=== PATIENT | female | born 1960 | race Caucasian/White ===

== ENCOUNTER 2016-11-23 13:10 | Emergency (ER) | payer SELFPAY ==
[~2016-11-23] VITALS: Ht 170.2 cm; Wt 67.0 kg
[~2016-11-23 13:10] MED LIST: LISI-363 PO
[2016-11-23 13:12] VITALS: BP 193/92; PULSE 96; RESP 18; TEMP 98.1; O2SAT 98
[2016-11-23] MEDS ORDERED: LISI-515 PO (13:36)
[2016-11-23] MEDS ORDERED: SODIUM CHLOR 0.9% 1000 ML INJ 1,000 ML IV SCH (13:42)
[2016-11-23] MEDS ORDERED: SODIUM CHLORIDE 0.9% FLUSH 10 ML FLUSH IV FLUSH PRN (13:45)
[2016-11-23] MEDS ORDERED: MORPHINE SULFATE 4 MG/ML INJ IV PUSH ONE (13:45)
--- NOTE | 2016-11-23 13:45 | PD ---
HPI Chief Complaint: Complaint Time Seen by Provider: 13:36 Travel History International Travel<30 days: No Contact w/Intl Traveler<30days: No Traveled to known affect area: No History of Present Illness HPI 56-year-old female with history of kidney stones, here for evaluation of right flank pain. The patient reports that she has had right flank pain for the last 2 weeks. She describes the pain as sharp, constant, moderate, no modifying factors, no urinary symptoms, associated with nausea and a couple episodes of vomiting. Chart review shows the patient has been here in the past with alcohol intoxication. She tells me that her last alcoholic beverage was about a week ago. She denies illicit drug use. She reports having subjective fevers and chills. PFSH Past Medical History Arthritis: No Asthma: No Autoimmune Disease: No Blood Disorders: No Anxiety: No Depression: Yes Heart Rhythm Problems: No Cancer: No Cardiac Catheterization: Yes (ON HISTORY, UNKNOWN DATE) Cardiovascular Problems: Yes High Cholesterol: Yes Chemotherapy: No Chest Pain: No Congestive Heart Failure: No COPD: No Cerebrovascular Accident: No Diabetes: No Diminished Hearing: Yes Endocrine: No Gastrointestinal Disorders: No Genetic Disorder: Yes GERD: Yes Genitourinary: Yes (precancer uterine cells) Headaches: No Hepatitis: No Hiatal Hernia: No Hypertension: Yes Immune Disorder: No Kidney Stones: Yes Musculoskeletal: Yes (DJD) Neurologic: No Psychiatric: Yes Respiratory: Yes (recent intubation) Myocardial Infarction: No Radiation Therapy: No Renal Failure: Yes Seizures: No Sickle Cell Disease: No Sleep Apnea: No Thyroid Disease: No Ulcer: No Tetanus Vaccination: > 5 Years ?: Not Menopausal: Yes : 3 Para: 3 Miscarriage: 1 : 1 Past Surgical History Abdominal Surgery: No AICD: No Cardiac Surgery: No Ear Surgery: No Endocrine Surgery: Yes ( L LITHOTRIPSY;L NEPHROSTOMY PER PT) Eye Surgery: No Genitourinary Surgery: Yes (KIDNEY SURGERY) Gynecologic Surgery: No Joint Replacement: No Neurologic Surgery: No Oral Surgery: No Pacemaker: No Thoracic Surgery: No Other Surgery: Yes Family History Family Myocardial Infarction: Yes (FATHER) Social History Alcohol Use: No (BEERS / WINE EVERY OTHER DAY ) Tobacco Use: Yes (1/2 PACK PER DAY) Substance Use: No Allergies-Medications (Allergen,Severity, Reaction): Coded Allergies: Bactrim (Verified Allergy, Severe, rash, 3/22/17) Reported Meds & Prescriptions Reported Meds & Active Scripts Active Reported Lisinopril 20 Mg Tab 20 Mg PO DAILY Review of Systems Except as stated in HPI: all other systems reviewed are Neg Physical Exam Narrative GENERAL: Well-developed, well-nourished, awake, alert, no acute distress. SKIN: Warm and dry. No rash. HEAD: Atraumatic. Normocephalic. EYES: Pupils equal and round. No scleral icterus. No injection or drainage. ENT: Mucous membranes pink and moist. CARDIOVASCULAR: Regular rate and rhythm. RESPIRATORY: No accessory muscle use. Clear to auscultation. Breath sounds equal bilaterally. GASTROINTESTINAL: Abdomen soft, non-tender, nondistended. MUSCULOSKELETAL: No obvious deformities. No clubbing. No cyanosis. No edema. No midline vertebral step-off or tenderness. Mild right CVA tenderness. No left CVA tenderness. NEUROLOGICAL: Awake and alert. No obvious cranial nerve deficits. Motor grossly within normal limits. Normal speech. PSYCHIATRIC: Flat affect. Poor eye contact. Data Data Last Documented VS Vital Signs Date Time Temp Pulse Resp B/P Pulse Ox O2 Delivery O2 Flow Rate FiO2 11/23/16 15:20 64 18 177/77 98 Room Air 11/23/16 13:12 98.1 Orders Complete Blood Count With Diff (11/23/16 13:42) Comprehensive Metabolic Panel (11/23/16 13:42) Lipase (11/23/16 13:42) Prothrombin Time / Inr (Pt) (11/23/16 13:42) Act Partial Throm Time (Ptt) (11/23/16 13:42) Urinalysis - C+S If Indicated (11/23/16 13:42) Ct Abd/Pel W Iv Contrast(Rout) (11/23/16 13:42) Iv Access Insert/Monitor (11/23/16 13:42) Ecg Monitoring (11/23/16 13:42) Oximetry (11/23/16 13:42) Morphine Inj (Morphine Inj) (11/23/16 13:45) Sodium Chlor 0.9% 1000 Ml Inj (Ns 1000 M (11/23/16 13:42) Sodium Chloride 0.9% Flush (Ns Flush) (11/23/16 13:45) Alcohol (Ethanol) (11/23/16 13:42) Urine Culture (11/23/16 14:20) Ceftriaxone Inj (Rocephin Inj) (11/23/16 15:30) Iohexol 350 Inj (Omnipaque 350 Inj) (11/23/16 16:19) Ciprofloxacin (Cipro) (11/23/16 17:30) Labs Laboratory Tests Test 11/23/16 11/23/16 14:05 14:20 White Blood Count 6.3 TH/MM3 Red Blood Count 4.02 MIL/MM3 Hemoglobin 14.0 GM/DL Hematocrit 41.3 % Mean Corpuscular Volume 102.6 FL Mean Corpuscular Hemoglobin 34.9 PG Mean Corpuscular Hemoglobin 34.0 % Concent Red Cell Distribution Width 13.5 % Platelet Count 302 TH/MM3 Mean Platelet Volume 9.0 FL Neutrophils (%) (Auto) 63.3 % Lymphocytes (%) (Auto) 23.5 % Monocytes (%) (Auto) 11.4 % Eosinophils (%) (Auto) 1.4 % Basophils (%) (Auto) 0.4 % Neutrophils # (Auto) 4.0 TH/MM3 Lymphocytes # (Auto) 1.5 TH/MM3 Monocytes # (Auto) 0.7 TH/MM3 Eosinophils # (Auto) 0.1 TH/MM3 Basophils # (Auto) 0.0 TH/MM3 CBC Comment DIFF FINAL Differential Comment Prothrombin Time 10.6 SEC Prothromb Time International 1.0 RATIO Ratio Activated Partial 29.4 SEC Thromboplast Time Sodium Level 138 MEQ/L Potassium Level 3.8 MEQ/L Chloride Level 101 MEQ/L Carbon Dioxide Level 30.7 MEQ/L Anion Gap 6 MEQ/L Blood Urea Nitrogen 8 MG/DL Creatinine 0.75 MG/DL Estimat Glomerular Filtration 80 ML/MIN Rate Random Glucose 110 MG/DL Calcium Level 10.4 MG/DL Total Bilirubin 0.4 MG/DL Aspartate Amino Transf 19 U/L (AST/SGOT) Alanine Aminotransferase 23 U/L (ALT/SGPT) Alkaline Phosphatase 56 U/L Total Protein 8.2 GM/DL Albumin 3.9 GM/DL Lipase 215 U/L Ethyl Alcohol Level 6 MG/DL Urine Color YELLOW Urine Turbidity HAZY Urine pH 7.0 Urine Specific [place] 1.017 Urine Protein 30 mg/dL Urine Glucose (UA) NEG mg/dL Urine Ketones NEG mg/dL Urine Occult Blood NEG Urine Nitrite POS Urine Bilirubin NEG Urine Urobilinogen LESS THAN 2.0 MG/DL Urine Leukocyte Esterase LARGE Urine RBC 6 /hpf Urine WBC 73 /hpf Urine Squamous Epithelial 13 /hpf Cells Urine Transitional Epithelial <1 /hpf Cells Urine Bacteria MANY /hpf Microscopic Urinalysis Comment CULTURE INDICATED MDM Medical Decision Making Medical Screen Exam Complete: Yes Emergency Medical Condition: Yes Medical Record Reviewed: Yes Differential Diagnosis Nephrolithiasis, pyelonephritis, ureterolithiasis, cholecystitis, musculoskeletal pain Narrative Course Vital signs reviewed. CBC is remarkable for MCV of 102.6, otherwise unremarkable. CMP is essentially unremarkable. Lipase is 215. Alcohol level is 6. UA shows positive nitrites, large leukocyte esterase, 6 rbc's, 73 wbc's, many bacteria. CT abdomen pelvis: CONCLUSION: 1. Diffuse hepatic fatty infiltration. 2. Multiple nonobstructing left renal calculi. 3. 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 This does not require any further evaluation/followup. 4. Diverticular disease of the sigmoid without diverticulitis. 5. Degenerated, calcified fibroids. 6. Small amount of free fluid in the pelvis. Etiology is uncertain. Is the patient still menstruating? Patient was made aware of all findings. She is resting comfortably. She'll be discharged home with a prescription for Cipro for pyelonephritis. She is stable for discharge home with outpatient follow-up with a primary care physician this week. She was informed on when to return to the emergency department. She verbalizes understanding and agreement with plan. Diagnosis Primary Impression: Pyelonephritis Referrals: Primary Care Physician 3 days Additional Instructions: Follow-up with a primary care physician this week. Take antibiotic as prescribed. Return to the emergency department for worsening symptoms or any other concerns. Scripts Tramadol 50 Mg Tab50 Mg PO Q6H PRN (PAIN) #12 TAB Ref 0 Prov:Néstor Benton MD 11/23/16 Ciprofloxacin (Cipro)500 Mg Uic583 Mg PO BID 7 Days Ref 0 Prov:Néstor Benton MD 11/23/16 Disposition: 01 DISCHARGE HOME Condition: Stable Néstor Benton MD Nov 23, 2016 13:45
[2016-11-23 14:29] LABS: BASOPHIL % 0.4 % (0.0-2.0); EOSINOPHIL # 0.1 TH/MM3 (0-0.4); EOSINOPHIL % 1.4 % (0.0-4.0); HEMATOCRIT 41.3 % (35.0-46.0); HEMO FLAGS DIFF FINAL; LYMPH % 23.5 % (9.0-44.0); LYMPHOCYTE # 1.5 TH/MM3 (1.0-4.8); MEAN CELL VOLUME 102.6 FL (80.0-100.0); MEAN CORPUSCULAR HEMOGLOBIN 34.9 PG (27.0-34.0); MONO % 11.4 % (0.0-8.0); NEUT % 63.3 % (16.0-70.0); PLATELET COUNT 302 TH/MM3 (150-450); RED BLOOD COUNT 4.02 MIL/MM3 (4.00-5.30); RED CELL DISTRIBUTION WIDTH 13.5 % (11.6-17.2); WHITE BLOOD COUNT 6.3 TH/MM3 (4.0-11.0)
[2016-11-23 14:30] VITALS: RESP 18; O2SAT 100
[2016-11-23 14:41] LABS: APTT (PATIENT) 29.4 SEC (24.3-30.1); PROTHROMBIN TIME - PATIENT 10.6 SEC (9.8-11.6)
[2016-11-23 14:43] LABS: ALT (GPT) 23 U/L (10-53); ANION GAP 6 MEQ/L (5-15); AST (GOT) 19 U/L (15-37); BICARBONATE 30.7 MEQ/L (21.0-32.0); BLOOD UREA NITROGEN 8 MG/DL (7-18); CHLORIDE 101 MEQ/L (98-107); GLOMERULAR FILTRATION RATE 80 ML/MIN (>89); POTASSIUM 3.8 MEQ/L (3.5-5.1); SODIUM (NA) 138 MEQ/L (136-145)
[2016-11-23 14:45] LABS: ALKALINE PHOSPHATASE 56 U/L (45-117); TOTAL BILIRUBIN ADULT 0.4 MG/DL (0.2-1.0)
[2016-11-23 15:03] LABS: BACTERIA, URINE MANY /hpf; BLOOD, URINE NEG (NEG); COMMENT (UR) CULTURE INDICATED; CULTURE IF INDICATED CULTURE INDICATED; GLUCOSE,URINE NEG (NEG); KETONE, URINE NEG (NEG); SQUAMOUS EPITHELIAL CELL URINE 13 /hpf (0-5); TRANSITIONAL EPI CELLS, URINE <1 /hpf; URINE COLOR YELLOW (YELLW/STRAW)
[2016-11-23 15:04] LABS: NITRITE,URINE POS (NEG)
[2016-11-23 15:20] VITALS: BP 177/77; PULSE 64; RESP 18; O2SAT 98
[2016-11-23] MEDS ORDERED: cefTRIAXone INJ 1,000 MG in SODIUM CHLORIDE 0.9% INJ 100 ML IV ONE (15:30)
[2016-11-23] MEDS ORDERED: IOHEXOL 350 MG/ML 10 ML VIAL (for RAD DIAG) IV ONE (16:19)
--- NOTE | 2016-11-23 16:45 | RADRPT ---
EXAM DATE/TIME: 11/23/2016 16:13 [facility] COMPARISON: No previous studies available for comparison. INDICATIONS : Right flank pain and urinary frequency IV CONTRAST: 86 cc Omnipaque 350 (iohexol) IV ORAL CONTRAST: No oral contrast ingested. RADIATION DOSE: 8.27 CTDIvol (mGy) MEDICAL HISTORY : Cardiovascular disease. Hypertension. Renal insufficiency. SURGICAL HISTORY : None. ENCOUNTER: Initial ACUITY: 1 day PAIN SCALE: 6/10 LOCATION: Right flank TECHNIQUE: Volumetric scanning of the abdomen and pelvis was performed. Using automated exposure control and ad justment of the mA and/or kV according to patient size, radiation dose was kept as low as reasonably achievable to obtain optimal diagnostic quality images. FINDINGS: LOWER LUNGS: The visualized lower lungs are clear. LIVER: Diffusely decreased hepatic density characteristic of fatty infiltration. Benign, subcentimeter dystr ophic calcification medially in the right hepatic lobeq. CBD is prominent at 1 cm. Etiology is uncert ain. No calcified gallstones. SPLEEN: Normal size without lesion. PANCREAS: Within normal limits. KIDNEYS: Normal in size and shape. There appears to be a 1 cm rim calcified aneurysm in the left renal hilum. [place] left renal cyst in the anterior midpole cortex. Nonobstructing calculi in the upper and lower pole collecting system of the left kidney. Right kidney is radiographically intact. ADRENAL GLANDS: Within normal limits. VASCULAR: There is no aortic aneurysm. BOWEL/MESENTERY: Diverticular disease of the sigmoid colon without diverticulitis. ABDOMINAL WALL: Within normal limits. RETROPERITONEUM: There is no lymphadenopathy. BLADDER: No wall thickening or mass. REPRODUCTIVE: Degenerated, calcified fibroid. Uterus is otherwise intact. Small amount of free fluid in the pelvis. INGUINAL: There is no lymphadenopathy or hernia. MUSCULOSKELETAL: Within normal limits for patient age. CONCLUSION: 1. Diffuse hepatic fatty infiltration. 2. Multiple nonobstructing left renal calculi. 3. 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 This does not require any further evaluati on/followup. 4. Diverticular disease of the sigmoid without diverticulitis. 5. Degenerated, calcified fibroids. 6. Small amount of free fluid in the pelvis. Etiology is uncertain. Is the patient still menstruating ? Obie Krishnan MD on November 23, 2016 at 16:37 Board Certified Radiologist. This report was verified electronically.
[2016-11-23] MEDS ORDERED: CIPR-9 PO (17:26)
[2016-11-23] MEDS ORDERED: TRAM50TA PO (17:26)
[2016-11-23] MEDS ORDERED: CIPROFLOXACIN 500 MG TAB PO ONE (17:30)
== END 2016-11-23 18:13 | disposition home or self-care (01) ==
LOC: NEPC 13:10
DX: N12 Tubulo-interstitial nephritis, not specified as acute or chronic (principal); B96.20 Unspecified Escherichia coli [E. coli] as the cause of diseases classified elsewhere; R11.2 Nausea with vomiting, unspecified; I10 Essential (primary) hypertension; E78.00 Pure hypercholesterolemia, unspecified; H91.90 Unspecified hearing loss, unspecified ear; F17.200 Nicotine dependence, unspecified, uncomplicated; Z87.442 Personal history of urinary calculi; Z87.448 Personal history of other diseases of urinary system; Z86.59 Personal history of other mental and behavioral disorders; Z86.79 Personal history of other diseases of the circulatory system; Z87.19 Personal history of other diseases of the digestive system; Z87.42 Personal history of other diseases of the female genital tract; Z87.39 Personal history of other diseases of the musculoskeletal system and connective tissue
CPT/HCPCS: 74177; 80053; 80307; 81001; 83690; 85025; 85610; 85730; 87077; 87086; 87186; 96361; 96365; 96375; 99284; J0696; J2270; J7030; Q9967

== ENCOUNTER 2018-01-13 16:32 | Emergency (ER) | payer MEDICAID ==
[~2018-01-13] VITALS: Ht 170.2 cm; Wt 65.0 kg
[~2018-01-13 16:32] MED LIST changes: +CIPR-9 PO; -LISI-363 PO; +LISI-515 PO; +PROM25TA10 PO; +THIA100 PO
[2018-01-13 16:39] VITALS: BP 133/62; PULSE 95; RESP 18; O2SAT 97
[2018-01-13] MEDS ORDERED: SODIUM CHLOR 0.9% 1000 ML INJ 1,000 ML IV SCH (16:50)
[2018-01-13 16:55] VITALS: O2SAT 97
[2018-01-13 17:00] VITALS: BP 161/68; PULSE 110; RESP 18; O2SAT 97
[2018-01-13] MEDS ORDERED: MORPHINE SULFATE 4 MG/ML INJ IV PUSH ONE (17:00)
[2018-01-13] MEDS ORDERED: PROCHLORPERAZINE INJ 10 MG/2 ML VIAL IV PUSH ONE (17:00)
[2018-01-13] MEDS ORDERED: SODIUM CHLORIDE 0.9% FLUSH 10 ML FLUSH IV FLUSH PRN (17:00)
[2018-01-13] MEDS ORDERED: diphenhydrAMINE HCL 50 MG/ML VIAL IV PUSH ONE (17:00)
[2018-01-13 17:18] LABS: AUTOMATED NEUTROPHIL # 8.4 TH/MM3 (1.8-7.7); BASOPHIL % 0.1 % (0.0-2.0); EOSINOPHIL % 0.1 % (0.0-4.0); HEMATOCRIT 41.2 % (35.0-46.0); LYMPH % 13.1 % (9.0-44.0); LYMPHOCYTE # 1.4 TH/MM3 (1.0-4.8); MEAN CELL VOLUME 105.2 FL (80.0-100.0); MEAN CORPUSCULAR HEMOGLOBIN 35.8 PG (27.0-34.0); MEAN CORPUSCULAR HGB CONC 34.1 % (32.0-36.0); MEAN PLATELET VOLUME 8.4 FL (7.0-11.0); MONO % 7.6 % (0.0-8.0); MONOCYTE # 0.8 TH/MM3 (0-0.9); NEUT % 79.1 % (16.0-70.0); PLATELET COUNT 179 TH/MM3 (150-450); RED BLOOD COUNT 3.91 MIL/MM3 (4.00-5.30); RED CELL DISTRIBUTION WIDTH 14.4 % (11.6-17.2); WHITE BLOOD COUNT 10.7 TH/MM3 (4.0-11.0)
--- NOTE | 2018-01-13 17:19 | PD ---
HPI . Abdominal pain Chief Complaint: Abdominal Pain Time Seen by Provider: 16:50 Travel History International Travel<30 days: No Contact w/Intl Traveler<30days: No Traveled to known affect area: No History of Present Illness HPI Patient was brought to us by [facility] with a chief complaint of abdominal pain. Onset was yesterday. She describes right lower quadrant abdominal pain which she states is a sharp/stabbing pain which has been getting progressively worse and which is currently rated 10/10. She has also had nausea, vomiting and one loose stool. She reports approximately 20 episodes of emesis yesterday but only a few episodes of emesis today. She denies any urinary tract symptoms such as dysuria, frequency or urgency. This patient is homeless. She has a history of chronic alcohol and tobacco abuse. She was admitted to the hospital in mid December because of sepsis secondary to urinary tract infection. PFSH Past Medical History Arthritis: No Asthma: No Autoimmune Disease: No Blood Disorders: No Anxiety: No Depression: Yes Heart Rhythm Problems: No Cancer: No Cardiac Catheterization: Yes (ON HISTORY, UNKNOWN DATE) Cardiovascular Problems: Yes High Cholesterol: Yes Chemotherapy: No Chest Pain: No Congestive Heart Failure: No COPD: No Cerebrovascular Accident: No Diabetes: No Diminished Hearing: Yes Endocrine: No Gastrointestinal Disorders: No Genetic Disorder: Yes GERD: Yes Genitourinary: Yes (precancer uterine cells) Headaches: No Hepatitis: No Hiatal Hernia: No Hypertension: Yes Immune Disorder: No Kidney Stones: Yes Musculoskeletal: Yes (DJD) Neurologic: No Psychiatric: Yes Reproductive: No Respiratory: No Myocardial Infarction: No Radiation Therapy: No Renal Failure: Yes Seizures: No Sickle Cell Disease: No Sleep Apnea: No Thyroid Disease: No Ulcer: No ?: Not Menopausal: Yes : 3 Para: 3 Miscarriage: 1 : 1 Past Surgical History Abdominal Surgery: No AICD: No Cardiac Surgery: No Ear Surgery: No Endocrine Surgery: Yes ( L LITHOTRIPSY;L NEPHROSTOMY PER PT) Eye Surgery: No Genitourinary Surgery: Yes (KIDNEY SURGERY) Gynecologic Surgery: No Insulin Pump: No Joint Replacement: No Neurologic Surgery: No Oral Surgery: No Pacemaker: No Thoracic Surgery: No Other Surgery: Yes Family History Family Myocardial Infarction: Yes (FATHER) Social History Alcohol Use: No (BEERS / WINE EVERY OTHER DAY ) Tobacco Use: Yes (1/2 PACK PER DAY) Substance Use: No Allergies-Medications (Allergen,Severity, Reaction): Coded Allergies: sulfamethoxazole (Unverified Allergy, Severe, rash, 04/18/17) trimethoprim (Unverified Allergy, Severe, rash, 04/18/17) Reported Meds & Prescriptions Reported Meds & Active Scripts Active Phenergan (Promethazine HCl) 25 Mg Tablet 25 Mg PO Q6H PRN Cipro (Ciprofloxacin HCl) 500 Mg Tab 500 Mg PO BID Gnp Vitamin B-1 (Thiamine HCl) 100 Mg Tab 100 Mg PO DAILY Reported Lisinopril 20 Mg Tab 20 Mg PO DAILY Review of Systems Except as stated in HPI: all other systems reviewed are Neg General / Constitutional: No: Fever, Chills Cardiovascular: No: Chest Pain or Discomfort Respiratory: No: Shortness of Breath Gastrointestinal: Positive: Nausea, Vomiting, Diarrhea, Abdominal Pain Genitourinary: No: Urgency, Frequency, Dysuria Physical Exam Narrative GENERAL: Disheveled woman who is in no acute distress. SKIN: warm/dry. HEAD: Normocephalic. Atraumatic. EYES: Pupils equal and round. No scleral icterus. No injection or drainage. ENT: No nasal bleeding or discharge. Mucous membranes pink and moist. NECK: Trachea midline. Full range of motion without pain.. CARDIOVASCULAR: Regular rate and rhythm. Heart sounds normal. RESPIRATORY: No accessory muscle use. Clear to auscultation. Breath sounds equal bilaterally. GASTROINTESTINAL: Abdomen soft. Right-sided abdominal tenderness with no guarding or rebound. Bowel sounds present. Nondistended. MUSCULOSKELETAL: No obvious deformities. NEUROLOGICAL: Awake and alert. No obvious cranial nerve deficits. Motor grossly within normal limits. Normal speech. PSYCHIATRIC: Appropriate mood and affect; insight and judgment normal. Data Data Last Documented VS Vital Signs Date Time Temp Pulse Resp B/P (MAP) Pulse Ox O2 Delivery O2 Flow Rate FiO2 01/13/18 18:24 81 18 104/58 (73) 100 Nasal Cannula 2.00 Orders Orders Electrocardiogram (01/13/18 ) Complete Blood Count With Diff (01/13/18 16:50) Comprehensive Metabolic Panel (01/13/18 16:50) Lipase (01/13/18 16:50) Urinalysis - C+S If Indicated (01/13/18 16:50) Ct Abd/Pel W/O Iv Contrast (01/13/18 16:50) Iv Access Insert/Monitor (01/13/18 16:50) Ecg Monitoring (01/13/18 16:50) Oximetry (01/13/18 16:50) Morphine Inj (Morphine Inj) (01/13/18 17:00) Sodium Chlor 0.9% 1000 Ml Inj (Ns 1000 M (01/13/18 16:50) Sodium Chloride 0.9% Flush (Ns Flush) (01/13/18 17:00) Electrocardiogram (01/13/18 16:50) Diphenhydramine Inj (Benadryl Inj) (01/13/18 17:00) Prochlorperazine Inj (Compazine Inj) (01/13/18 17:00) Potassium Chloride (Kcl) (01/13/18 18:45) Labs Laboratory Tests Test 01/13/18 17:07 White Blood Count 10.7 TH/MM3 Red Blood Count 3.91 MIL/MM3 Hemoglobin 14.0 GM/DL Hematocrit 41.2 % Mean Corpuscular Volume 105.2 FL Mean Corpuscular Hemoglobin 35.8 PG Mean Corpuscular Hemoglobin Concent 34.1 % Red Cell Distribution Width 14.4 % Platelet Count 179 TH/MM3 Mean Platelet Volume 8.4 FL Neutrophils (%) (Auto) 79.1 % Lymphocytes (%) (Auto) 13.1 % Monocytes (%) (Auto) 7.6 % Eosinophils (%) (Auto) 0.1 % Basophils (%) (Auto) 0.1 % Neutrophils # (Auto) 8.4 TH/MM3 Lymphocytes # (Auto) 1.4 TH/MM3 Monocytes # (Auto) 0.8 TH/MM3 Eosinophils # (Auto) 0.0 TH/MM3 Basophils # (Auto) 0.0 TH/MM3 CBC Comment DIFF FINAL Differential Comment Blood Urea Nitrogen 20 MG/DL Creatinine 0.85 MG/DL Random Glucose 100 MG/DL Total Protein 6.7 GM/DL Albumin 3.2 GM/DL Calcium Level 7.9 MG/DL Alkaline Phosphatase 58 U/L Aspartate Amino Transf (AST/SGOT) 37 U/L Alanine Aminotransferase (ALT/SGPT) 29 U/L Total Bilirubin 0.6 MG/DL Sodium Level 138 MEQ/L Potassium Level 2.9 MEQ/L Chloride Level 101 MEQ/L Carbon Dioxide Level 24.6 MEQ/L Anion Gap 12 MEQ/L Estimat Glomerular Filtration Rate 69 ML/MIN Lipase 298 U/L [facility] Medical Decision Making Medical Screen Exam Complete: Yes Emergency Medical Condition: Yes Medical Record Reviewed: Yes (please see HPI for pertinent review of records) Interpretation(s) EKG shows a lot of artifact. It is a sinus rhythm. She does not seem to have any ST segment elevation or depression but it is difficult to interpret because of the artifact. Differential Diagnosis Differential diagnosis of abdominal pain includes but is not limited to gastritis, pancreatitis, hepatitis, gastroenteritis, constipation, urinary retention, peptic ulcer disease, diverticulitis or appendicitis Narrative Course This patient presents with a chief complaint of nausea, vomiting and diarrhea associated with right lower quadrant abdominal pain. An IV has been started and she has been given IV morphine, Compazine and Benadryl. Abdominal pain workup is in process including a CT to look for a kidney stone. We should be able to see her appendix as well. Rescue reports that there EKG machine read a STEMI. Her EKG does not show a STEMI. However, she does have a troponin pending as well. Last Impressions Abdomen/Pelvis CT 01/13/18 1650 Signed Impressions: Service Date/Time: Saturday, January 13, 2018 17:28 - CONCLUSION: 1. No evidence of hydronephrosis. 2. There are 2 nonobstructing stones in the left kidney. No calcified renal stones the right kidney. 3. Scattered diverticulosis of the sigmoid colon without inflammatory changes. 4. 2.7 cm calcified uterine fibroid. 5. No acute pathology. Kailash Burger MD CBC & BMP Diagram 01/13/18 17:07 Total Protein 6.7, Albumin 3.2 L, Calcium Level 7.9 L, Alkaline Phosphatase 58, Aspartate Amino Transf (AST/SGOT) 37, Alanine Aminotransferase (ALT/SGPT) 29, Total Bilirubin 0.6 Potassium has been replaced orally. UA is still pending. Her care is being turned over to the oncoming provider pending her urinalysis Diagnosis Primary Impression: Right lower quadrant abdominal pain Additional Impressions: Vomiting Qualified Codes: R11.2 - Nausea with vomiting, unspecified Diarrhea Qualified Codes: R19.7 - Diarrhea, unspecified Condition: Stable Terra Silva MD January 13, 2018 17:19
[2018-01-13 17:24] VITALS: BP 107/57; PULSE 61; RESP 18; O2SAT 97
[2018-01-13 17:54] LABS: ALBUMIN 3.2 GM/DL (3.4-5.0); ALKALINE PHOSPHATASE 58 U/L (45-117); ALT (GPT) 29 U/L (10-53); AST (GOT) 37 U/L (15-37); BICARBONATE 24.6 MEQ/L (21.0-32.0); BLOOD UREA NITROGEN 20 MG/DL (7-18); CALCIUM 7.9 MG/DL (8.5-10.1); CHLORIDE 101 MEQ/L (98-107); CREATININE 0.85 MG/DL (0.50-1.00); GLOMERULAR FILTRATION RATE 69 ML/MIN (>89); GLUCOSE,RANDOM 100 MG/DL (74-106); SODIUM (NA) 138 MEQ/L (136-145); TOTAL BILIRUBIN ADULT 0.6 MG/DL (0.2-1.0); TOTAL PROTEIN 6.7 GM/DL (6.4-8.2)
--- NOTE | 2018-01-13 18:00 | RADRPT ---
EXAM DATE/TIME: 01/13/2018 17:28 [facility] COMPARISON: No previous studies available for comparison. INDICATIONS : Right flank pain; rule out renal calculi. ORAL CONTRAST: No oral contrast ingested. RADIATION DOSE: 6.64 CTDIvol (mGy) MEDICAL HISTORY : Hypertension. Gastroesophageal reflux disease. Renal insufficiency. SURGICAL HISTORY : Lithotripsy, kidney surgery, Left nephrostomy ENCOUNTER: Initial ACUITY: 3 days PAIN SCALE: 7/10 LOCATION: Right flank TECHNIQUE: Volumetric scanning of the abdomen and pelvis was performed. Using automated exposure control and ad justment of the mA and/or kV according to patient size, radiation dose was kept as low as reasonably achievable to obtain optimal diagnostic quality images. DICOM format image data is available electro nically for review and comparison. The lack of IV contrast limits the diagnosis for certain organ pa thology. FINDINGS: LOWER LUNGS: The visualized lower lungs are clear. LIVER: There is diffuse fatty infiltration the liver. The gallbladder is grossly unremarkable. No dilated bi liary ducts. SPLEEN: Normal size without lesion. PANCREAS: Within normal limits. KIDNEYS: No evidence of hydronephrosis. No calcified right renal stones. There is a 6 mm nonobstructive stone in the lower pole the left kidney. There is a 3 mm nonobstructive stone in the lower pole the left ki dney. There are some vascular calcifications associated with the left kidney. The ureters are not dil ated. ADRENAL GLANDS: Within normal limits. VASCULAR: There is no aortic aneurysm. BOWEL/MESENTERY: The stomach, small bowel, and colon demonstrate no acute abnormality. There is no free intraperitone al air or fluid. A few scattered diverticula are seen along the sigmoid colon. No inflammatory change s. ABDOMINAL WALL: Within normal limits. RETROPERITONEUM: There is no lymphadenopathy. BLADDER: No wall thickening or mass. No bladder stones. REPRODUCTIVE: 2.7 cm calcified uterine fibroid along the superior fundus. No definite pelvic masses. INGUINAL: There is no lymphadenopathy or hernia. MUSCULOSKELETAL: Within normal limits for patient age. CONCLUSION: 1. No evidence of hydronephrosis. 2. There are 2 nonobstructing stones in the left kidney. No calcified renal stones the right kidney. 3. Scattered diverticulosis of the sigmoid colon without inflammatory changes. 4. 2.7 cm calcified uterine fibroid. 5. No acute pathology. Kailash Burger MD on January 13, 2018 at 17:53 Board Certified Radiologist. This report was verified electronically.
[2018-01-13 18:24] VITALS: BP 104/58; PULSE 81; RESP 18; O2SAT 100
[2018-01-13] MEDS ORDERED: POTASSIUM CHLORIDE 20 MEQ CONTROLLED RELEASE TAB PO ONE (18:45)
[2018-01-13 19:17] LABS: BACTERIA, URINE OCC /hpf; BILIRUBIN, URINE NEG (NEG); BLOOD, URINE NEG (NEG); GLUCOSE,URINE NEG (NEG); KETONE, URINE NEG (NEG); NITRITE,URINE NEG (NEG); PH, URINE 6.5 (5.0-8.5); SQUAMOUS EPITHELIAL CELL URINE 10 /hpf (0-5); URINE COLOR YELLOW (YELLW/STRAW); URINE LEUKOCYTE ESTERASE TRACE (NEG)
[2018-01-13] MEDS ORDERED: ZOFR4TAB PO (19:25)
--- NOTE | 2018-01-14 17:37 | EKG ---
Date Performed: 01/13/2018 Time Performed: 16:41:23 PTAGE: 57 years EKG: Sinus rhythm WITH OCCASIONAL ECTOPIC PREMATURE COMPLEXES DIFFUSE ST CHANGES MARKEDLY PROLONGED QTc Compared to PREVIOUS TRACING , ST changes and significantly prolonged QTc present DOCTOR: Matt Molina Interpretating Date/Time 01/14/2018 17:35:45
== END 2018-01-13 20:08 | disposition home or self-care (01) ==
LOC: NEPC 16:32
DX: R10.31 Right lower quadrant pain (principal); R11.2 Nausea with vomiting, unspecified; R19.7 Diarrhea, unspecified; I10 Essential (primary) hypertension; Z59.0 Homelessness; Z72.0 Tobacco use; Z72.89 Other problems related to lifestyle
CPT/HCPCS: 74176; 80053; 81001; 83690; 83735; 85025; 93005; 96361; 96374; 96375; 99285; J0780; J1200; J2270; J7030

== ENCOUNTER 2018-01-18 09:51 | Emergency (ER) | payer MEDICAID ==
[~2018-01-18 09:51] MED LIST changes: +ZOFR4TAB PO
[2018-01-18 10:04] VITALS: BP 141/80; PULSE 98; RESP 16; O2SAT 99
--- NOTE | 2018-01-18 10:43 | PD ---
HPI Chief Complaint: Pain: Acute or Chronic Time Seen by Provider: 10:42 Travel History International Travel<30 days: No Contact w/Intl Traveler<30days: No Traveled to known affect area: No History of Present Illness HPI Patient comes in complaining of a right hip sided pain, since a couple of falls that she has had over the last week or so. Patient uses a cane normally to ambulate states that the first time she felt it was because of a mechanical she lost her balance and landed down. She was evaluated and was not found to have anything broken. However she returns now stating that while she was using her cane, the pain was so severe over that right hip area that she could not hold her weight and she fell down secondary to the pain. Currently she describes the right hip area, as sharp pain, radiating down her leg, 9 out of 10, worse with movement or activity. Patient denies any numbness to her groin area, and also denies any fecal or urinary incontinence. States allergy to sulfa Past medical history significant for use of corrective lenses, hypercholesterolemia hypertension, GERD, kidney stone extraction and lithotripsy , degenerative joint disease, depression, PFSH Past Medical History Arthritis: No Asthma: No Autoimmune Disease: No Blood Disorders: No Anxiety: No Depression: Yes Heart Rhythm Problems: No Cancer: No Cardiac Catheterization: Yes (ON HISTORY, UNKNOWN DATE) Cardiovascular Problems: Yes High Cholesterol: Yes Chemotherapy: No Chest Pain: No Congestive Heart Failure: No COPD: No Cerebrovascular Accident: No Diabetes: No Diminished Hearing: Yes Endocrine: No Gastrointestinal Disorders: No Genetic Disorder: Yes GERD: Yes Genitourinary: Yes (precancer uterine cells) Headaches: No Hepatitis: No Hiatal Hernia: No Hypertension: Yes Immune Disorder: No Kidney Stones: Yes Musculoskeletal: Yes (DJD) Neurologic: No Psychiatric: Yes Reproductive: No Respiratory: No Myocardial Infarction: No Radiation Therapy: No Renal Failure: Yes Seizures: No Sickle Cell Disease: No Sleep Apnea: No Thyroid Disease: No Ulcer: No Menopausal: Yes : 3 Para: 3 Miscarriage: 1 : 1 Past Surgical History Abdominal Surgery: No AICD: No Cardiac Surgery: No Ear Surgery: No Endocrine Surgery: Yes ( L LITHOTRIPSY;L NEPHROSTOMY PER PT) Eye Surgery: No Genitourinary Surgery: Yes (KIDNEY SURGERY) Gynecologic Surgery: No Insulin Pump: No Joint Replacement: No Neurologic Surgery: No Oral Surgery: No Pacemaker: No Thoracic Surgery: No Other Surgery: Yes Social History Alcohol Use: No (BEERS / WINE EVERY OTHER DAY ) Tobacco Use: Yes (1/2 PACK PER DAY) Substance Use: No Allergies-Medications (Allergen,Severity, Reaction): Coded Allergies: sulfamethoxazole (Verified Allergy, Severe, rash, 01/18/18) trimethoprim (Verified Allergy, Severe, rash, 01/18/18) Reported Meds & Prescriptions Reported Meds & Active Scripts Active Reported Lisinopril 20 Mg Tab 20 Mg PO DAILY Review of Systems Musculoskeletal: Positive: Limited ROM, Pain (Right hip) Physical Exam Narrative GENERAL: SKIN: Warm and dry. HEAD: Atraumatic. Normocephalic. EYES: Pupils equal and round. No scleral icterus. No injection or drainage. ENT: No nasal bleeding or discharge. Mucous membranes pink and moist. NECK: Trachea midline. No JVD. CARDIOVASCULAR: Regular rate and rhythm. RESPIRATORY: No accessory muscle use. Clear to auscultation. Breath sounds equal bilaterally. GASTROINTESTINAL: Abdomen soft, non-tender, nondistended. MUSCULOSKELETAL: Extremities without clubbing, cyanosis, or edema. No obvious deformities. Interestingly on examination the patient does not have any pain on internal or external rotation of her hip, however she does have palpable reproducible tenderness to palpation when pressing on the mid gluteal region near the sciatic nerve exit and also along the pelvic anterior brim of the pelvic bone, near the ASIS region, no tenderness to palpation to the trochanter region NEUROLOGICAL: Awake and alert. No obvious cranial nerve deficits. Motor grossly within normal limits. Five out of 5 muscle strength in the arms and legs. Normal speech. PSYCHIATRIC: Appropriate mood and affect; insight and judgment normal. Data Data Last Documented VS Vital Signs Date Time Temp Pulse Resp B/P (MAP) Pulse Ox O2 Delivery O2 Flow Rate FiO2 01/18/18 10:04 98 16 141/80 (100) 99 Orders Orders Hip, Uni(Ap&Lat) W Ap Pelvis (01/18/18 ) [facility] Medical Decision Making Medical Screen Exam Complete: Yes Emergency Medical Condition: Yes Medical Record Reviewed: Yes Differential Diagnosis Strain versus sprain versus sciatica versus muscle spasm Narrative Course Right hip x-ray with AP pelvis read by radiologist as osteoarthritis right hip no definite fracture or dislocation. Diagnosis Primary Impression: Osteoarthritis right hip Patient Instructions: General Instructions, Osteoarthritis (DC) Scripts Celecoxib (Celebrex) 50 Mg Cap 50 MG PO BID for Pain Management for 5 Days, #10 CAP 0 Refills Prov: Mario Savage MD 01/18/18 Disposition: 01 DISCHARGE HOME Condition: Stable Mario Savage MD January 18, 2018 10:43
--- NOTE | 2018-01-18 12:05 | RADRPT ---
EXAM DATE/TIME: 01/18/2018 11:41 [place] COMPARISON: No previous studies available for comparison. INDICATIONS : Falling for the last month. MEDICAL HISTORY : Hypertension. Gastroesophageal reflux disease. Renal insufficiency. SURGICAL HISTORY : lithotrypsy, kidney surgery left nephrostomy. ENCOUNTER: Initial ACUITY: 1 month PAIN SCORE: 9/10 LOCATION: Right hip and pelvis FINDINGS: No definite fractures, or dislocations are identified. No definite lytic or sclerotic lesion is seen . Moderate to severe osteoarthritis is seen in the right hip joint particularly superolaterally. CONCLUSION: Osteoarthritis right hip no definite fracture. Jaron Miranda MD on January 18, 2018 at 12:01 Board Certified Radiologist. This report was verified electronically.
[2018-01-18] MEDS ORDERED: CELE50CA PO (12:34)
[2018-01-18] MEDS ORDERED: CELECOXIB 100 MG CAP PO ONE (13:30)
== END 2018-01-18 13:30 | disposition home or self-care (01) ==
LOC: NEPD 09:51
DX: M16.11 Unilateral primary osteoarthritis, right hip (principal); F17.200 Nicotine dependence, unspecified, uncomplicated; I10 Essential (primary) hypertension
CPT/HCPCS: 73502; 99283

== ENCOUNTER 2018-06-25 18:52 | Inpatient (IN) ==
[2018-06-25] MEDS ORDERED: Sod Chloride 0.9% Inj 1,000 ML IV.SIG SCH (19:45)
--- NOTE | 2018-06-25 19:52 | ED ---
HPI General Chief complaint: Syncope Stated complaint: dizziness, weakness Time Seen by Provider: 06/25/18 19:33 History of Present Illness HPI narrative: This is a 57-year-old female With history of alcoholism, hypertension on lisinopril, homelessness, presents via EMS for evaluation of syncope and low blood pressure. Patient reports that for the past few days she has been feeling dizzy and lightheaded. She reports that today she was walking and she passed out twice. She was found on the sidewalk by a passerby who called paramedics. Patient is currently complaining of dizziness and lightheadedness as well as left-sided facial pain where she hit the ground. On examination she is also complaining of lower abdominal pain. She denies neck or back pain, chest pain, shortness of breath, fevers, chills, cough, congestion , open wounds. Symptoms are moderate. She denies any history of IV drug use. She has no other complaints at this time. Related Data Home Medications Medication Instructions Recorded Confirmed celecoxib [Celebrex] 50 mg PO BID 06/25/18 06/25/18 lisinopril 30 mg PO DAILY 06/25/18 06/25/18 Allergies Allergy/AdvReac Type Severity Reaction Status Date / Time sulfamethoxazole Allergy Severe rash Verified 01/18/18 11:01 trimethoprim Allergy Severe rash Verified 01/18/18 11:01 Review of Systems ROS: all other systems reviewed are negative [facility] Medical History Medical History Anxiety (Acute) Arthritis (Acute) COPD (chronic obstructive pulmonary disease) (Acute) HTN (hypertension) (Acute) Hypercholesteremia (Acute) Social History Social History Substance History: No History of Abuse Second Hand Smoke Exposure: No Smoking Status: Current every day smoker Tobacco Type: Cigarettes How Often Do You Have a Drink Containing Alcohol: 2 to 3 times a week Recent Travel in [facility] within the Last 8 Weeks: No Recent Out of Country Travel within the Last 8 Weeks: No Immunization History Tetanus Immunization: Unsure Exam Narrative Exam Narrative: GENERAL: Disheveled appearing female who is in no acute distress. Vital signs reviewed. SKIN: Warm and dry. HEAD: Atraumatic. Normocephalic. EYES: Pupils equal and round. No scleral icterus. No injection or drainage. Nystagmus. ENT: No nasal bleeding or discharge. Mucous membranes pink and moist. Some tenderness to palpation to the left maxilla. NECK: Trachea midline. No JVD. CARDIOVASCULAR: Regular rate and rhythm. No murmur appreciated. RESPIRATORY: No accessory muscle use. Wheezing noted bilaterally. GASTROINTESTINAL: Abdomen soft, tender to palpation in the lower quadrants without guarding. MUSCULOSKELETAL: No obvious deformities. No clubbing. No cyanosis. No edema. NEUROLOGICAL: Awake and alert. No obvious cranial nerve deficits. Motor grossly within normal limits. Speech is mildly slurred. Course Initial Documented Vital Signs Temperature 97.7 F 06/25/18 19:32 Pulse Rate 75 06/25/18 19:32 Respiratory Rate 18 06/25/18 19:32 Blood Pressure 75/46 L 06/25/18 19:32 Pulse Oximetry 100 06/25/18 19:32 Last Documented Vital Signs Temperature 97.7 F 06/25/18 19:32 Pulse Rate 73 06/25/18 21:51 Respiratory Rate 16 06/25/18 21:51 Blood Pressure 87/50 L 06/25/18 21:51 Pulse Oximetry 100 06/25/18 21:51 Medical Decision Making ANNA Attestation ANNA supervised visit: Yes Attestation: I was present with the advanced practitioner during the management of this patient. I discussed the case with the advanced practitioner and agree with the findings and plan as documented in their note except as noted below. 57yF brought in by EMS for syncope and hypotension. The patient reports dizziness and lightheadedness for the past several days, reportedly had 2 syncopal episodes today while walking. She says that she hit the left side of her face on the ground during one of these episodes. She was found to be hypotensive on EMS arrival (systolic in 60s), received 1500 cc NS bolus prior to arrival and had a systolic in the mid 70s on her arrival to the ED. She currently complains of left facial pain and lower abdominal pain. On exam, she has mild erythema to the left side of her face with no bony step-off, heart and lung exams wnl, abdomen soft with minimal suprapubic tenderness, no guarding or rebound, GCS 15. She has been admitted previously for hypotension and bacteremia. Will obtain labs, CT scans, and give additional IV fluids. MDM Narrative Medical decision making narrative: The patient is noted to be hypotensive upon arrival. She received 1.5 L of normal saline via EMS. Additional liter normal saline bolus has been ordered. The patient was placed on ECG monitoring pulse oximetry. A 12-lead EKG was obtained revealing sinus rhythm with a rate of 78, QTC is 490, lab work, chest x-ray, CT abdomen pelvis, urinalysis, blood cultures have been ordered. The patient was given broad-spectrum antibiotics upon arrival. Lab work is been reviewed. The patient has an acute kidney injury with a GFR of 27, hypocalcemia with calcium level 7.1, lactic acid is elevated at 2.5, TSH is 0.286, free T4 has been added on. Alcohol level is 284. CT abdomen pelvis reveals no acute abnormalities. The patient's blood pressure has remained low, most recent blood pressure readings improved 87/50. No obvious evidence of infectious process at this time. Blood cultures pending. The patient will be admitted for further evaluation and treatment. Medical Screen Exam Complete: Yes Emergency Medical Condition: Yes Differential Diagnosis Differential Diagnosis: Sepsis, dehydration, electrolyte abnormality, arrhythmia , vertigo, intracranial hemorrhage Lab Data Result diagrams: 06/25/18 19:45 06/25/18 19:45 Lab Results 06/25/18 06/25/18 06/25/18 Range/Units 19:45 19:45 19:45 WBC 6.7 (4.0-11.0) th/mm3 RBC 2.99 L (4.00-5.30) mil/mm3 Hgb 11.2 L (11.6-15.3) gm/dL Hct 33.6 L (35.0-46.0) % MCV 112.2 H (80.0-100.0) fL MCH 37.6 H (27.0-34.0) pg MCHC 33.5 (32.0-36.0) % RDW 14.9 (11.6-17.2) % Plt Count 147 L (150-450) th/mm3 MPV 8.8 (7.0-11.0) fL Neut % (Auto) 76.9 H (16.0-70.0) % Lymph % (Auto) 15.7 (9.0-44.0) % [place] % (Auto) 6.0 (0.0-8.0) % Eos % (Auto) 1.1 (0.0-4.0) % Baso % (Auto) 0.3 (0.0-2.0) % Neut # (Auto) 5.2 (1.8-7.7) th/mm3 Lymph # (Auto) 1.1 (1.0-4.8) th/mm3 [place] # (Auto) 0.4 (0.0-0.9) th/mm3 Eos # (Auto) 0.1 (0.0-0.4) th/mm3 Baso # (Auto) 0.0 (0.0-0.2) th/mm3 WBC Differential . Differential Comment Auto diff final PT 9.7 L (9.8-11.6) sec INR 1.0 Ratio APTT 22.6 L (24.3-30.1) sec Sodium 135 L (136-145) meq/L Potassium 3.8 (3.5-5.1) meq/L Chloride 105 (98-107) meq/L Carbon Dioxide 17.7 L (21.0-32.0) meq/L Anion Gap 12 (5-15) meq/L BUN 31 H (7-18) mg/dL Creatinine 1.94 H (0.50-1.00) mg/dL Estimated GFR 27 L (>89) mL/min POC Glucose (68-110) mg/dl Random Glucose 56 L (74-106) mg/dL Lactic Acid (0.4-2.0) mmol/L Calcium 7.1 L* (8.5-10.1) mg/dL Prot Corrected Calcium 7.6 L (8.5-10.1) mg/dL Magnesium 1.6 (1.5-2.5) mg/dL Total Bilirubin 0.6 (0.2-1.0) mg/dL AST 66 H (15-37) U/L ALT 39 (10-53) U/L Alkaline Phosphatase 57 (45-117) U/L Ammonia (11-32) mcmol/L Total Creatine Kinase 169 (26-192) U/L Troponin I Less than 0.02 L (0.02-0.05) ng/mL Total Protein 6.2 L (6.4-8.2) g/dL Albumin 3.0 L (3.4-5.0) g/dL TSH 0.286 L (0.358-3.740) uIU/mL Free T4 0.75 L (0.76-1.46) ng/dL Urine Color (Yellw/Straw) Urine Clarity (Clear) Urine pH (5.0-8.5) Ur Specific [place] (1.002-1.035) Urine Protein (Neg-Trace) mg/dL Urine Glucose (UA) (Negative) mg/dL Urine Ketones (Negative) mg/dL Urine Occult Blood (Negative) Urine Nitrate (Negative) Urine Bilirubin (Negative) Urine Urobilinogen (Less than 2) mg/dL Ur Leukocyte Esterase (Negative) Urine RBC (0-3) /hpf Urine WBC (0-5) /hpf Ur Squamous Epith Cells (0-5) /hpf Urine Bacteria (None) /hpf Hyaline Casts (0-3) /lpf Granular Casts (None) /lpf Micro UA Comment Ur Microscopic Review Urine Culture Comments Serum Alcohol (0-5) mg/dL Blood Type Antibody Screen 06/25/18 06/25/18 06/25/18 Range/Units 19:45 19:45 19:45 WBC (4.0-11.0) th/mm3 RBC (4.00-5.30) mil/mm3 Hgb (11.6-15.3) gm/dL Hct (35.0-46.0) % MCV (80.0-100.0) fL MCH (27.0-34.0) pg MCHC (32.0-36.0) % RDW (11.6-17.2) % Plt Count (150-450) th/mm3 MPV (7.0-11.0) fL Neut % (Auto) (16.0-70.0) % Lymph % (Auto) (9.0-44.0) % [place] % (Auto) (0.0-8.0) % Eos % (Auto) (0.0-4.0) % Baso % (Auto) (0.0-2.0) % Neut # (Auto) (1.8-7.7) th/mm3 Lymph # (Auto) (1.0-4.8) th/mm3 [place] # (Auto) (0.0-0.9) th/mm3 Eos # (Auto) (0.0-0.4) th/mm3 Baso # (Auto) (0.0-0.2) th/mm3 WBC Differential Differential Comment PT (9.8-11.6) sec INR Ratio APTT (24.3-30.1) sec Sodium (136-145) meq/L Potassium (3.5-5.1) meq/L Chloride (98-107) meq/L Carbon Dioxide (21.0-32.0) meq/L Anion Gap (5-15) meq/L BUN (7-18) mg/dL Creatinine (0.50-1.00) mg/dL Estimated GFR (>89) mL/min POC Glucose (68-110) mg/dl Random Glucose (74-106) mg/dL Lactic Acid 2.5 H (0.4-2.0) mmol/L Calcium (8.5-10.1) mg/dL Prot Corrected Calcium (8.5-10.1) mg/dL Magnesium (1.5-2.5) mg/dL Total Bilirubin (0.2-1.0) mg/dL AST (15-37) U/L ALT (10-53) U/L Alkaline Phosphatase (45-117) U/L Ammonia 25 (11-32) mcmol/L Total Creatine Kinase (26-192) U/L Troponin I (0.02-0.05) ng/mL Total Protein (6.4-8.2) g/dL Albumin (3.4-5.0) g/dL TSH (0.358-3.740) uIU/mL Free T4 (0.76-1.46) ng/dL Urine Color (Yellw/Straw) Urine Clarity (Clear) Urine pH (5.0-8.5) Ur Specific [place] (1.002-1.035) Urine Protein (Neg-Trace) mg/dL Urine Glucose (UA) (Negative) mg/dL Urine Ketones (Negative) mg/dL Urine Occult Blood (Negative) Urine Nitrate (Negative) Urine Bilirubin (Negative) Urine Urobilinogen (Less than 2) mg/dL Ur Leukocyte Esterase (Negative) Urine RBC (0-3) /hpf Urine WBC (0-5) /hpf Ur Squamous Epith Cells (0-5) /hpf Urine Bacteria (None) /hpf Hyaline Casts (0-3) /lpf Granular Casts (None) /lpf Micro UA Comment Ur Microscopic Review Urine Culture Comments Serum Alcohol (0-5) mg/dL Blood Type A Positive Antibody Screen Negative 06/25/18 06/25/18 06/25/18 Range/Units 19:45 19:45 19:58 WBC (4.0-11.0) th/mm3 RBC (4.00-5.30) mil/mm3 Hgb (11.6-15.3) gm/dL Hct (35.0-46.0) % MCV (80.0-100.0) fL MCH (27.0-34.0) pg MCHC (32.0-36.0) % RDW (11.6-17.2) % Plt Count (150-450) th/mm3 MPV (7.0-11.0) fL Neut % (Auto) (16.0-70.0) % Lymph % (Auto) (9.0-44.0) % [place] % (Auto) (0.0-8.0) % Eos % (Auto) (0.0-4.0) % Baso % (Auto) (0.0-2.0) % Neut # (Auto) (1.8-7.7) th/mm3 Lymph # (Auto) (1.0-4.8) th/mm3 [place] # (Auto) (0.0-0.9) th/mm3 Eos # (Auto) (0.0-0.4) th/mm3 Baso # (Auto) (0.0-0.2) th/mm3 WBC Differential Differential Comment PT (9.8-11.6) sec INR Ratio APTT (24.3-30.1) sec Sodium (136-145) meq/L Potassium (3.5-5.1) meq/L Chloride (98-107) meq/L Carbon Dioxide (21.0-32.0) meq/L Anion Gap (5-15) meq/L BUN (7-18) mg/dL Creatinine (0.50-1.00) mg/dL Estimated GFR (>89) mL/min POC Glucose 82 (68-110) mg/dl Random Glucose (74-106) mg/dL Lactic Acid (0.4-2.0) mmol/L Calcium (8.5-10.1) mg/dL Prot Corrected Calcium (8.5-10.1) mg/dL Magnesium (1.5-2.5) mg/dL Total Bilirubin (0.2-1.0) mg/dL AST (15-37) U/L ALT (10-53) U/L Alkaline Phosphatase (45-117) U/L Ammonia (11-32) mcmol/L Total Creatine Kinase (26-192) U/L Troponin I (0.02-0.05) ng/mL Total Protein (6.4-8.2) g/dL Albumin (3.4-5.0) g/dL TSH (0.358-3.740) uIU/mL Free T4 Cancelled (0.76-1.46) ng/dL Urine Color (Yellw/Straw) Urine Clarity (Clear) Urine pH (5.0-8.5) Ur Specific [place] (1.002-1.035) Urine Protein (Neg-Trace) mg/dL Urine Glucose (UA) (Negative) mg/dL Urine Ketones (Negative) mg/dL Urine Occult Blood (Negative) Urine Nitrate (Negative) Urine Bilirubin (Negative) Urine Urobilinogen (Less than 2) mg/dL Ur Leukocyte Esterase (Negative) Urine RBC (0-3) /hpf Urine WBC (0-5) /hpf Ur Squamous Epith Cells (0-5) /hpf Urine Bacteria (None) /hpf Hyaline Casts (0-3) /lpf Granular Casts (None) /lpf Micro UA Comment Ur Microscopic Review Urine Culture Comments Serum Alcohol 281 H (0-5) mg/dL Blood Type Antibody Screen 06/25/18 06/25/18 Range/Units 21:00 21:34 WBC (4.0-11.0) th/mm3 RBC (4.00-5.30) mil/mm3 Hgb (11.6-15.3) gm/dL Hct (35.0-46.0) % MCV (80.0-100.0) fL MCH (27.0-34.0) pg MCHC (32.0-36.0) % RDW (11.6-17.2) % Plt Count (150-450) th/mm3 MPV (7.0-11.0) fL Neut % (Auto) (16.0-70.0) % Lymph % (Auto) (9.0-44.0) % [place] % (Auto) (0.0-8.0) % Eos % (Auto) (0.0-4.0) % Baso % (Auto) (0.0-2.0) % Neut # (Auto) (1.8-7.7) th/mm3 Lymph # (Auto) (1.0-4.8) th/mm3 [place] # (Auto) (0.0-0.9) th/mm3 Eos # (Auto) (0.0-0.4) th/mm3 Baso # (Auto) (0.0-0.2) th/mm3 WBC Differential Differential Comment PT (9.8-11.6) sec INR Ratio APTT (24.3-30.1) sec Sodium (136-145) meq/L Potassium (3.5-5.1) meq/L Chloride (98-107) meq/L Carbon Dioxide (21.0-32.0) meq/L Anion Gap (5-15) meq/L BUN (7-18) mg/dL Creatinine (0.50-1.00) mg/dL Estimated GFR (>89) mL/min POC Glucose 123 H (68-110) mg/dl Random Glucose (74-106) mg/dL Lactic Acid (0.4-2.0) mmol/L Calcium (8.5-10.1) mg/dL Prot Corrected Calcium (8.5-10.1) mg/dL Magnesium (1.5-2.5) mg/dL Total Bilirubin (0.2-1.0) mg/dL AST (15-37) U/L ALT (10-53) U/L Alkaline Phosphatase (45-117) U/L Ammonia (11-32) mcmol/L Total Creatine Kinase (26-192) U/L Troponin I (0.02-0.05) ng/mL Total Protein (6.4-8.2) g/dL Albumin (3.4-5.0) g/dL TSH (0.358-3.740) uIU/mL Free T4 (0.76-1.46) ng/dL Urine Color Yellow (Yellw/Straw) Urine Clarity Cloudy H (Clear) Urine pH 5.0 (5.0-8.5) Ur Specific [place] 1.010 (1.002-1.035) Urine Protein 30 H (Neg-Trace) mg/dL Urine Glucose (UA) Negative (Negative) mg/dL Urine Ketones Trace H (Negative) mg/dL Urine Occult Blood Small H (Negative) Urine Nitrate Negative (Negative) Urine Bilirubin Negative (Negative) Urine Urobilinogen Less than 2 (Less than 2) mg/dL Ur Leukocyte Esterase Negative (Negative) Urine RBC 1 (0-3) /hpf Urine WBC 5 (0-5) /hpf Ur Squamous Epith Cells 12 (0-5) /hpf Urine Bacteria Few H (None) /hpf Hyaline Casts 14 (0-3) /lpf Granular Casts 5 (None) /lpf Micro UA Comment Culture not ind Ur Microscopic Review Not Reportable Urine Culture Comments Culture not ind Serum Alcohol (0-5) mg/dL Blood Type Antibody Screen Imaging Data Radiologist's impression: Chest X-Ray 06/25/18 19:37 CONCLUSION: 1. Hypoinflation with no acute cardiopulmonary process. 2. Stable degenerative spurring of the dorsal spine. Face CT 06/25/18 19:37 CONCLUSION: 1. No acute facial bone fractures. 2. Mild left maxillary sinus mucosal disease. 3. Bulky left carotid artery calcifications. Consider carotid ultrasound examination on an outpatient basis. Head CT 06/25/18 19:37 CONCLUSION: 1. No acute intracranial abnormality. . Abdomen/Pelvis CT 06/25/18 21:06 CONCLUSION: 1. No acute CT abnormality in the abdomen or pelvis. 2. Stable nonobstructing calyceal calculi in the inferior and superior poles of the left kidney. 3. Sigmoid diverticulosis without evidence for diverticulitis. 4. Prominent hepatic steatosis. 5. 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 6. Additional stable ancillary findings, as above. ECG Data Attestation: I personally reviewed and interpreted this ECG as follows: Interpretation: Rate: 78 BPM Rhythm: Sinus Moodus: Normal Intervals: Normal intervals, no blocks, QTc 490 ms Q waves: None T waves: Upright, no inversions ST segments: No elevations or depressions Impression: Non-specific EKG, prolonged QTc, no significant changes as compared to EKG from 01/13/2018. Discharge Plan Discharge Disposition Patient Disposition: 30 Still Patient Discharge Condition Condition: Stable Discharge Details Diagnosis: Hypotension, Hypocalcemia, Alcohol intoxication, Acute kidney injury, Acidosis , lactic Physicians Team ED Provider: Claudia Fishman ED Midlevel Provider: Mir Lopez Primary Care Provider: Primary Care Deandra Bob Attending Provider: Janak Ibrahim Status ED Status: Admitted Patient
[2018-06-25] MEDS ORDERED: Vancomycin Inj 1 GM/200 ML PIGGYBACK IV.SIG ONE (19:56)
[2018-06-25] MEDS ORDERED: Piperacil/Tazo 4.5 GM Premix 4.5 GM/100 ML BAG IV.SIG ONE (19:56)
--- NOTE | 2018-06-25 20:10 | XR ---
EXAM DATE: 06/25/2018 7:37 PM EDT AGE/SEX: 57 years / Female INDICATIONS: Short of breath. CLINICAL DATA: This is the patient's initial encounter. Patient reports that signs and symptoms have been present for 1 day and indicates a pain score of 0/10. MEDICAL/SURGICAL HISTORY: Chronic obstructive pulmonary disease. None. [place] [facility] [place]. . FINDINGS: A single AP view of the chest demonstrates the lungs to be symmetrically hypoaerated without evidence of mass, infiltrate or effusion. The cardiomediastinal contours are unremarkable. Osseous structur es are intact with degenerative spurring of the dorsal spine. CONCLUSION: 1. Hypoinflation with no acute cardiopulmonary process. 2. Stable degenerative spurring of the dorsal spine. Electronically signed by: Obie Krishnan MD 06/25/2018 8:08 PM EDT
[2018-06-25 20:21] LABS: Baso % (Auto) 0.3 % (0.0-2.0); Eos # (Auto) 0.1 th/mm3 (0.0-0.4); Eos % (Auto) 1.1 % (0.0-4.0); Hematocrit 33.6 % (35.0-46.0); Hemoglobin 11.2 gm/dL (11.6-15.3); Lymph # (Auto) 1.1 th/mm3 (1.0-4.8); Lymph % (Auto) 15.7 % (9.0-44.0); Mean Corpuscular HGB Conc 33.5 % (32.0-36.0); Mean Corpuscular Hemoglobin 37.6 pg (27.0-34.0); Mean Corpuscular Volume 112.2 fL (80.0-100.0); Mean Platelet Volume 8.8 fL (7.0-11.0); Mono # (Auto) 0.4 th/mm3 (0.0-0.9); Neut # (Auto) 5.2 th/mm3 (1.8-7.7); Neut % (Auto) 76.9 % (16.0-70.0); Platelet Count 147 th/mm3 (150-450); Red Blood Count 2.99 mil/mm3 (4.00-5.30); Red Cell Distribution Width 14.9 % (11.6-17.2); White Blood Count 6.7 th/mm3 (4.0-11.0)
[2018-06-25 20:35] LABS: Activated Partial Thrombo Time 22.6 sec (24.3-30.1); Prothrombin Time 9.7 sec (9.8-11.6)
[2018-06-25 20:44] LABS: Anion Gap 12 meq/L (5-15)
[2018-06-25 20:51] LABS: Alanine Aminotransferase 39 U/L (10-53); Alkaline Phosphatase 57 U/L (45-117); Aspartate Aminotransferase 66 U/L (15-37); Blood Urea Nitrogen 31 mg/dL (7-18); Calcium 7.1 mg/dL (8.5-10.1); Carbon Dioxide 17.7 meq/L (21.0-32.0); Chloride 105 meq/L (98-107); Creatine Kinase 169 U/L (26-192); Glomerular Filtration Rate 27 mL/min (>89); Glucose,Random 56 mg/dL (74-106); Magnesium 1.6 mg/dL (1.5-2.5); Potassium 3.8 meq/L (3.5-5.1); Sodium 135 meq/L (136-145); Thyroid Stimulating Hormone 0.286 uIU/mL (0.358-3.740); Total Protein 6.2 g/dL (6.4-8.2)
[2018-06-25] MEDS ORDERED: Magnesium Sulfate Inj 2 GM in Sodium Chlor 0.9% Inj 96 ML IV.SIG ONE (20:57)
[2018-06-25] MEDS ORDERED: Calcium Gluconate Inj 1 GM in Sodium Chlor 0.9% Inj 100 ML IV.SIG ONE (20:57)
[2018-06-25] MEDS ORDERED: Vancomycin Inj 1,000 MG in Sodium Chlor 0.9% Inj 250 ML IV.SIG ONE (21:00)
--- NOTE | 2018-06-25 21:32 | CT ---
EXAM DATE: 06/25/2018 7:47 PM EDT AGE/SEX: 57 years / Female INDICATIONS: Syncopal episode. CLINICAL DATA: This is the patient's initial encounter. Patient reports that signs and symptoms have been present for 1 day and indicates a pain score of 5/10. MEDICAL/SURGICAL HISTORY: Chronic obstructive pulmonary disease. Hypertension. None. RADIATION DOSE: 44.72 CTDI (mGy) COMPARISON: No prior exams available for comparison. TECHNIQUE: CT of the head without contrast. Using automated exposure control and adjustment of the mA and/or kV according to patient size, radiation dose was kept as low as reasonably achievable to ob tain optimal diagnostic quality images. DICOM format image data is available electronically for revi ew and comparison. FINDINGS: Cerebrum: Mild diffuse cerebral atrophy. The ventricles are normal for degree of atrophy. No evidenc e of midline shift, mass lesion, hemorrhage or acute infarction. No extraaxial fluid collections are seen. Posterior Fossa: The cerebellum and brainstem are intact. The 4th ventricle is midline. The cerebe llopontine angle is unremarkable. Extracranial: The visualized portion of the orbits is intact. Skull: The calvaria is intact. No evidence of skull fracture. CONCLUSION: 1. No acute intracranial abnormality. . Electronically signed by: Rio Conway MD 06/25/2018 9:31 PM EDT
--- NOTE | 2018-06-25 21:36 | CT ---
EXAM DATE: 06/25/2018 7:47 PM EDT AGE/SEX: 57 years / Female INDICATIONS: Syncopal episode. Hit left side of face. CLINICAL DATA: This is the patient's initial encounter. Patient reports that signs and symptoms have been present for 1 day and indicates a pain score of 5/10. MEDICAL/SURGICAL HISTORY: Chronic obstructive pulmonary disease. Hypertension. None. RADIATION DOSE: 60.98 CTDI (mGy) COMPARISON: No prior exams available for comparison. TECHNIQUE: Contiguous images in the axial and coronal planes were obtained using helical multirow de tector technique. Using automated exposure control and adjustment of the mA and/or kV according to p atient size, radiation dose was kept as low as reasonably achievable to obtain optimal diagnostic cheyanne lity images. DICOM format image data is available electronically for review and comparison. FINDINGS: Orbits: The orbital and infraorbital osseous structures are intact. The retroconal structures have a normal configuration. No radiopaque foreign bodies are seen. Nasal Bone: The nasal bone and maxillary spine are intact. Zygomatic Arches: Symmetric without evidence of fracture. Sinuses: The maxillary, ethmoid, and frontal sinuses are intact. No air-fluid levels seen. Mild muc operiosteal thickening in the inferior left maxillary sinus. Nasal Cavity: The nasal septum is intact and midline. The lacrimal ducts are intact. Soft Tissues: No radiopaque foreign bodies seen. No soft-tissue swelling is seen. Intracranial: No intracranial air seen. Cribriform Plate: Grossly intact. Vascular: Bulky calcified plaque in the left carotid artery. CONCLUSION: 1. No acute facial bone fractures. 2. Mild left maxillary sinus mucosal disease. 3. Bulky left carotid artery calcifications. Consider carotid ultrasound examination on an outpatien t basis. Electronically signed by: Rio Conway MD 06/25/2018 9:35 PM EDT
[2018-06-25 21:38] LABS: Bacteria,Urine Few /hpf; Bilirubin,Urine Negative (Negative); Clarity,Urine Cloudy (Clear); Color,Urine Yellow (Yellw/Straw); Glucose,Urine (UA) Negative (Negative); Hyaline Casts,Urine 14 /lpf (0-3); Leukocyte Esterase,Urine Negative (Negative); Nitrite,Urine Negative (Negative); Squamous Epithelial Cell,Urine 12 /hpf (0-5)
--- NOTE | 2018-06-25 21:42 | CT ---
EXAM DATE: 06/25/2018 9:09 PM EDT AGE/SEX: 57 years / Female INDICATIONS: Syncopal episode. Abdomen pain. CLINICAL DATA: This is the patient's initial encounter. Patient reports that signs and symptoms have been present for 1 day and indicates a pain score of 5/10. MEDICAL/SURGICAL HISTORY: Chronic obstructive pulmonary disease. Hypertension. None. RADIATION DOSE: 6.77 CTDI (mGy) COMPARISON: [facility] [place]OM[place] & PELVIS W/O CONTRAST, 01/13/2018. . TECHNIQUE: Multiple contiguous axial images were obtained through the abdomen. Images were obtained using multiple row detector helical technique. Using automated exposure control and adjustment of the mA and/or kV according to patient size, radiation dose was kept as low as reasonably achievable to o btain optimal diagnostic quality images. DICOM format image data is available electronically for rev iew and comparison. FINDINGS: LOWER LUNGS: Minimal scarring/atelectasis at the lung bases bilaterally. LIVER: Moderate diffusely decreased hepatic attenuation without significant volume loss. Increased d ensity in the gallbladder may reflect gallbladder sludge. SPLEEN: Homogeneous density without enlargement. PANCREAS: Grossly unremarkable. KIDNEYS: There are stable 5 mm and 2 mm calyceal calculi in the inferior pole of the left kidney. Th ere is also a punctate less than 2 mm calyceal calculus in the superior pole the left kidney. Kidneys otherwise symmetrical in size without evidence for significant hydronephrosis. ADRENAL GLANDS: Unremarkable. AORTA: Diffuse atherosclerotic calcifications without aneurysm. 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 BOWEL/MESENTERY: Mild sigmoid diverticulosis. Bowel otherwise appears grossly unremarkable. No evide nce for significant bowel obstruction. No free fluid or drainable fluid collections. No free air. ABDOMINAL WALL: Intact. BLADDER: Distended but otherwise unremarkable. REPRODUCTIVE: Calcified uterine leiomyoma. BONY STRUCTURES: Degenerative spondylosis of the lumbar spine. CONCLUSION: 1. No acute CT abnormality in the abdomen or pelvis. 2. Stable nonobstructing calyceal calculi in the inferior and superior poles of the left kidney. 3. Sigmoid diverticulosis without evidence for diverticulitis. 4. Prominent hepatic steatosis. 5. 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 6. Additional stable ancillary findings, as above. Electronically signed by: Rio Conway MD 06/25/2018 9:40 PM EDT
[2018-06-25 21:46] LABS: Free T4 (Free Thyroxine) 0.75 ng/dL (0.76-1.46)
--- NOTE | 2018-06-25 22:52 | P.HPCC ---
History of Present Illness Primary Care Physician: No Primary Care Physician History of Present Illness: 57-year-old female With history of alcoholism, hypertension, homelessness, presents via EMS for evaluation of syncope and low blood pressure. Patient reports that for the past few days she has been feeling dizzy and lightheaded. She reports that today she was walking and she passed out twice. She was found on the sidewalk by a passerby who called paramedics. Patient is currently complaining of dizziness and lightheadedness as well as left-sided facial pain where she hit the ground. On examination she is also complaining of lower abdominal pain. She denies neck or back pain, chest pain, shortness of breath, fevers, chills, cough, congestion, open wounds. She denies any history of IV drug use. She has no other complaints at this time. Her alcohol level in the emergency department is 281. Inpatient Certification: I certify that the inpatient services were ordered in accordance with Medicare regulations governing the order. This includes certification that hospital inpatient services are reasonable and necessary and in the case of services not specified as inpatient-only under 42 CFR 419.22(n), that they are appropriately provided as inpatient services in accordance to with the 2-midnight benchmark under 43 CFR 412.3(e) Review of Systems All other systems reviewed negative except as stated in HPI PMFSH - History History Provided By: Patient - Medical History Medical History: Medical History (Last Updated 06/25/18 @ 19:39 by Yolanda Bhagat) Anxiety Arthritis COPD (chronic obstructive pulmonary disease) HTN (hypertension) Hypercholesteremia - Tobacco History Second Hand Smoke Exposure: No Tobacco Use In Past 30 Days: Yes Smoking Status: Current every day smoker Tobacco Type: Cigarettes - Alcohol History How Often Do You Have a Drink Containing Alcohol: 2 to 3 times a week - Substance Use History Substance History: No History of Abuse - Travel History Recent Travel in the [place] Within the Last 8 Weeks: No Recent Travel Out of the Country Within the Last 8 Weeks: No - Immunization History Tetanus Immunization: Unsure Medications and Allergies Active Medications: Active Medications Sodium Chloride (Ns Inj) 1,000 mls @ 0 mls/hr IV.SIG BOLUS ALESSANDRO Last Infusion: 06/25/18 21:16 Dose: Infused Magnesium Sulfate 2 gm/ Sodium (Chloride) 100 mls @ 50 mls/hr IV.SIG ONCE ONE Stop: 06/25/18 22:56 Last Admin: 06/25/18 22:47 Dose: 50 mls/hr Sodium Chloride (Ns Flush) 2 ml IV.FLUSH PRN PRN PRN Reason: FLUSH AFTER USING IV ACCESS Current Medications Acetaminophen (Tylenol) 650 mg PO Q6H PRN PRN Reason: PAIN 1-5 AND/OR FEVER >101F Al Hydroxide/Mg Hydroxide (Milk Of Magnesia Liq) 30 ml PO Q12H PRN PRN Reason: Mild Constipation Albuterol (Duoneb Neb (Prn)) 1 ampul NEB Q2HR NEB PRN PRN Reason: WHEEZING Bisacodyl (Dulcolax Supp) 10 mg RECTAL DAILY PRN PRN Reason: SEVERE CONSITIPATION Chlorhexidine Gluconate (Chlorhexidine 2% Cloth) 3 pack TOPICAL DAILY@0400 ALESSANDRO Stop: 07/01/18 03:59 Chlorhexidine Gluconate (Chlorhexidine 2% Cloth) 3 pack TOPICAL DAILY@0400 PRN PRN Reason: Extra cloth needed Stop: 07/01/18 03:59 Famotidine (Pepcid Pf Inj) 10 mg IV.PUSH Q12HR [facility] Flumazenil (Romazecon Inj) 0.2 mg IV.PUSH Q1M PRN PRN Reason: OVERSEDATION Haloperidol Lactate (Haldol Inj) 1 mg IV.PUSH Q15M PRN PRN Reason: for severe agitation Heparin Sodium (Porcine) (Heparin Inj) 5,000 units SQ Q8H [facility] Albumin Human (Alburx 5% Inj) 500 mls @ 250 mls/hr IV.SIG Q6H [facility] Stop: 06/26/18 18:59 Last Infusion: 06/26/18 02:03 Dose: Infused Sodium Chloride (Ns Inj) 1,000 mls @ 184 mls/hr IV.CONT .Q5H27M [facility] Last Admin: 06/26/18 00:46 Dose: 184 mls/hr Lactulose (Lactulose Liq) 30 ml PO DAILY PRN PRN Reason: SEVERE CONSITIPATION Lorazepam (Ativan) 2 mg PO Q2H PRN PRN Reason: for CIWA 11-14 Lorazepam (Ativan Inj) 2 mg IV.PUSH Q2H PRN PRN Reason: for CIWA 11-14 Lorazepam (Ativan Inj) 2 mg IV.PUSH Q1H PRN PRN Reason: for CIWA 15-20 Lorazepam (Ativan Inj) 2 mg IV.PUSH Q15M PRN PRN Reason: for CIWA > 20 Lorazepam (Ativan Inj) 1 mg IV.PUSH Q4H PRN PRN Reason: for CIWA 8-10 Lorazepam (Ativan) 1 mg PO Q4H PRN PRN Reason: for CIWA 8-10 Morphine Sulfate (Morphine Inj) 2 mg IV.PUSH Q2H PRN PRN Reason: PAIN SCALE 6 TO 10 Last Admin: 06/26/18 03:08 Dose: 2 mg Ondansetron HCl (Zofran Inj) 4 mg IV.PUSH Q6H PRN PRN Reason: NAUSEA OR VOMITING Senna/Docusate Sodium (Colette-Colace) 1 tab PO BID ALESSANDRO Sennosides (Senokot) 17.2 mg PO Q12H PRN PRN Reason: Moderate Constipation Sodium Chloride (Ns Flush) 2 ml IV.FLUSH BID ALESSANDRO Sodium Chloride (Ns Flush) 2 ml IV.FLUSH PRN PRN PRN Reason: FLUSH AFTER USING IV ACCESS Sodium Chloride (Ns Flush) 2 ml IV.FLUSH BID ALESSANDRO Sodium Chloride (Ns Flush) 2 ml IV.FLUSH PRN PRN PRN Reason: FLUSH AFTER USING IV ACCESS Allergies Allergy/AdvReac Type Severity Reaction Status Date / Time sulfamethoxazole Allergy Severe rash Verified 01/18/18 11:01 trimethoprim Allergy Severe rash Verified 01/18/18 11:01 Home Medications Medication Instructions Recorded Confirmed Type celecoxib [Celebrex] 50 mg PO BID 06/25/18 06/25/18 History lisinopril 30 mg PO DAILY 06/25/18 06/25/18 History Results - Labs CBC & Chem 7: 06/25/18 19:45 06/25/18 19:45 Labs: Short CBC 06/25/18 Range/Units 19:45 WBC 6.7 (4.0-11.0) th/mm3 Hgb 11.2 L (11.6-15.3) gm/dL Hct 33.6 L (35.0-46.0) % Plt Count 147 L (150-450) th/mm3 BMP 06/25/18 19:45 Sodium 135 L Potassium 3.8 Chloride 105 Carbon Dioxide 17.7 L BUN 31 H Creatinine 1.94 H Calcium 7.1 L* Cardiac Enzymes 06/25/18 Range/Units 19:45 Total Creatine Kinase 169 (26-192) U/L Troponin I Less than 0.02 L (0.02-0.05) ng/mL Liver Function 06/25/18 Range/Units 19:45 Total Bilirubin 0.6 (0.2-1.0) mg/dL AST 66 H (15-37) U/L ALT 39 (10-53) U/L Alkaline Phosphatase 57 (45-117) U/L Albumin 3.0 L (3.4-5.0) g/dL Urine 06/25/18 Range/Units 21:00 Urine Color Yellow (Yellw/Straw) Urine Clarity Cloudy H (Clear) Urine pH 5.0 (5.0-8.5) Ur Specific [place] 1.010 (1.002-1.035) Urine Protein 30 H (Neg-Trace) mg/dL Urine Glucose (UA) Negative (Negative) mg/dL - Imaging Impressions Chest X-Ray 06/25/18 19:37 CONCLUSION: 1. Hypoinflation with no acute cardiopulmonary process. 2. Stable degenerative spurring of the dorsal spine. Face CT 06/25/18 19:37 CONCLUSION: 1. No acute facial bone fractures. 2. Mild left maxillary sinus mucosal disease. 3. Bulky left carotid artery calcifications. Consider carotid ultrasound examination on an outpatient basis. Head CT 06/25/18 19:37 CONCLUSION: 1. No acute intracranial abnormality. . Abdomen/Pelvis CT 06/25/18 21:06 CONCLUSION: 1. No acute CT abnormality in the abdomen or pelvis. 2. Stable nonobstructing calyceal calculi in the inferior and superior poles of the left kidney. 3. Sigmoid diverticulosis without evidence for diverticulitis. 4. Prominent hepatic steatosis. 5. 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 6. Additional stable ancillary findings, as above. Exam Vital signs: Vital Signs 06/25/18 19:32 06/25/18 19:49 06/25/18 19:55 Temperature 97.7 F Pulse Rate 75 72 Respiratory Rate 18 18 Blood Pressure 75/46 L 76/51 L Pulse Oximetry 100 100 100 06/25/18 19:59 06/25/18 21:39 06/25/18 21:51 Temperature Pulse Rate 76 73 Respiratory Rate 16 16 16 Blood Pressure 87/50 L Pulse Oximetry 100 Intake & Output 06/25/18 06/25/18 06/26/18 06:59 18:59 06:59 Intake Total 1460 / 1460 Balance 1460 / 1460 Weight 68.039 kg Intake: IV 1460 / 1460 Calcium Gluconate Inj 1 GM In 110 / 110 NS Inj 100 ML @ 110 mls/hr IV. SIG ONCE ONE Rx#:[id number] Zosyn 4.5 GM Premix 4.5 gm In 100 / 100 100 ml @ 200 mls/hr IV.SIG ONCE ONE Rx#:[id number] NS Inj 1,000 ML @ Wide Open IV. 1000 / 1000 SIG BOLUS ALESSANDRO Rx#:[id number] Vancomycin Inj 1,000 MG In NS 250 / 250 Inj 250 ML @ 250 mls/hr IV.SIG ONCE ONE Rx#:[id number] - Constitutional no acute distress - Routine HEENT Exam Head: Present: normocephalic, atraumatic Eye: Present: EOMI, PERRL, normal accommodation ENT: Present: mucous membranes dry - Routine Neck Exam Present: supple, full ROM. Absent: JVD, carotid bruit - Routine Respiratory Exam Present: rhonchi. Absent: accessory muscle use, stridor, wheezes, crackles - Routine Cardiovascular Exam Present: RRR, S1, S2. Absent: murmur, gallop - Routine Abdominal Exam Present: soft, normoactive bowel sounds. Absent: tenderness, distended - Routine Extremities Exam Absent: cyanosis, clubbing, edema - Routine Skin Exam Present: intact. Absent: cyanosis, erythema - Routine Neurological Exam Present: alert, altered mental status Septic Shock Reassessment Septic shock perfusion: reassessment completed Caprini VTE Risk Assessment Caprini VTE Risk Assessment: Moderate/High Risk (score >= 2) Caprini Risk Assessment Model: Point Value = 1 Point Value = 2 Point Value = 3 Point Value = 5 Age 41-60 Minor surgery BMI > 25 kg/m2 Swollen legs Varicose veins or History of unexplained or recurrent spontaneous Oral contraceptives or hormone replacement Sepsis (< 1 month) Serious lung disease, including pneumonia (< 1 month) Abnormal pulmonary function Acute myocardial infarction Congestive heart failure (< 1 month) History of inflammatory bowel disease Medical patient at bed rest Age 61-74 Arthroscopic surgery Major open surgery (> 45 min) Laparoscopic surgery (> 45 min) Malignancy Confined to bed (> 72 hours) Immobilizing plaster cast Central venous access Age >= 75 History of VTE Family history of VTE Factor V Leiden Prothrombin [id number] Lupus anticoagulant Anticardiolipin antibodies Elevated serum homocysteine Heparin-induced thrombocytopenia Other congenital or acquired thrombophilia Stroke (< 1 month) Elective arthroplasty Hip, pelvis, or leg fracture Acute spinal cord injury (< 1 month) Prophylaxis Regimen: Total Risk Factor Score Risk Level Prophylaxis Regimen 0-1 Low Early ambulation 2 Moderate Order ONE of the following: *Sequential Compression Device (SCD) *Heparin 5000 units SQ BID 3-4 Higher Order ONE of the following medications: *Heparin 5000 units SQ TID *Enoxaparin/Lovenox 40 mg SQ daily (WT < 150 kg, CrCl > 30 mL/min) *Enoxaparin/Lovenox 30 mg SQ daily (WT < 150 kg, CrCl > 10-29 mL/min) *Enoxaparin/Lovenox 30 mg SQ BID (WT < 150 kg, CrCl > 30 mL/min) AND/OR *Sequential Compression Device (SCD) 5 or more Highest Order ONE of the following medications: *Heparin 5000 units SQ TID (Preferred with Epidurals) *Enoxaparin/Lovenox 40 mg SQ daily (WT < 150 kg, CrCl > 30 mL/min) *Enoxaparin/Lovenox 30 mg SQ daily (WT < 150 kg, CrCl > 10-29 mL/min) *Enoxaparin/Lovenox 30 mg SQ BID (WT < 150 kg, CrCl > 30 mL/min) AND *Sequential Compression Device (SCD) Assessment and Plan - Assessment and Plan Plan: Altered mental status Syncope -Alcohol intoxication -Dehydration -Aggressive IV fluid resuscitation -Neuro checks per unit protocol -Telemetry -CT head negative -Ultrasound of carotid Alcohol intoxication -CIWA medications and protocol to monitor for withdrawal Hypotension -Dehydration -Aggressive IV fluid resuscitation -IV albumin COPD -DuoNeb's as needed DVT GI prophylaxis -Teds SCDs -Subcu heparin -Pepcid 35 minutes of critical care
[2018-06-25] MEDS ORDERED: Sodium Chloride 0.9% 2 ML Flush PRN IV.FLUSH (22:57)
[2018-06-25] MEDS ORDERED: Bisacodyl 10 MG Supp RECTAL PRN (23:43)
[2018-06-25] MEDS ORDERED: Acetaminophen 325 MG Tablet PO PRN (23:43)
[2018-06-26] MEDS: Albumin Human 5% Inj 500 ML IV.SIG SCH ×4 (00:03→17:28)
[2018-06-26] MEDS: Sod Chloride 0.9% Inj 1,000 ML IV.CONT SCH ×2 (00:46→06:19)
[2018-06-26] MEDS: Morphine Sulfate Inj 2 MG/ML Vial IV.PUSH PRN ×3 (03:08→20:20)
[2018-06-26 04:00] LABS: Baso % (Auto) 0.3 % (0.0-2.0); Eos # (Auto) 0.1 th/mm3 (0.0-0.4); Hematocrit 29.2 % (35.0-46.0); Hemoglobin 10.1 gm/dL (11.6-15.3); Lymph # (Auto) 1.5 th/mm3 (1.0-4.8); Lymph % (Auto) 24.3 % (9.0-44.0); Mean Corpuscular HGB Conc 34.7 % (32.0-36.0); Mean Corpuscular Hemoglobin 38.8 pg (27.0-34.0); Mean Corpuscular Volume 112.1 fL (80.0-100.0); Mean Platelet Volume 9.8 fL (7.0-11.0); Mono # (Auto) 0.4 th/mm3 (0.0-0.9); Mono % (Auto) 7.1 % (0.0-8.0); Neut # (Auto) 4.2 th/mm3 (1.8-7.7); Neut % (Auto) 67.3 % (16.0-70.0); Platelet Count 136 th/mm3 (150-450); Red Blood Count 2.61 mil/mm3 (4.00-5.30); Red Cell Distribution Width 14.7 % (11.6-17.2); White Blood Count 6.2 th/mm3 (4.0-11.0)
[2018-06-26] MEDS ORDERED: Chlorhexidine Gluconate 2% 1 Pack (2 Cloths) TOPICAL PRN (04:00)
[2018-06-26] MEDS: Chlorhexidine Gluconate 2% 1 Pack (2 Cloths) TOPICAL SCH (04:00)
[2018-06-26 04:11] LABS: Activated Partial Thrombo Time 22.4 sec (24.3-30.1); Prothrombin Time 9.8 sec (9.8-11.6)
[2018-06-26] MEDS ORDERED: Haloperidol Inj 5 MG/ML Ampul IV.PUSH PRN (04:29)
[2018-06-26] MEDS ORDERED: LORazepam 1 MG Tablet PO PRN (04:29)
[2018-06-26 05:15] LABS: Carbon Dioxide 20.5 meq/L (21.0-32.0); Potassium 3.7 meq/L (3.5-5.1)
[2018-06-26 05:16] LABS: Magnesium 2.1 mg/dL (1.5-2.5); Phosphorus 4.4 mg/dL (2.5-4.9); Troponin I 0.02 ng/mL (0.02-0.05)
[2018-06-26 05:17] LABS: Albumin 3.6 g/dL (3.4-5.0)
[2018-06-26 05:20] LABS: Calcium 7.3 mg/dL (8.5-10.1)
[2018-06-26 05:21] LABS: Total Protein 6.6 g/dL (6.4-8.2)
[2018-06-26] MEDS ORDERED: Dextrose 50% in Water Syringe 50 ML ONE (05:23)
[2018-06-26] MEDS: Heparin - SQ 10,000 UNITS/ML Vial SQ SCH ×3 (05:25→21:04)
[2018-06-26] MEDS ORDERED: Dextrose 50% in Water 50 ML Vial IV.PUSH PRN (05:27)
[2018-06-26 05:33] LABS: Platelet Morphology Normal (Normal)
[2018-06-26 05:43] LABS: Ovalocytes 1+; Pappenheimer Bodies Present
[2018-06-26] MEDS: Senna/Docusate Sodium 8.6/50 MG Tablet PO SCH ×2 (08:29→20:20)
[2018-06-26] MEDS: Dextrose 5%/Lactated Ringer's 1,000 ML IV.CONT SCH ×2 (08:49→15:30)
[2018-06-26] MEDS ORDERED: Sodium Chloride 0.9% 2 ML Flush BID IV.FLUSH SCH (09:00)
[2018-06-26] MEDS ORDERED: Famotidine PF Inj 20 MG/2 ML Vial IV.PUSH SCH (09:00)
[2018-06-26] MEDS: Thiamine Inj 100 MG in Sodium Chlor 0.9% Inj 100 ML IV.SIG SCH (09:12)
--- NOTE | 2018-06-26 11:12 | US ---
EXAM DATE: 06/26/2018 12:00 AM EDT AGE/SEX: 57 years / Female INDICATIONS: Syncope. CLINICAL DATA: This is the patient's initial encounter. Patient reports that signs and symptoms have been present for 3 days and indicates a pain score of 0/10. MEDICAL/SURGICAL HISTORY: . Anxiety. Arthritis. COPD. HTN. Hypercholesterol. . COMPARISON: No prior exams available for comparison. VELOCITY PARAMETERS: ICA/CCA Ratio: Right 6.5 , Left 1.5 ICA: Right 531 cm/sec, Left 167 cm/sec CCA: Right 82 cm/sec, Left 110 cm/sec ECA: Right 358 cm/sec, Left 278 cm/sec Vertebral: Right 120 cm/sec antegrade, Left 70 cm/sec antegrade FINDINGS: Right Carotid: Extensive atherosclerotic plaquing with high-grade stenosis visually nonhemodynamical ly with turbulent flow distal to stenosis.The waveforms are within normal limits. Left Carotid: Moderate atherosclerotic plaquing without any hemodynamically significant stenosis. The waveforms are within normal limits. Other: None. CONCLUSION: 1. Right Internal Carotid Artery: High-grade stenosis. 2. Left Internal Carotid Artery: Moderate atherosclerotic plaquing without hemodynamically significa nt stenosis. Electronically signed by: Carlton Miranda MD 06/26/2018 11:11 AM EDT
--- NOTE | 2018-06-26 13:17 | P.PNCC ---
Subjective Subjective Remarks/Hospital Course: 06/25: 57-year-old female With history of alcoholism, hypertension, homelessness , presents via EMS for evaluation of syncope and low blood pressure. Patient reports that for the past few days she has been feeling dizzy and lightheaded. She reports that today she was walking and she passed out twice. She was found on the sidewalk by a passerby who called paramedics. Patient is currently complaining of dizziness and lightheadedness as well as left-sided facial pain where she hit the ground. On examination she is also complaining of lower abdominal pain. She denies neck or back pain, chest pain, shortness of breath, fevers, chills, cough, congestion, open wounds. She denies any history of IV drug use. She has no other complaints at this time. Her alcohol level in the emergency department is 281. 06/26: Resting comfortably. Looks dry. No she is in the hospital. States that she is homeless. Hypoglycemia earlier this morning. Denies any chest pain or shortness of breath. States that she was passing out before she was brought to the hospital and that she had not had anything to eat for 2 days. Objective Vital Signs / I&O: Vital Signs 06/25/18 19:32 06/25/18 19:49 06/25/18 19:55 Temperature 97.7 F Pulse Rate 75 72 Respiratory Rate 18 18 Blood Pressure 75/46 L 76/51 L Pulse Oximetry 100 100 100 06/25/18 19:59 06/25/18 21:39 06/25/18 21:51 Temperature Pulse Rate 76 73 Respiratory Rate 16 16 16 Blood Pressure 87/50 L Pulse Oximetry 100 06/26/18 00:20 06/26/18 00:30 06/26/18 01:00 Temperature 97.5 F L Pulse Rate 81 72 74 Respiratory Rate 16 12 16 Blood Pressure 75/48 L 88/53 L 93/52 L Pulse Oximetry 100 100 100 06/26/18 02:00 06/26/18 03:00 06/26/18 03:48 Temperature Pulse Rate 77 78 Respiratory Rate 23 17 Blood Pressure 97/52 L 104/57 L Pulse Oximetry 99 98 99 06/26/18 04:00 06/26/18 05:00 06/26/18 06:00 Temperature 98.0 F Pulse Rate 71 73 74 Respiratory Rate 14 13 21 Blood Pressure 88/54 L 91/57 L 121/62 Pulse Oximetry 97 100 98 06/26/18 08:00 06/26/18 08:16 06/26/18 09:00 Temperature Pulse Rate 78 79 Respiratory Rate Blood Pressure Pulse Oximetry 98 Intake & Output 06/25/18 06/26/18 06/26/18 18:59 06:59 18:59 Intake Total 2960 / 2960 500 / 500 Output Total 425 / 425 Balance 2535 / 2535 500 / 500 Weight 64 kg Intake: IV 2960 / 2960 500 / 500 NS Inj 1,000 ML @ 184 mls/hr IV 1000 / 1000 .CONT .Q5H27M [facility] Rx#:[id number] Alburx 5% Inj 500 ML @ 250 mls/ 500 / 500 500 / 500 hr IV.SIG Q6H [facility] Rx#:[id number] Calcium Gluconate Inj 1 GM In 110 / 110 NS Inj 100 ML @ 110 mls/hr IV. SIG ONCE ONE Rx#:[id number] Zosyn 4.5 GM Premix 4.5 gm In 100 / 100 100 ml @ 200 mls/hr IV.SIG ONCE ONE Rx#:[id number] NS Inj 1,000 ML @ Wide Open IV. 1000 / 1000 SIG BOLUS [facility] Rx#:[id number] Vancomycin Inj 1,000 MG In NS 250 / 250 Inj 250 ML @ 250 mls/hr IV.SIG ONCE ONE Rx#:[id number] Oral 0 / 0 Output: Urine 425 / 425 Other: Date of Last Bowel Movement 06/25/18 06/25/18 # Bowel Movements 0 Weight On Admission 64 kg Result Diagrams: 06/26/18 03:41 06/26/18 03:41 Objective Remarks: - Constitutional no acute distress - Routine HEENT Exam Head: Present: normocephalic, atraumatic Eye: Present: EOMI, PERRL, normal accommodation ENT: Present: mucous membranes dry - Routine Neck Exam Present: supple, full ROM. Absent: JVD, carotid bruit - Routine Respiratory Exam Present: rhonchi. Absent: accessory muscle use, stridor, wheezes, crackles - Routine Cardiovascular Exam Present: RRR, S1, S2. Absent: murmur, gallop - Routine Abdominal Exam Present: soft, normoactive bowel sounds. Absent: tenderness, distended - Routine Extremities Exam Absent: cyanosis, clubbing, edema - Routine Skin Exam Present: intact. Absent: cyanosis, erythema - Routine Neurological Exam Present: Awake, alert, no she is in the hospital. Knows it is June 2018. Moving all 4 extremities, grossly nonfocal Assessment and Plan - Assessment and Plan Plan: Altered mental status Syncope -Alcohol intoxication -Dehydration -Aggressive IV fluid resuscitation -Neuro checks per unit protocol -Telemetry -CT head negative -Ultrasound of carotid Alcohol intoxication -[facility] medications and protocol to monitor for withdrawal Hypotension -Dehydration -Aggressive IV fluid resuscitation -IV albumin COPD -DuoNeb's as needed DVT GI prophylaxis -Teds SCDs -Subcu heparin -Pepcid 35 minutes of critical care
--- NOTE | 2018-06-26 18:23 | P.PN ---
Subjective Interval history: awake and alert no complains motivated with alcohol cessation Physical Exam Vital signs: Vital Signs 06/25/18 19:32 06/25/18 19:49 06/25/18 19:55 Temperature 97.7 F Pulse Rate 75 72 Respiratory Rate 18 18 Blood Pressure 75/46 L 76/51 L Pulse Oximetry 100 100 100 06/25/18 19:59 06/25/18 21:39 06/25/18 21:51 Temperature Pulse Rate 76 73 Respiratory Rate 16 16 16 Blood Pressure 87/50 L Pulse Oximetry 100 06/26/18 00:20 06/26/18 00:30 06/26/18 01:00 Temperature 97.5 F L Pulse Rate 81 72 74 Respiratory Rate 16 12 16 Blood Pressure 75/48 L 88/53 L 93/52 L Pulse Oximetry 100 100 100 06/26/18 02:00 06/26/18 03:00 06/26/18 03:48 Temperature Pulse Rate 77 78 Respiratory Rate 23 17 Blood Pressure 97/52 L 104/57 L Pulse Oximetry 99 98 99 06/26/18 04:00 06/26/18 05:00 06/26/18 06:00 Temperature 98.0 F Pulse Rate 71 73 74 Respiratory Rate 14 13 21 Blood Pressure 88/54 L 91/57 L 121/62 Pulse Oximetry 97 100 98 06/26/18 07:00 06/26/18 08:00 06/26/18 08:16 Temperature Pulse Rate 70 75 Respiratory Rate 17 17 Blood Pressure 116/56 L 140/65 Pulse Oximetry 98 97 98 06/26/18 09:00 06/26/18 10:00 06/26/18 11:00 Temperature Pulse Rate 78 84 80 Respiratory Rate 18 17 19 Blood Pressure 140/65 140/65 129/60 Pulse Oximetry 95 98 97 06/26/18 12:00 06/26/18 13:00 06/26/18 14:00 Temperature 98.2 F Pulse Rate 85 86 84 Respiratory Rate 18 17 18 Blood Pressure 113/62 116/63 126/69 Pulse Oximetry 99 100 100 06/26/18 15:00 06/26/18 16:00 06/26/18 17:00 Temperature 98.3 F Pulse Rate 85 80 78 Respiratory Rate 18 17 18 Blood Pressure 129/73 155/81 H 146/71 H Pulse Oximetry 100 100 94 L Intake & Output 06/25/18 06/26/18 06/26/18 18:59 06:59 18:59 Intake Total 2960 / 2960 1999 Output Total 425 / 425 Balance 2535 / 2535 1999 Weight 64 kg Intake: IV 2960 / 2960 1999 D5W/LR Inj 1,000 ML @ 150 mls/ 1000 / 1000 hr IV.CONT .Q6H40M [facility] Rx#: [id number] NS Inj 1,000 ML @ 184 mls/hr IV 1000 / 1000 .CONT .Q5H27M [facility] Rx#:[id number] Alburx 5% Inj 500 ML @ 250 mls/ 500 / 500 1000 / 1000 hr IV.SIG Q6H [facility] Rx#:[id number] Calcium Gluconate Inj 1 GM In 110 / 110 NS Inj 100 ML @ 110 mls/hr IV. SIG ONCE ONE Rx#:[id number] Zosyn 4.5 GM Premix 4.5 gm In 100 / 100 100 ml @ 200 mls/hr IV.SIG ONCE ONE Rx#:[id number] NS Inj 1,000 ML @ Wide Open IV. 1000 / 1000 SIG BOLUS [facility] Rx#:[id number] Vancomycin Inj 1,000 MG In NS 250 / 250 Inj 250 ML @ 250 mls/hr IV.SIG ONCE ONE Rx#:[id number] Oral 0 / 0 Output: Urine 425 / 425 Other: Date of Last Bowel Movement 06/25/18 06/25/18 # Bowel Movements 0 Weight On Admission 64 kg Narrative: awake and alert no distress anciteric no nuchal rigidity lungs- no rales regular rhythm abdomen soft, nontender extremiteis no edema neuro exam- non focal Results - Labs CBC & Chem 7: 06/27/18 04:06 06/27/18 04:06 Laboratory Results - last 24 hr 06/25/18 06/25/18 06/25/18 19:45 19:45 19:45 WBC 6.7 RBC 2.99 L Hgb 11.2 L Hct 33.6 L MCV 112.2 H MCH 37.6 H MCHC 33.5 RDW 14.9 Plt Count 147 L MPV 8.8 Prelim Diff (Auto) Neut % (Auto) 76.9 H Lymph % (Auto) 15.7 [place] % (Auto) 6.0 Eos % (Auto) 1.1 Baso % (Auto) 0.3 Neut # (Auto) 5.2 Lymph # (Auto) 1.1 [place] # (Auto) 0.4 Eos # (Auto) 0.1 Baso # (Auto) 0.0 WBC Differential . Diff Scan Differential Comment Auto diff final Platelet Estimate Platelet Morphology Pappenheimer Bodies Ovalocytes PT 9.7 L INR 1.0 APTT 22.6 L Sodium 135 L Potassium 3.8 Chloride 105 Carbon Dioxide 17.7 L Anion Gap 12 BUN 31 H Creatinine 1.94 H Estimated GFR 27 L POC Glucose Random Glucose 56 L Lactic Acid Calcium 7.1 L* Prot Corrected Calcium 7.6 L Phosphorus Magnesium 1.6 Total Bilirubin 0.6 AST 66 H ALT 39 Alkaline Phosphatase 57 Ammonia Total Creatine Kinase 169 Troponin I Less than 0.02 L Total Protein 6.2 L Albumin 3.0 L TSH 0.286 L Free T4 0.75 L Urine Color Urine Clarity Urine pH Ur Specific [place] Urine Protein Urine Glucose (UA) Urine Ketones Urine Occult Blood Urine Nitrate Urine Bilirubin Urine Urobilinogen Ur Leukocyte Esterase Urine RBC Urine WBC Ur Squamous Epith Cells Urine Bacteria Hyaline Casts Granular Casts Micro UA Comment Ur Microscopic Review Urine Culture Comments Nasal Screen MRSA (PCR) Serum Alcohol Blood Type Antibody Screen 06/25/18 06/25/18 06/25/18 19:45 19:45 19:45 WBC RBC Hgb Hct MCV MCH MCHC RDW Plt Count MPV Prelim Diff (Auto) Neut % (Auto) Lymph % (Auto) [place] % (Auto) Eos % (Auto) Baso % (Auto) Neut # (Auto) Lymph # (Auto) [place] # (Auto) Eos # (Auto) Baso # (Auto) WBC Differential Diff Scan Differential Comment Platelet Estimate Platelet Morphology Pappenheimer Bodies Ovalocytes PT INR APTT Sodium Potassium Chloride Carbon Dioxide Anion Gap BUN Creatinine Estimated GFR POC Glucose Random Glucose Lactic Acid 2.5 H Calcium Prot Corrected Calcium Phosphorus Magnesium Total Bilirubin AST ALT Alkaline Phosphatase Ammonia 25 Total Creatine Kinase Troponin I Total Protein Albumin TSH Free T4 Urine Color Urine Clarity Urine pH Ur Specific [place] Urine Protein Urine Glucose (UA) Urine Ketones Urine Occult Blood Urine Nitrate Urine Bilirubin Urine Urobilinogen Ur Leukocyte Esterase Urine RBC Urine WBC Ur Squamous Epith Cells Urine Bacteria Hyaline Casts Granular Casts Micro UA Comment Ur Microscopic Review Urine Culture Comments Nasal Screen MRSA (PCR) Serum Alcohol Blood Type A Positive Antibody Screen Negative 06/25/18 06/25/1806/25/18 19:45 19:45 19:58 WBC RBC Hgb Hct MCV MCH MCHC RDW Plt Count MPV Prelim Diff (Auto) Neut % (Auto) Lymph % (Auto) [place] % (Auto) Eos % (Auto) Baso % (Auto) Neut # (Auto) Lymph # (Auto) [place] # (Auto) Eos # (Auto) Baso # (Auto) WBC Differential Diff Scan Differential Comment Platelet Estimate Platelet Morphology Pappenheimer Bodies Ovalocytes PT INR APTT Sodium Potassium Chloride Carbon Dioxide Anion Gap BUN Creatinine Estimated GFR POC Glucose 82 Random Glucose Lactic Acid Calcium Prot Corrected Calcium Phosphorus Magnesium Total Bilirubin AST ALT Alkaline Phosphatase Ammonia Total Creatine Kinase Troponin I Total Protein Albumin TSH Free T4 Cancelled Urine Color Urine Clarity Urine pH Ur Specific [place] Urine Protein Urine Glucose (UA) Urine Ketones Urine Occult Blood Urine Nitrate Urine Bilirubin Urine Urobilinogen Ur Leukocyte Esterase Urine RBC Urine WBC Ur Squamous Epith Cells Urine Bacteria Hyaline Casts Granular Casts Micro UA Comment Ur Microscopic Review Urine Culture Comments Nasal Screen MRSA (PCR) Serum Alcohol 281 H Blood Type Antibody Screen 06/25/18 06/25/18 06/25/18 21:00 21:34 22:37 WBC RBC Hgb Hct MCV MCH MCHC RDW Plt Count MPV Prelim Diff (Auto) Neut % (Auto) Lymph % (Auto) [place] % (Auto) Eos % (Auto) Baso % (Auto) Neut # (Auto) Lymph # (Auto) [place] # (Auto) Eos # (Auto) Baso # (Auto) WBC Differential Diff Scan Differential Comment Platelet Estimate Platelet Morphology Pappenheimer Bodies Ovalocytes PT INR APTT Sodium Potassium Chloride Carbon Dioxide Anion Gap BUN Creatinine Estimated GFR POC Glucose 123 H Random Glucose Lactic Acid 2.2 H Calcium Prot Corrected Calcium Phosphorus Magnesium Total Bilirubin AST ALT Alkaline Phosphatase Ammonia Total Creatine Kinase Troponin I Total Protein Albumin TSH Free T4 Urine Color Yellow Urine Clarity Cloudy H Urine pH 5.0 Ur Specific [place] 1.010 Urine Protein 30 H Urine Glucose (UA) Negative Urine Ketones Trace H Urine Occult Blood Small H Urine Nitrate Negative Urine Bilirubin Negative Urine Urobilinogen Less than 2 Ur Leukocyte Esterase Negative Urine RBC 1 Urine WBC 5 Ur Squamous Epith Cells 12 Urine Bacteria Few H Hyaline Casts 14 Granular Casts 5 Micro UA Comment Culture not ind Ur Microscopic Review Not Reportable Urine Culture Comments Culture not ind Nasal Screen MRSA (PCR) Serum Alcohol Blood Type Antibody Screen 06/26/18 06/26/18 06/26/18 00:30 01:12 03:41 WBC 6.2 RBC 2.61 L Hgb 10.1 L Hct 29.2 L MCV 112.1 H MCH 38.8 H MCHC 34.7 RDW 14.7 Plt Count 136 L MPV 9.8 Prelim Diff (Auto) Slide review pending Neut % (Auto) 67.3 Lymph % (Auto) 24.3 [place] % (Auto) 7.1 Eos % (Auto) 1.0 Baso % (Auto) 0.3 Neut # (Auto) 4.2 Lymph # (Auto) 1.5 [place] # (Auto) 0.4 Eos # (Auto) 0.1 Baso # (Auto) 0.0 WBC Differential . Diff Scan Auto diff confirmed Differential Comment . Platelet Estimate Low L Platelet Morphology Normal Pappenheimer Bodies Present H Ovalocytes 1+ H PT INR APTT Sodium Potassium Chloride Carbon Dioxide Anion Gap BUN Creatinine Estimated GFR POC Glucose Random Glucose Lactic Acid Calcium Prot Corrected Calcium Phosphorus Magnesium Total Bilirubin AST ALT Alkaline Phosphatase Ammonia Total Creatine Kinase Troponin I Less than 0.02 L Total Protein Albumin TSH Free T4 Urine Color Urine Clarity Urine pH Ur Specific [place] Urine Protein Urine Glucose (UA) Urine Ketones Urine Occult Blood Urine Nitrate Urine Bilirubin Urine Urobilinogen Ur Leukocyte Esterase Urine RBC Urine WBC Ur Squamous Epith Cells Urine Bacteria Hyaline Casts Granular Casts Micro UA Comment Ur Microscopic Review Urine Culture Comments Nasal Screen MRSA (PCR) Not detected Serum Alcohol Blood Type Antibody Screen 06/26/18 06/26/18 06/26/18 03:41 03:41 03:41 WBC RBC Hgb Hct MCV MCH MCHC RDW Plt Count MPV Prelim Diff (Auto) Neut % (Auto) Lymph % (Auto) [place] % (Auto) Eos % (Auto) Baso % (Auto) Neut # (Auto) Lymph # (Auto) [place] # (Auto) Eos # (Auto) Baso # (Auto) WBC Differential Diff Scan Differential Comment Platelet Estimate Platelet Morphology Pappenheimer Bodies Ovalocytes PT 9.8 INR 1.0 APTT 22.4 L Sodium 142 Potassium 3.7 Chloride 107 Carbon Dioxide 20.5 L Anion Gap 15 BUN 26 H Creatinine 1.37 H Estimated GFR 40 L POC Glucose Random Glucose 46 L* Lactic Acid 1.9 Calcium 7.3 L* Prot Corrected Calcium 7.6 L Phosphorus 4.4 Magnesium 2.1 Total Bilirubin 0.6 AST 59 H ALT 43 Alkaline Phosphatase 53 Ammonia Total Creatine Kinase Troponin I 0.02 Total Protein 6.6 Albumin 3.6 D TSH Free T4 Urine Color Urine Clarity Urine pH Ur Specific [place] Urine Protein Urine Glucose (UA) Urine Ketones Urine Occult Blood Urine Nitrate Urine Bilirubin Urine Urobilinogen Ur Leukocyte Esterase Urine RBC Urine WBC Ur Squamous Epith Cells Urine Bacteria Hyaline Casts Granular Casts Micro UA Comment Ur Microscopic Review Urine Culture Comments Nasal Screen MRSA (PCR) Serum Alcohol Blood Type Antibody Screen 06/26/18 06/26/18 05:51 14:25 WBC RBC Hgb Hct MCV MCH MCHC RDW Plt Count MPV Prelim Diff (Auto) Neut % (Auto) Lymph % (Auto) [place] % (Auto) Eos % (Auto) Baso % (Auto) Neut # (Auto) Lymph # (Auto) [place] # (Auto) Eos # (Auto) Baso # (Auto) WBC Differential Diff Scan Differential Comment Platelet Estimate Platelet Morphology Pappenheimer Bodies Ovalocytes PT INR APTT Sodium Potassium Chloride Carbon Dioxide Anion Gap BUN Creatinine Estimated GFR POC Glucose 163 H 189 H Random Glucose Lactic Acid Calcium Prot Corrected Calcium Phosphorus Magnesium Total Bilirubin AST ALT Alkaline Phosphatase Ammonia Total Creatine Kinase Troponin I Total Protein Albumin TSH Free T4 Urine Color Urine Clarity Urine pH Ur Specific [place] Urine Protein Urine Glucose (UA) Urine Ketones Urine Occult Blood Urine Nitrate Urine Bilirubin Urine Urobilinogen Ur Leukocyte Esterase Urine RBC Urine WBC Ur Squamous Epith Cells Urine Bacteria Hyaline Casts Granular Casts Micro UA Comment Ur Microscopic Review Urine Culture Comments Nasal Screen MRSA (PCR) Serum Alcohol Blood Type Antibody Screen Microbiology 06/25/18 19:50 Blood - Peripheral Aerobic Blood Culture - Preliminary No growth in 1 day 06/25/18 19:50 Blood - Peripheral Anaerobic Blood Culture - Preliminary No growth in 1 day 06/25/18 19:45 Blood - Peripheral Aerobic Blood Culture - Preliminary No growth in 1 day 06/25/18 19:45 Blood - Peripheral Anaerobic Blood Culture - Preliminary No growth in 1 day - Imaging Impressions Chest X-Ray 06/25/18 19:37 CONCLUSION: 1. Hypoinflation with no acute cardiopulmonary process. 2. Stable degenerative spurring of the dorsal spine. Face CT 06/25/18 19:37 CONCLUSION: 1. No acute facial bone fractures. 2. Mild left maxillary sinus mucosal disease. 3. Bulky left carotid artery calcifications. Consider carotid ultrasound examination on an outpatient basis. Head CT 06/25/18 19:37 CONCLUSION: 1. No acute intracranial abnormality. . Abdomen/Pelvis CT 06/25/18 21:06 CONCLUSION: 1. No acute CT abnormality in the abdomen or pelvis. 2. Stable nonobstructing calyceal calculi in the inferior and superior poles of the left kidney. 3. Sigmoid diverticulosis without evidence for diverticulitis. 4. Prominent hepatic steatosis. 5. 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 6. Additional stable ancillary findings, as above. Carotid Doppler Study 06/26/18 00:00 CONCLUSION: 1. Right Internal Carotid Artery: High-grade stenosis. 2. Left Internal Carotid Artery: Moderate atherosclerotic plaquing without hemodynamically significant stenosis. Assessment and Plan - Plan 57 years old female transferred to medical servie Altered mental status- MS improved Syncope- likely due to ETOH intoxication "I had too much fun during the [place] fest" -Alcohol intoxication -Neuro checks per unit protocol -Telemetry -CT head negative -Ultrasound of carotid- negative Alcohol intoxication -[facility] medications and protocol to monitor for withdrawal- Right Internal carotid stenosis - on syncopal work up - on US- high grade stenosis - Vascular surgery consult for evaluation Hypotension- improved with hydration- - SBPs now 170 - IV fluid resuscitation- decrease IVF 70 cc/hr - S/P albumin infusion x 4 bottles - will disocntinue this albumin infusion order - patient has been sitting up and eating- ANALISA- r/o udnerlying CKI - good urine output- creatinine trending down from 1.9- donw to 1.3 - continue IVF - rate - decrease to at 70 cc/hr - BMP in am- if continues to improve heplock Hypoglycemia- - improved - not known diabetic - monitor COPD -DuoNeb's as needed DVT GI prophylaxis -Teds SCDs -Subcu heparin -PPI for GI prophylaxis PT eval and treat transfer to floor- awaiting floor bed
[2018-06-27] MEDS: Morphine Sulfate Inj 2 MG/ML Vial IV.PUSH PRN (03:07)
[2018-06-27] MEDS: Dextrose 5%/Lactated Ringer's 1,000 ML IV.CONT SCH ×2 (03:08→17:51)
[2018-06-27] MEDS: Chlorhexidine Gluconate 2% 1 Pack (2 Cloths) TOPICAL SCH (03:10)
[2018-06-27] MEDS: Heparin - SQ 10,000 UNITS/ML Vial SQ SCH ×2 (05:29→17:49)
[2018-06-27 05:40] LABS: Baso % (Auto) 0.4 % (0.0-2.0); Eos # (Auto) 0.1 th/mm3 (0.0-0.4); Eos % (Auto) 2.7 % (0.0-4.0); Hematocrit 27.1 % (35.0-46.0); Hemoglobin 9.5 gm/dL (11.6-15.3); Lymph # (Auto) 1.1 th/mm3 (1.0-4.8); Mean Corpuscular HGB Conc 34.9 % (32.0-36.0); Mean Corpuscular Volume 108.8 fL (80.0-100.0); Mean Platelet Volume 9.4 fL (7.0-11.0); Mono # (Auto) 0.4 th/mm3 (0.0-0.9); Mono % (Auto) 8.2 % (0.0-8.0); Neut % (Auto) 64.7 % (16.0-70.0); Platelet Count 117 th/mm3 (150-450); Red Blood Count 2.49 mil/mm3 (4.00-5.30); Red Cell Distribution Width 14.7 % (11.6-17.2); White Blood Count 4.6 th/mm3 (4.0-11.0)
[2018-06-27 06:08] LABS: Alanine Aminotransferase 37 U/L (10-53); Albumin 3.8 g/dL (3.4-5.0); Alkaline Phosphatase 45 U/L (45-117); Anion Gap 9 meq/L (5-15); Aspartate Aminotransferase 47 U/L (15-37); Blood Urea Nitrogen 14 mg/dL (7-18); Calcium 7.5 mg/dL (8.5-10.1); Carbon Dioxide 26.6 meq/L (21.0-32.0); Chloride 106 meq/L (98-107); Glomerular Filtration Rate 77 mL/min (>89); Glucose,Random 115 mg/dL (74-106); Sodium 142 meq/L (136-145); Total Protein 6.5 g/dL (6.4-8.2)
[2018-06-27] MEDS: Thiamine Inj 100 MG in Sodium Chlor 0.9% Inj 100 ML IV.SIG SCH (08:40)
[2018-06-27] MEDS: Senna/Docusate Sodium 8.6/50 MG Tablet PO SCH ×2 (08:40→20:39)
--- NOTE | 2018-06-27 09:22 | P.CONVS ---
History of Present Illness Service: Cardiovascular Consult date: 06/27/18 Reason for Consult: Bilateral carotid artery disease/High grade stenosis Primary Care Provider: No Primary Care Physician Chief Complaint: Dizziness and Syncopal episode History of Present Illness: 57/F with a PMH of HTN, COPD, Arthritis and TIA (December 2014) Pt reported she was found unconscious and sent to the ED for an evaluation It was discovered incidentally that the patent has bilateral carotid artery disease (Left- moderate and RIGHT- High grade) No previous hx of Pt denied and recent visual, speech or motor deficits however back in December of this year she stated she completely lost her vision to her Right eye for a duration of a few minutes. No other events reported. Review of Systems Constitutional: Denies chills, Denies fever(s) Eyes: Denies blurry vision, Denies change in vision, Denies loss of vision Cardiovascular: Reports fainting, Denies chest pain, Denies shortness of breath Neurologic: Denies abnormal speech, Denies abnormal walking PMFSH - History History Provided By: Patient - Medical History Medical History: Medical History (Last Reviewed 06/27/18 @ 09:13 by Krystin Forbes) Anxiety Arthritis COPD (chronic obstructive pulmonary disease) HTN (hypertension) Hypercholesteremia - Social History I have reviewed the patient's Social History: Yes - Tobacco History Second Hand Smoke Exposure: No Tobacco Use In Past 30 Days: Yes Smoking Status: Current every day smoker Tobacco Type: Cigarettes - Alcohol History How Often Do You Have a Drink Containing Alcohol: 2 to 3 times a week - Substance Use History Substance History: No History of Abuse - Travel History Recent Travel in the [place] Within the Last 8 Weeks: No Recent Travel Out of the Country Within the Last 8 Weeks: No - Immunization History Tetanus Immunization: Unsure Medications and Allergies Allergies Allergy/AdvReac Type Severity Reaction Status Date / Time sulfamethoxazole Allergy Severe rash Verified 01/18/18 11:01 trimethoprim Allergy Severe rash Verified 01/18/18 11:01 Home Medications Medication Instructions Recorded Confirmed Type celecoxib [Celebrex] 50 mg PO BID 06/25/18 06/25/18 History lisinopril 30 mg PO DAILY 06/25/18 06/25/18 History Active Medications: Active Medications Acetaminophen (Tylenol) 650 mg PO Q6H PRN PRN Reason: PAIN 1-5 AND/OR FEVER >101F Al Hydroxide/Mg Hydroxide (Milk Of Magnesia Liq) 30 ml PO Q12H PRN PRN Reason: Mild Constipation Albuterol (Duoneb Neb (Prn)) 1 ampul NEB Q2HR NEB PRN PRN Reason: WHEEZING Bisacodyl (Dulcolax Supp) 10 mg RECTAL DAILY PRN PRN Reason: SEVERE CONSITIPATION Chlorhexidine Gluconate (Chlorhexidine 2% Cloth) 3 pack TOPICAL DAILY@0400 [facility] Stop: 07/01/18 03:59 Last Admin: 06/27/18 03:10 Dose: 3 pack Chlorhexidine Gluconate (Chlorhexidine 2% Cloth) 3 pack TOPICAL DAILY@0400 PRN PRN Reason: Extra cloth needed Stop: 07/01/18 03:59 Dextrose (D50w Vial) 50 ml IV.PUSH UNSCH PRN PRN Reason: PER HYPOGLYCEMIA PROTOCOL Flumazenil (Romazecon Inj) 0.2 mg IV.PUSH Q1M PRN PRN Reason: OVERSEDATION Glucagon (Glucagon Inj) 1 mg OTHER PRN PRN PRN Reason: for Hypoglycemia Protocol Haloperidol Lactate (Haldol Inj) 1 mg IV.PUSH Q15M PRN PRN Reason: for severe agitation Heparin Sodium (Porcine) (Heparin Inj) 5,000 units SQ Q8H [facility] Last Admin: 06/27/18 05:29 Dose: 5,000 units Thiamine HCl 100 mg/ Sodium (Chloride) 101 mls @ 100 mls/hr IV.SIG DAILY [facility] Stop: 06/29/18 08:59 Last Admin: 06/27/18 08:40 Dose: 100 mls/hr Dextrose/Lactated Ringer's (D5w/Lr Inj) 1,000 mls @ 70 mls/hr IV.CONT .[id number] [facility] Last Admin: 06/27/18 03:08 Dose: 70 mls/hr Lactulose (Lactulose Liq) 30 ml PO DAILY PRN PRN Reason: SEVERE CONSITIPATION Lorazepam (Ativan) 2 mg PO Q2H PRN PRN Reason: for CIWA 11-14 Lorazepam (Ativan Inj) 2 mg IV.PUSH Q2H PRN PRN Reason: for CIWA 11-14 Lorazepam (Ativan Inj) 2 mg IV.PUSH Q1H PRN PRN Reason: for CIWA 15-20 Lorazepam (Ativan Inj) 2 mg IV.PUSH Q15M PRN PRN Reason: for CIWA > 20 Lorazepam (Ativan Inj) 1 mg IV.PUSH Q4H PRN PRN Reason: for CIWA 8-10 Lorazepam (Ativan) 1 mg PO Q4H PRN PRN Reason: for CIWA 8-10 Morphine Sulfate (Morphine Inj) 2 mg IV.PUSH Q2H PRN PRN Reason: PAIN SCALE 6 TO 10 Last Admin: 06/27/18 03:07 Dose: 2 mg Ondansetron HCl (Zofran Inj) 4 mg IV.PUSH Q6H PRN PRN Reason: NAUSEA OR VOMITING Senna/Docusate Sodium (Colette-Colace) 1 tab PO BID [facility] Last Admin: 06/27/18 08:40 Dose: 1 tab Sennosides (Senokot) 17.2 mg PO Q12H PRN PRN Reason: Moderate Constipation Sodium Chloride (Ns Flush) 2 ml IV.FLUSH BID [facility] Last Admin: 06/27/18 08:40 Dose: 2 ml Sodium Chloride (Ns Flush) 2 ml IV.FLUSH PRN PRN PRN Reason: FLUSH AFTER USING IV ACCESS Thiamine HCl (Vitamin B1) 100 mg PO DAILY [facility] Physical Exam Vital Signs / I&O: Vital Signs 06/26/18 10:00 06/26/18 11:00 06/26/18 12:00 Temperature 98.2 F Pulse Rate 84 80 85 Respiratory Rate 17 19 18 Blood Pressure 140/65 129/60 113/62 Pulse Oximetry 98 97 99 06/26/18 13:00 06/26/18 14:00 06/26/18 15:00 Temperature Pulse Rate 86 84 85 Respiratory Rate 17 18 18 Blood Pressure 116/63 126/69 129/73 Pulse Oximetry 100 100 100 06/26/18 16:00 06/26/18 17:00 06/26/18 18:00 Temperature 98.3 F Pulse Rate 80 78 81 Respiratory Rate 17 18 18 Blood Pressure 155/81 H 146/71 H 174/85 H Pulse Oximetry 100 94 L 93 L 06/26/18 19:00 06/26/18 20:00 06/26/18 20:05 Temperature 98.0 F Pulse Rate 84 76 Respiratory Rate 18 18 Blood Pressure 170/90 H 181/84 H Pulse Oximetry 95 99 99 06/26/18 20:22 06/26/18 21:00 06/26/18 22:00 Temperature Pulse Rate 75 76 Respiratory Rate 16 15 15 Blood Pressure 175/78 H 169/83 H Pulse Oximetry 97 97 06/26/18 23:00 06/27/18 00:00 06/27/18 01:00 Temperature 98.6 F Pulse Rate 73 68 68 Respiratory Rate 15 14 17 Blood Pressure 166/74 H 163/79 H 146/67 H Pulse Oximetry 97 97 97 06/27/18 02:00 06/27/18 03:00 06/27/18 04:00 Temperature 98.3 F Pulse Rate 71 74 70 Respiratory Rate 23 15 14 Blood Pressure 133/69 163/74 H 164/80 H Pulse Oximetry 96 97 98 06/27/18 05:00 06/27/18 06:00 06/27/18 07:44 Temperature Pulse Rate 68 66 Respiratory Rate 16 15 Blood Pressure 162/79 H 134/63 Pulse Oximetry 97 97 97 Intake & Output 06/26/18 06/27/18 06/27/18 18:59 06:59 18:59 Intake Total 2681 / 2681 240 / 240 Output Total 1200 / 1200 1575 / 1575 Balance 1481 / 1481 -1335 / -1335 Weight 67.5 kg Intake: IV 2201 / 2201 D5W/LR Inj 1,000 ML @ 150 mls/ 1000 / 1000 hr IV.CONT .Q6H40M [facility]O Rx#: [id number] Alburx 5% Inj 500 ML @ 250 mls/ 1100 / 1100 hr IV.SIG Q6H [facility] Rx#:[id number] Thiamine Inj 100 MG In NS Inj 101 / 101 100 ML @ 100 mls/hr IV.SIG DAILY [facility] Rx#:[id number] Oral 480 / 480 240 / 240 Output: Urine 1200 / 1200 1575 / 1575 Other: Date of Last Bowel Movement 06/25/18 06/25/18 # Bowel Movements 0 0 Neuro: A&Ox3 CN 2-12 intact Speech clear Neck: No JVD distention Heart: RRR + S1, S2 w/o M/G/R Lungs: Even and clear to auscultation Abdomen: S/NT Vascular: Palpable R/L 2+ radial pulses noted Extremities: UE 5/5 LE 5/5 All extremities warm with motor intact Laboratory Results - last 24 hr 10/23/18 10/23/18 10/23/18 14:25 18:35 23:28 WBC RBC Hgb Hct MCV MCH MCHC RDW Plt Count MPV Neut % (Auto) Lymph % (Auto) Bonner % (Auto) Eos % (Auto) Baso % (Auto) Neut # (Auto) Lymph # (Auto) Bonner # (Auto) Eos # (Auto) Baso # (Auto) WBC Differential Differential Comment Sodium Potassium Chloride Carbon Dioxide Anion Gap BUN Creatinine Estimated GFR POC Glucose 189 H 161 H 147 H Random Glucose Calcium Total Bilirubin AST ALT Alkaline Phosphatase Total Protein Albumin 06/27/18 06/27/18 06/27/18 04:06 04:06 05:13 WBC 4.6 RBC 2.49 L Hgb 9.5 L Hct 27.1 L MCV 108.8 H MCH 38.0 H MCHC 34.9 RDW 14.7 Plt Count 117 L MPV 9.4 Neut % (Auto) 64.7 Lymph % (Auto) 24.0 Bonner % (Auto) 8.2 H Eos % (Auto) 2.7 Baso % (Auto) 0.4 Neut # (Auto) 3.0 Lymph # (Auto) 1.1 Bonner # (Auto) 0.4 Eos # (Auto) 0.1 Baso # (Auto) 0.0 WBC Differential . Differential Comment Auto diff final Sodium 142 Potassium 3.0 L Chloride 106 Carbon Dioxide 26.6 Anion Gap 9 BUN 14 Creatinine 0.77 Estimated GFR 77 L POC Glucose 135 H Random Glucose 115 H Calcium 7.5 L Total Bilirubin 1.2 H AST 47 H ALT 37 Alkaline Phosphatase 45 Total Protein 6.5 Albumin 3.8 Microbiology 06/25/18 19:50 Aerobic Blood Culture - Preliminary Blood - Peripheral No growth in 1 day Anaerobic Blood Culture - Preliminary No growth in 1 day 06/25/18 19:45 Aerobic Blood Culture - Preliminary Blood - Peripheral No growth in 1 day Anaerobic Blood Culture - Preliminary No growth in 1 day Impressions Chest X-Ray 06/25/18 19:37 CONCLUSION: 1. Hypoinflation with no acute cardiopulmonary process. 2. Stable degenerative spurring of the dorsal spine. Face CT 06/25/18 19:37 CONCLUSION: 1. No acute facial bone fractures. 2. Mild left maxillary sinus mucosal disease. 3. Bulky left carotid artery calcifications. Consider carotid ultrasound examination on an outpatient basis. Head CT 06/25/18 19:37 CONCLUSION: 1. No acute intracranial abnormality. . Abdomen/Pelvis CT 06/25/18 21:06 CONCLUSION: 1. No acute CT abnormality in the abdomen or pelvis. 2. Stable nonobstructing calyceal calculi in the inferior and superior poles of the left kidney. 3. Sigmoid diverticulosis without evidence for diverticulitis. 4. Prominent hepatic steatosis. 5. 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 6. Additional stable ancillary findings, as above. Carotid Doppler Study 06/26/18 00:00 CONCLUSION: 1. Right Internal Carotid Artery: High-grade stenosis. 2. Left Internal Carotid Artery: Moderate atherosclerotic plaquing without hemodynamically significant stenosis. Assessment and Plan - Plan 57/F w/ incidental finding of B Carotid artery disease Reviewed U/S -Right Internal Carotid Artery: High-grade stenosis/Left Internal Carotid Artery: Moderate Pt neurologically intact w/o any deficits Plan Ordered a CTA for further diagnostic review Recommendations to follow once resulted Krystin Forbes NP [facility] [phone] - Attending Attestation I saw and examined the patient and agree with the nurse practitioner assessment and plan, date of service is 06/27/[address] angiography of the neck. Severe asymptomatic right carotid artery stenosis with occlusion of the right external carotid artery. We will start the patient on antiplatelet therapy and statin therapy. We will schedule the patient for right carotid artery endarterectomy on 2017 Thank you for allowing me to participate in this patient care Winston Stephen MD [facility] [place] [phone]
[2018-06-27] MEDS ORDERED: Potassium Chlor 20 mEq Premix 20 MEQ/100 ML PIGGYBACK IV.SIG ONE (10:00)
--- NOTE | 2018-06-27 14:19 | CT ---
EXAM DATE: 06/27/2018 11:37 AM EDT AGE/SEX: 57 years / Female INDICATIONS: Abnormal ultrasound, evaluate carotid stenosis. CLINICAL DATA: This is the patient's initial encounter. Patient reports that signs and symptoms have been present for 1 day and indicates a pain score of 0/10. MEDICAL/SURGICAL HISTORY: Chronic obstructive pulmonary disease. Hypertension. None. RADIATION DOSE: 26.32 CTDI (mGy) COMPARISON: [facility] [place] 12/18/2015. . TECHNIQUE: Volumetric scanning was performed using a multirow detector CT scanner during bolus infus ion of 60 ml Omnipaque 350 (iohexol) nonionic water-soluble contrast as a single exam dose. The da ta was postprocessed with a variety of visualization algorithms including full-volume maximum intensi ty projection, multiplanar sliding thin-slab reformation, curved-planar reformation, and surface-rend ering techniques. Using automated exposure control and adjustment of the mA and/or kV according to p atient size, radiation dose was kept as low as reasonably achievable to obtain optimal diagnostic cheyanne lity images. DICOM format image data is available electronically for review and comparison. Percent stenosis is calculated using the diameter of the stenotic region over the diameter of the nor mal distal internal carotid artery. FINDINGS: Aortic Arch: There is a three-vessel origin of the great vessels from the aorta. Mild atheroscleroti c plaque without significant flow-limiting stenosis. Right Carotid: Bulky eccentric plaque in the distal common carotid artery and bulb with resultant le ss than 20% stenosis. Concentric predominantly noncalcified plaque in the origin of the internal caballero tid artery with resultant approximately 80-85% stenosis. . Internal carotid arteries otherwise patent to the skull base The external carotid artery is intact. Left Carotid: The common carotid artery is intact. Bulky calcified plaque extending from the distal carotid bulb to the origin of the internal carotid artery. Resultant up to 45% stenosis of the planner intern al carotid origin. Internal carotid artery is otherwise patent to the skull base. The external caroti d artery is intact. Vertebrals: The vertebral arteries have a symmetric diameter. No stenotic lesions are seen. General Findings: Bilateral pleural effusions noted near the visualized lung apices. 7 mm right thyro id nodule. Mucopyocele thickening in the inferior left maxillary sinus. CONCLUSION: 1. CTA examination confirms high grade, approximately 80-85% focal stenosis of the right internal ca rotid artery origin secondary to concentric predominantly noncalcified plaque. 2. Mild up to 45% stenosis of the left internal carotid artery origin secondary to bulky eccentric c alcified plaque. 3. Vertebral arteries are patent bilaterally. 4. Bilateral pleural effusions. 5. 7 mm right thyroid nodule. Electronically signed by: Rio Conway MD 06/27/2018 2:17 PM EDT
--- NOTE | 2018-06-27 16:09 | P.PN ---
Subjective Interval history: Nursing denies any deterioration since last night. Patient herself has no new complaints. Physical Exam Vital signs: Vital Signs 06/26/18 17:00 06/26/18 18:00 06/26/18 19:00 Temperature Pulse Rate 78 81 84 Respiratory Rate 18 18 18 Blood Pressure 146/71 H 174/85 H 170/90 H Pulse Oximetry 94 L 93 L 95 06/26/18 20:00 06/26/18 20:05 06/26/18 20:22 Temperature 98.0 F Pulse Rate 76 Respiratory Rate 18 16 Blood Pressure 181/84 H Pulse Oximetry 99 99 06/26/18 21:00 06/26/18 22:00 06/26/18 23:00 Temperature Pulse Rate 75 76 73 Respiratory Rate 15 15 15 Blood Pressure 175/78 H 169/83 H 166/74 H Pulse Oximetry 97 97 97 06/27/18 00:00 06/27/18 01:00 06/27/18 02:00 Temperature 98.6 F Pulse Rate 68 68 71 Respiratory Rate 14 17 23 Blood Pressure 163/79 H 146/67 H 133/69 Pulse Oximetry 97 97 96 06/27/18 03:00 06/27/18 04:00 06/27/18 05:00 Temperature 98.3 F Pulse Rate 74 70 68 Respiratory Rate 15 14 16 Blood Pressure 163/74 H 164/80 H 162/79 H Pulse Oximetry 97 98 97 06/27/18 06:00 06/27/18 07:00 06/27/18 07:44 Temperature Pulse Rate 66 66 Respiratory Rate 15 16 Blood Pressure 134/63 137/76 Pulse Oximetry 97 97 97 06/27/18 08:00 06/27/18 09:00 06/27/18 10:00 Temperature 98.1 F Pulse Rate 71 68 71 Respiratory Rate 15 14 14 Blood Pressure 159/74 H 163/92 H 154/73 H Pulse Oximetry 98 97 97 06/27/18 11:00 06/27/18 12:00 06/27/18 13:00 Temperature 98.4 F Pulse Rate 70 73 76 Respiratory Rate 14 14 14 Blood Pressure 176/81 H Pulse Oximetry 97 97 97 06/27/18 14:00 Temperature Pulse Rate 77 Respiratory Rate 15 Blood Pressure 175/91 H Pulse Oximetry 97 Intake & Output 06/26/18 06/27/18 06/27/18 18:59 06:59 18:59 Intake Total 2681 / 2681 240 / 240 Output Total 1200 / 1200 1575 / 1575 Balance 1481 / 1481 -1335 / -1335 Weight 67.5 kg Intake: IV 2200 / 2200 D5W/LR Inj 1,000 ML @ 150 mls/ 1000 / 1000 hr IV.CONT .Q6H40M [facility] Rx#: [id number] Alburx 5% Inj 500 ML @ 250 mls/ 1100 / 1100 hr IV.SIG Q6H [facility] Rx#:[id number] Thiamine Inj 100 MG In NS Inj 101 / 101 100 ML @ 100 mls/hr IV.SIG DAILY [facility] Rx#:[id number] Oral 480 / 480 240 / 240 Output: Urine 1200 / 1200 1575 / 1575 Other: Date of Last Bowel Movement 06/25/18 06/25/18 06/25/18 # Bowel Movements 0 0 Narrative: Heart sounds regular rate rhythm Clear lungs bilaterally, unlabored breathing Appears slightly fatigued AOX3, insight intact towards hospitalization reason Results - Labs CBC & Chem 7: 06/27/18 04:06 06/27/18 04:06 Laboratory Results - last 24 hr 06/26/18 06/26/18 06/27/18 18:35 23:28 04:06 WBC 4.6 RBC 2.49 L Hgb 9.5 L Hct 27.1 L MCV 108.8 H MCH 38.0 H MCHC 34.9 RDW 14.7 Plt Count 117 L MPV 9.4 Neut % (Auto) 64.7 Lymph % (Auto) 24.0 Stevens % (Auto) 8.2 H Eos % (Auto) 2.7 Baso % (Auto) 0.4 Neut # (Auto) 3.0 Lymph # (Auto) 1.1 Stevens # (Auto) 0.4 Eos # (Auto) 0.1 Baso # (Auto) 0.0 WBC Differential . Differential Comment Auto diff final Sodium Potassium Chloride Carbon Dioxide Anion Gap BUN Creatinine Estimated GFR POC Glucose 161 H 147 H Random Glucose Calcium Total Bilirubin AST ALT Alkaline Phosphatase Total Protein Albumin 06/27/18 06/27/18 06/27/18 04:06 05:13 13:06 WBC RBC Hgb Hct MCV MCH MCHC RDW Plt Count MPV Neut % (Auto) Lymph % (Auto) Stevens % (Auto) Eos % (Auto) Baso % (Auto) Neut # (Auto) Lymph # (Auto) Stevens # (Auto) Eos # (Auto) Baso # (Auto) WBC Differential Differential Comment Sodium 142 Potassium 3.0 L Chloride 106 Carbon Dioxide 26.6 Anion Gap 9 BUN 14 Creatinine 0.77 Estimated GFR 77 L POC Glucose 135 H 101 Random Glucose 115 H Calcium 7.5 L Total Bilirubin 1.2 H AST 47 H ALT 37 Alkaline Phosphatase 45 Total Protein 6.5 Albumin 3.8 Microbiology 06/25/18 19:50 Blood - Peripheral Aerobic Blood Culture - Preliminary No growth in 2 days 06/25/18 19:50 Blood - Peripheral Anaerobic Blood Culture - Preliminary No growth in 2 days 06/25/18 19:45 Blood - Peripheral Aerobic Blood Culture - Preliminary No growth in 2 days 06/25/18 19:45 Blood - Peripheral Anaerobic Blood Culture - Preliminary No growth in 2 days - Imaging Impressions Neck CTA 06/27/18 00:00 CONCLUSION: 1. CTA examination confirms high grade, approximately 80-85% focal stenosis of the right internal carotid artery origin secondary to concentric predominantly noncalcified plaque. 2. Mild up to 45% stenosis of the left internal carotid artery origin secondary to bulky eccentric calcified plaque. 3. Vertebral arteries are patent bilaterally. 4. Bilateral pleural effusions. 5. 7 mm right thyroid nodule. Assessment and Plan - Plan 57 years old female who was admitted with altered mental status likely secondary to alcohol intoxication w/ ANALISA and hypotension - These resolved w/ IVFs. Pt had carotid workup which demonstrated hi grade right stenosis, vascular surgery planning endarterectomy. Altered mental status Syncope -resolved Alcohol intoxication hypokalemia -CIWA protocol -replacing K, rechecking K in AM Right Internal carotid stenosis - on syncopal work up - endarterectomy planned - starting lipitor ANALISA Hypotension- - resolved w/ IVFs Hypoglycemia- -resolved COPD -stable, DuoNeb's as needed DVT GI prophylaxis -Teds SCDs -Subcu heparin -PPI for GI prophylaxis PT eval and treat
[2018-06-27] MEDS: Lisinopril 10 MG Tablet PO SCH (19:09)
--- NOTE | 2018-06-28 01:24 | ECG ---
Date Performed: 06/26/2018 Time Performed: 05:58:18 PTAGE: 57 years EKG: Sinus rhythm . Prolonged QT interval Borderline ECG Since the PREVIOUS TRACING , no significant change noted DOCTOR: Ish Bhakta Interpretating Date/Time 06/28/2018 01:23:46
--- NOTE | 2018-06-28 01:46 | ECG ---
Date Performed: 06/25/2018 Time Performed: 19:35:16 PTAGE: 57 years EKG: Sinus rhythm PROLONGED QT INTERVAL ABNORMAL ECG Compared to PREVIOUS TRACING , ST/T wave changes less prominent DOCTOR: Ish Bhakta Interpretating Date/Time 06/28/2018 01:45:39
[2018-06-28] MEDS: Heparin - SQ 10,000 UNITS/ML Vial SQ SCH ×4 (02:05→22:41)
[2018-06-28] MEDS: Chlorhexidine Gluconate 2% 1 Pack (2 Cloths) TOPICAL SCH (05:34)
[2018-06-28 06:17] LABS: Baso % (Auto) 0.2 % (0.0-2.0); Eos # (Auto) 0.2 th/mm3 (0.0-0.4); Eos % (Auto) 2.9 % (0.0-4.0); Hematocrit 34.1 % (35.0-46.0); Hemoglobin 11.7 gm/dL (11.6-15.3); Lymph # (Auto) 1.2 th/mm3 (1.0-4.8); Lymph % (Auto) 22.2 % (9.0-44.0); Mean Corpuscular HGB Conc 34.3 % (32.0-36.0); Mean Corpuscular Hemoglobin 37.6 pg (27.0-34.0); Mean Corpuscular Volume 109.5 fL (80.0-100.0); Mean Platelet Volume 8.3 fL (7.0-11.0); Mono # (Auto) 0.5 th/mm3 (0.0-0.9); Mono % (Auto) 8.4 % (0.0-8.0); Neut # (Auto) 3.6 th/mm3 (1.8-7.7); Neut % (Auto) 66.3 % (16.0-70.0); Platelet Count 85 th/mm3 (150-450); Red Blood Count 3.12 mil/mm3 (4.00-5.30); Red Cell Distribution Width 14.5 % (11.6-17.2); White Blood Count 5.5 th/mm3 (4.0-11.0)
[2018-06-28 06:53] LABS: Calcium 8.5 mg/dL (8.5-10.1); Carbon Dioxide 28.7 meq/L (21.0-32.0); Potassium 3.2 meq/L (3.5-5.1)
--- NOTE | 2018-06-28 09:01 | P.PN ---
Subjective Interval history: This is a pleasant 57 y/o Female admitted due to AMS likely secondary to alcohol intoxication w/ ANALISA and hypotension Resolved, found with high grade stenosis of the Right Carotid artery. planned for Carotid Endarterectomy for later today. 06/28: Patient seen in her bedroom no nausea, vomit or diarrhea. awaiting for surgical procedure. Physical Exam Vital signs: Vital Signs 06/27/18 09:00 06/27/18 10:00 06/27/18 11:00 Temperature Pulse Rate 68 71 70 Respiratory Rate 14 14 14 Blood Pressure 163/92 H 154/73 H 176/81 H Pulse Oximetry 97 97 97 06/27/18 12:00 06/27/18 13:00 06/27/18 14:00 Temperature 98.4 F Pulse Rate 73 76 77 Respiratory Rate 14 14 15 Blood Pressure 175/91 H Pulse Oximetry 97 97 97 06/27/18 15:00 06/27/18 16:00 06/27/18 17:00 Temperature Pulse Rate 77 77 77 Respiratory Rate 15 15 15 Blood Pressure 179/79 H 178/84 H 180/92 H Pulse Oximetry 97 97 97 06/27/18 18:00 06/27/18 19:00 06/27/18 20:00 Temperature Pulse Rate 74 77 76 Respiratory Rate 14 16 Blood Pressure 191/91 H 195/118 H Pulse Oximetry 95 95 96 06/27/18 21:00 06/27/18 21:15 06/27/18 22:00 Temperature Pulse Rate 76 76 Respiratory Rate Blood Pressure 158/84 H 178/102 H Pulse Oximetry 06/27/18 22:15 06/27/18 22:30 06/27/18 23:00 Temperature Pulse Rate 74 Respiratory Rate Blood Pressure 164/101 H 174/96 H Pulse Oximetry 06/28/18 00:00 06/28/18 00:45 06/28/18 01:34 Temperature Pulse Rate 72 68 Respiratory Rate 16 Blood Pressure 162/80 H 182/106 H Pulse Oximetry 92 L 06/28/18 01:35 06/28/18 01:47 06/28/18 04:00 Temperature Pulse Rate 10 L 69 Respiratory Rate 16 Blood Pressure 159/89 H Pulse Oximetry 94 L 06/28/18 05:41 Temperature Pulse Rate 74 Respiratory Rate Blood Pressure Pulse Oximetry Intake & Output 06/27/18 06/28/18 06/28/18 18:59 06:59 18:59 Intake Total 3681 / 3681 150 / 150 Output Total 1350 / 1350 Balance 2331 / 2331 150 / 150 Weight 67.5 kg Intake: IV 3201 / 3201 150 / 150 D5W/LR Inj 1,000 ML @ 70 mls/hr 1000 / 1000 IV.CONT .[id number] [facility] Rx#: [id number] KCl 20 mEq Premix Inj 20 meq In 100 / 100 100 ml @ 50 mls/hr IV.SIG ONCE ONE Rx#:[id number] Thiamine Inj 100 MG In NS Inj 101 / 101 100 ML @ 100 mls/hr IV.SIG DAILY [facility] Rx#:[id number] Oral 480 / 480 Output: Urine 1350 / 1350 Other: Date of Last Bowel Movement 06/27/18 06/27/18 # Bowel Movements 3 Narrative: GENERAL: This is a well-nourished, well-developed patient, in no apparent distress. CARDIOVASCULAR: Regular rate and rhythm without murmurs, gallops, or rubs. RESPIRATORY: Clear to auscultation. Breath sounds equal bilaterally. No wheezes , rales, or rhonchi. GASTROINTESTINAL: Abdomen soft, non-tender, nondistended. Normal active bowel sounds MUSCULOSKELETAL: Extremities without clubbing, cyanosis, or edema. NEURO: Alert & Oriented x4 to person, place, time, situation. Moves all ext x4 - Urinary Catheter Management Indwelling Urethral Catheter Cath placed during this visit: yes Reason for continuing: Hourly intake/output Insertion date: 06/28/18 Insertion time: 12:15 Results - Labs CBC & Chem 7: 06/28/18 05:53 06/28/18 05:53 Laboratory Results - last 24 hr 06/27/18 06/27/18 06/28/18 13:06 17:41 02:45 WBC RBC Hgb Hct MCV MCH MCHC RDW Plt Count MPV Prelim Diff (Auto) Neut % (Auto) Lymph % (Auto) [place] % (Auto) Eos % (Auto) Baso % (Auto) Neut # (Auto) Lymph # (Auto) [place] # (Auto) Eos # (Auto) Baso # (Auto) Differential Comment Sodium Potassium Chloride Carbon Dioxide Anion Gap BUN Creatinine Estimated GFR POC Glucose 101 106 109 Random Glucose Calcium 06/28/18 06/28/18 05:53 05:53 WBC 5.5 RBC 3.12 L Hgb 11.7 D Hct 34.1 L MCV 109.5 H MCH 37.6 H MCHC 34.3 RDW 14.5 Plt Count 85 L MPV 8.3 Prelim Diff (Auto) Slide review pending Neut % (Auto) 66.3 Lymph % (Auto) 22.2 [place] % (Auto) 8.4 H Eos % (Auto) 2.9 Baso % (Auto) 0.2 Neut # (Auto) 3.6 Lymph # (Auto) 1.2 [place] # (Auto) 0.5 Eos # (Auto) 0.2 Baso # (Auto) 0.0 Differential Comment . Sodium 137 Potassium 3.2 L Chloride 100 Carbon Dioxide 28.7 Anion Gap 8 BUN 8 Creatinine 0.72 Estimated GFR 83 L POC Glucose Random Glucose 94 Calcium 8.5 D Microbiology 06/25/18 19:50 Blood - Peripheral Aerobic Blood Culture - Preliminary No growth in 2 days 06/25/18 19:50 Blood - Peripheral Anaerobic Blood Culture - Preliminary No growth in 2 days 06/25/18 19:45 Blood - Peripheral Aerobic Blood Culture - Preliminary No growth in 2 days 06/25/18 19:45 Blood - Peripheral Anaerobic Blood Culture - Preliminary No growth in 2 days - Imaging Impressions Neck CTA 06/27/18 00:00 CONCLUSION: 1. CTA examination confirms high grade, approximately 80-85% focal stenosis of the right internal carotid artery origin secondary to concentric predominantly noncalcified plaque. 2. Mild up to 45% stenosis of the left internal carotid artery origin secondary to bulky eccentric calcified plaque. 3. Vertebral arteries are patent bilaterally. 4. Bilateral pleural effusions. 5. 7 mm right thyroid nodule. - Procedures None Assessment and Plan - Plan This is a pleasant 57 y/o Female admitted due to AMS likely secondary to alcohol intoxication w/ ANALISA and hypotension Resolved, found with high grade stenosis of the Right Carotid artery. planned for Carotid Endarterectomy for later today. Altered mental status Syncope -resolved Alcohol intoxication hypokalemia -CIWA protocol -replacing K, rechecking K in AM Right Internal carotid stenosis - on syncopal work up - endarterectomy planned - starting lipitor ANALISA Hypotension- - resolved w/ IVFs Hypoglycemia- -resolved COPD -stable, DuoNeb's as needed DVT GI prophylaxis -Teds SCDs -Subcu heparin -PPI for GI prophylaxis PT eval and treat Code Status: Full code. Discussed Condition With: patient and nurse Miss Tatum Discharge Planning: Once cleared by specialist.
[2018-06-28] MEDS: Lisinopril 10 MG Tablet PO SCH (09:10)
[2018-06-28] MEDS: Senna/Docusate Sodium 8.6/50 MG Tablet PO SCH ×2 (09:11→20:49)
[2018-06-28] MEDS: Thiamine Inj 100 MG in Sodium Chlor 0.9% Inj 100 ML IV.SIG SCH (09:27)
[2018-06-28] MEDS ORDERED: Protamine Sulfate Inj 50 MG/5 ML Vial ONE (10:54)
[2018-06-28] MEDS ORDERED: Gelatin Size 100 Topical Foam ONE (10:54)
[2018-06-28] MEDS ORDERED: Heparin 10,000 UNITS/10 ML Vial (for IV use) ONE (10:54)
[2018-06-28] MEDS ORDERED: Heparin/NS PF Inj 500 ML ONE (10:55)
[2018-06-28] MEDS ORDERED: Thrombin Topical 20,000 UNIT Spray Kit TOPICAL ONE (10:55)
[2018-06-28] MEDS ORDERED: ceFAZolin 2 GM Premix Inj 2 GM/50 ML PIGGYBACK IV.SIG ONE (11:41)
[2018-06-28] MEDS ORDERED: Phenylephrine/NS 1000 MCG/10ML Syringe IV.PUSH ONE (11:42)
[2018-06-28] MEDS ORDERED: Sodium Chlor 0.9% Inj 250 ML IV.CONT ONE (11:42)
[2018-06-28] MEDS ORDERED: Sodium Chlor 0.9% Inj 500 ML IV.CONT ONE (11:42)
[2018-06-28] MEDS ORDERED: Lidocaine PF 1% Inj 5 ML Syringe OTHER ONE (11:42)
[2018-06-28] MEDS ORDERED: Esmolol Bolus Inj 100 MG/10 ML Vial IV.PUSH ONE (11:42)
--- NOTE | 2018-06-28 15:31 | P.OP ---
Preoperative Diagnosis: Severe stenosis of the right carotid artery Postoperative Diagnosis: Severe stenosis of the right carotid artery Date of procedure: 06/28/18 Procedure: Right carotid artery endarterectomy with pericardial patch angioplasty Implants: Pericardial patch Anesthesia: KELSIA Surgeon: Winston Stephen MD Estimated blood loss (mL): 50 Operation and Findings: Findings #1 near occlusion of the right internal carotid artery. There was treated using carotid artery endarterectomy with pericardial patch angioplasty. I used an [place] shunt and my total clamp time was less than 1 minute. Procedure The patient was taken to the operating room laid supine needle table. After general trach anesthesia the patient's prepped and draped in the standard sterile fashion. Timeout was called with all members and they are in agreement. An incision was made just anterior to the right sternocleidomastoid muscle. Dissection was taken down through the subcutaneous tissues electrocautery. The carotid sheath was entered. The common carotid artery external carotid artery internal carotid artery were dissected and encircled Silastic loop. The hypoglossal nerve the vagus nerve identified and protected throughout the whole procedure. We also identified the ansa cervicalis and there were preserved as well. Patient was heparinized and proximal distal control obtained. An arteriotomy was created in the common carotid artery that extended into the internal carotid artery. #8 [place] shunt was brought into the field to establish flow from the common carotid artery to the internal carotid artery. The endarterectomy was performed. All the small debris were removed and the artery was repaired using a pericardial patch that was cut to appropriate length and secured using 6-0 Prolene suture in a running fashion. Hemostasis achieved. #19 LUPE drain was placed into the wound brought to the skin using a different stab wound and secured using a nylon suture. The patient tolerated the procedure well, she will confirm anesthesia with no neurological deficits and her tongue was midline.
[2018-06-28] MEDS ORDERED: fentaNYL Citrate Inj 100 MCG/2 ML Ampul ONE (15:35)
[2018-06-28] MEDS: Sod Chloride 0.9% Inj 1,000 ML IV.CONT SCH (16:18)
[2018-06-28] MEDS ORDERED: Potassium Chlor 20 mEq Premix 20 MEQ/100 ML PIGGYBACK IV.SIG PRN ×2 (16:35)
[2018-06-28] MEDS ORDERED: Potassium Chlor 40 mEq Premix 40 MEQ/100 ML PIGGYBACK IV.SIG PRN ×2 (16:35)
[2018-06-28] MEDS ORDERED: Sodium Phosphate Inj 30 MMOL in Sodium Chlor 0.9% Inj 250 ML IV.SIG PRN (16:35)
[2018-06-28] MEDS ORDERED: Potassium Phosphate Inj 30 MMOL in Sodium Chlor 0.9% Inj 250 ML IV.SIG PRN (16:35)
[2018-06-28] MEDS ORDERED: Magnesium Sulfate Inj 2 GM in Sodium Chlor 0.9% Inj 96 ML IV.SIG PRN (16:35)
[2018-06-28] MEDS ORDERED: Magnesium Sulfate Inj 4 GM in Sodium Chlor 0.9% Inj 92 ML IV.SIG PRN (16:35)
[2018-06-28] MEDS ORDERED: Potassium Chloride 25 MEQ Effervescent Tablet PO PRN (16:35)
[2018-06-28] MEDS ORDERED: Magnesium Oxide 400 MG Tablet PO PRN (16:35)
[2018-06-28] MEDS ORDERED: Potassium Phosphate 500 MG Soluble Tablet PO PRN ×2 (16:35)
--- NOTE | 2018-06-28 16:45 | P.PNCC ---
Subjective Subjective Remarks/Hospital Course: 06/25: 57-year-old female With history of alcoholism, hypertension, homelessness , presents via EMS for evaluation of syncope and low blood pressure. Patient reports that for the past few days she has been feeling dizzy and lightheaded. She reports that today she was walking and she passed out twice. She was found on the sidewalk by a passerby who called paramedics. Patient is currently complaining of dizziness and lightheadedness as well as left-sided facial pain where she hit the ground. On examination she is also complaining of lower abdominal pain. She denies neck or back pain, chest pain, shortness of breath, fevers, chills, cough, congestion, open wounds. She denies any history of IV drug use. She has no other complaints at this time. Her alcohol level in the emergency department is 281. 06/26: Resting comfortably. Looks dry. Knows she is in the hospital. States that she is homeless. Hypoglycemia earlier this morning. Denies any chest pain or shortness of breath. States that she was passing out before she was brought to the hospital and that she had not had anything to eat for 2 days. [facility] Reconsult note 06/28/18: Critical care reconsulted by vascular surgery Dr. Stephen. Workup for syncope had revealed severe stenosis (80-85%)of the right carotid artery. Today 06/28/18, patient underwent Right carotid artery endarterectomy with pericardial patch angioplasty. Post surgery patient was moved to the ICU critical care medicine was reconsulted. I evaluated the patient she is alert awake oriented following commands. Complains of pain at the surgical site. Received 1.5 L fluid boluses in the OR, urine output appears adequate. Objective Vital Signs / I&O: Vital Signs 06/27/18 17:00 06/27/18 18:00 06/27/18 19:00 Temperature Pulse Rate 77 74 77 Respiratory Rate 15 14 16 Blood Pressure 180/92 H 191/91 H 195/118 H Pulse Oximetry 97 95 95 06/27/18 20:00 06/27/18 21:00 06/27/18 21:15 Temperature Pulse Rate 76 76 Respiratory Rate Blood Pressure 158/84 H Pulse Oximetry 96 06/27/18 22:00 06/27/18 22:15 06/27/18 22:30 Temperature Pulse Rate 76 Respiratory Rate Blood Pressure 178/102 H 164/101 H 174/96 H Pulse Oximetry 06/27/18 23:00 06/28/18 00:00 06/28/18 00:45 Temperature Pulse Rate 74 72 68 Respiratory Rate 16 Blood Pressure 162/80 H Pulse Oximetry 92 L 06/28/18 01:34 06/28/18 01:35 06/28/18 01:47 Temperature Pulse Rate 10 L Respiratory Rate Blood Pressure 182/106 H 159/89 H Pulse Oximetry 06/28/18 04:00 06/28/18 05:41 06/28/18 08:00 Temperature 97.8 F Pulse Rate 69 74 97 H Respiratory Rate 16 18 Blood Pressure 150/97 H Pulse Oximetry 94 L 95 06/28/18 15:49 Temperature 97.6 F Pulse Rate 76 Respiratory Rate 16 Blood Pressure 157/97 H Pulse Oximetry 97 Intake & Output 06/27/18 06/28/18 06/28/18 18:59 06:59 18:59 Intake Total 3681 / 3681 150 / 150 751 / 751 Output Total 1350 / 1350 900 / 900 Balance 2331 / 2331 150 / 150 -149 / -149 Weight 67.5 kg Intake: IV 3201 / 3201 150 / 150 151 / 151 D5W/LR Inj 1,000 ML @ 70 mls/hr 1000 / 1000 IV.CONT .[id number] [facility] Rx#: [id number] KCl 20 mEq Premix Inj 20 meq In 100 / 100 100 ml @ 50 mls/hr IV.SIG ONCE ONE Rx#:[id number] Thiamine Inj 100 MG In NS Inj 101 / 101 101 / 101 100 ML @ 100 mls/hr IV.SIG DAILY [facility] Rx#:[id number] Ancef 2 GM Premix Inj 2 gm In 50 / 50 50 ml @ 0 mls/hr IV.SIG .STK- MED ONE Rx#:[id number] Oral 480 / 480 Anesthesia Amount 600 / 600 Output: Urine 1350 / 1350 Estimated Blood Loss 100 / 100 Urine Amount (Catheter) 800 / 800 Indwelling Urethral Catheter 800 / 800 Other: Date of Last Bowel Movement 06/27/18 06/27/18 06/27/18 # Bowel Movements 3 Result Diagrams: 06/28/18 05:53 06/28/18 05:53 Objective Remarks: - Constitutional Mild distress - HEENT Exam Head: normocephalic, atraumatic Eye:PERRL ENT: Mucous membranes dry - Routine Neck Exam Right carotid endarterectomy incision C/D/I - Routine Respiratory Exam No accessory muscle use, stridor, wheezes, crackles - Routine Cardiovascular Exam RRR, S1, S2. No murmur, gallop - Routine Abdominal Exam Soft, normoactive bowel sounds. - Routine Extremities Exam No cyanosis, clubbing, edema - Routine Skin Exam Intact. Absent: cyanosis, erythema - Routine Neurological Exam Awake, alert, oriented. Moving all 4 extremities, grossly nonfocal Assessment and Plan - Assessment and Plan Plan: A/P: s/p carotid endarterectomy Critical right internal carotid stenosis -Post op management per Dr. Stephen -Aspirin from a.m. -Continue Lipitor and subcu heparin -Maintain systolic blood pressure 140-150 Altered mental status Syncope -Alcohol intoxication-now resolved -Aggressive IV fluid resuscitation with normal saline at 125 mL/h -Neuro checks per unit protocol -Telemetry -CT head negative Alcohol abuse and intoxication -[facility] medications and protocol to monitor for withdrawal -Supplement multivitamin thiamine Hypotension-resolved -Dehydration -Aggressive IV fluid resuscitation -IV albumin COPD -DuoNeb's as needed Hypokalemia -Electrolyte replacement per protocol DVT GI prophylaxis -Teds SCDs -Subcu heparin -Pepcid Level 3 follow up Code Status: Full
[2018-06-28] MEDS: Multivitamin Inj 10 ML, Thiamine Inj 100 MG, Folic Acid Inj 1 MG in Sodium Chlor 0.9% I... IV.SIG SCH (17:34)
[2018-06-28] MEDS: Morphine Sulfate Inj 2 MG/ML Vial IV.PUSH PRN ×2 (18:31→22:42)
[2018-06-29 05:02] LABS: Baso % (Auto) 0.3 % (0.0-2.0); Eos # (Auto) 0.2 th/mm3 (0.0-0.4); Eos % (Auto) 2.5 % (0.0-4.0); Hematocrit 26.7 % (35.0-46.0); Hemoglobin 9.4 gm/dL (11.6-15.3); Lymph # (Auto) 1.9 th/mm3 (1.0-4.8); Lymph % (Auto) 30.2 % (9.0-44.0); Mean Corpuscular Hemoglobin 37.9 pg (27.0-34.0); Mean Corpuscular Volume 108.3 fL (80.0-100.0); Mono # (Auto) 0.6 th/mm3 (0.0-0.9); Mono % (Auto) 9.1 % (0.0-8.0); Neut # (Auto) 3.6 th/mm3 (1.8-7.7); Neut % (Auto) 57.9 % (16.0-70.0); Platelet Count 54 th/mm3 (150-450); Red Blood Count 2.47 mil/mm3 (4.00-5.30); Red Cell Distribution Width 14.3 % (11.6-17.2); White Blood Count 6.1 th/mm3 (4.0-11.0)
[2018-06-29 05:11] LABS: Anion Gap 7 meq/L (5-15); Blood Urea Nitrogen 8 mg/dL (7-18); Calcium 7.8 mg/dL (8.5-10.1); Carbon Dioxide 28.8 meq/L (21.0-32.0); Chloride 104 meq/L (98-107); Glomerular Filtration Rate Greater Than 89 mL/min (>89); Glucose,Random 85 mg/dL (74-106); Potassium 3.3 meq/L (3.5-5.1); Sodium 140 meq/L (136-145)
[2018-06-29] MEDS: Chlorhexidine Gluconate 2% 1 Pack (2 Cloths) TOPICAL SCH (05:59)
[2018-06-29] MEDS: Sod Chloride 0.9% Inj 1,000 ML IV.CONT SCH ×2 (05:59→09:57)
[2018-06-29] MEDS: Heparin - SQ 10,000 UNITS/ML Vial SQ SCH (06:02)
[2018-06-29] MEDS ORDERED: hydrALAZINE HCl Inj 20 MG/ML Vial IV.PUSH PRN (07:43)
--- NOTE | 2018-06-29 07:48 | P.PNCC ---
Subjective Subjective Remarks/Hospital Course: 06/25: 57-year-old female With history of alcoholism, hypertension, homelessness , presents via EMS for evaluation of syncope and low blood pressure. Patient reports that for the past few days she has been feeling dizzy and lightheaded. She reports that today she was walking and she passed out twice. She was found on the sidewalk by a passerby who called paramedics. Patient is currently complaining of dizziness and lightheadedness as well as left-sided facial pain where she hit the ground. On examination she is also complaining of lower abdominal pain. She denies neck or back pain, chest pain, shortness of breath, fevers, chills, cough, congestion, open wounds. She denies any history of IV drug use. She has no other complaints at this time. Her alcohol level in the emergency department is 281. 06/26: Resting comfortably. Looks dry. Knows she is in the hospital. States that she is homeless. Hypoglycemia earlier this morning. Denies any chest pain or shortness of breath. States that she was passing out before she was brought to the hospital and that she had not had anything to eat for 2 days. [facility] Reconsult note 06/28/18: Critical care reconsulted by vascular surgery Dr. Stephen. Workup for syncope had revealed severe stenosis (80-85%)of the right carotid artery. Today 06/28/18, patient underwent Right carotid artery endarterectomy with pericardial patch angioplasty. Post surgery patient was moved to the ICU critical care medicine was reconsulted. I evaluated the patient she is alert awake oriented following commands. Complains of pain at the surgical site. Received 1.5 L fluid boluses in the OR, urine output appears adequate. SUBJ 06/29/18: No acute events overnight. Platelet count has further dropped to currently 54. I will hold aspirin and subcu heparin check hit panel. Hypotensive will start on scheduled metoprolol Objective Vital Signs / I&O: Vital Signs 06/28/18 08:00 06/28/18 15:49 06/28/18 17:50 Temperature 97.8 F 97.6 F Pulse Rate 97 H 76 Respiratory Rate 18 16 17 Blood Pressure 150/97 H 157/97 H Pulse Oximetry 95 97 06/28/18 18:38 06/28/18 18:47 06/28/18 19:00 Temperature Pulse Rate 68 Respiratory Rate 16 Blood Pressure Pulse Oximetry 97 06/28/18 20:00 06/28/18 23:00 06/29/18 00:00 Temperature 97.9 F 98.2 F Pulse Rate 68 72 73 Respiratory Rate 18 22 Blood Pressure 133/88 149/76 H Pulse Oximetry 99 98 06/29/18 03:00 06/29/18 04:00 06/29/18 07:00 Temperature 98.3 F Pulse Rate 73 71 72 Respiratory Rate 18 Blood Pressure 171/77 H Pulse Oximetry 98 06/29/18 07:31 06/29/18 07:33 Temperature 98.1 F Pulse Rate 74 Respiratory Rate 16 Blood Pressure 175/106 H Pulse Oximetry 98 98 Intake & Output 06/28/18 06/29/18 06/29/18 18:59 06:59 18:59 Intake Total 1577 / 1577 2460 / 2460 Output Total 1045 / 1045 620 / 620 Balance 532 / 532 1840 / 1840 Weight 66 kg Intake: IV 377 / 377 1500 / 1500 NS Inj 1,000 ML @ 125 mls/hr IV 132 / 132 1000 / 1000 .CONT .Q8H [facility] Rx#:[id number] MVI-12 Inj 10 ML Thiamine Inj 94 / 94 500 / 500 100 MG Folvite Inj 1 MG In NS Inj 500 ML @ 125 mls/hr IV.SIG Q24H [facility] Rx#:[id number] Thiamine Inj 100 MG In NS Inj 101 / 101 100 ML @ 100 mls/hr IV.SIG DAILY [facility] Rx#:[id number] Ancef 2 GM Premix Inj 2 gm In 50 / 50 50 ml @ 0 mls/hr IV.SIG .STK- [facility] Rx#:[id number] Oral 600 / 600 960 / 960 Anesthesia Amount 600 / 600 Output: Estimated Blood Loss 100 / 100 Urine Amount (Catheter) 925 / 925 600 / 600 Indwelling Urethral Catheter 925 / 925 600 / 600 Wound Drainage 20 / 20 20 / 20 Right Neck 20 / 20 20 / 20 Other: Date of Last Bowel Movement 06/27/18 06/27/18 # Bowel Movements 0 Result Diagrams: 06/29/18 04:25 06/29/18 04:25 Objective Remarks: - Constitutional No distress - HEENT Exam Head: normocephalic, atraumatic Eye:PERRL ENT: Mucous membranes dry - Routine Neck Exam Right carotid endarterectomy incision C/D/I - Routine Respiratory Exam No accessory muscle use, stridor, wheezes, crackles - Routine Cardiovascular Exam RRR, S1, S2. No murmur, gallop - Routine Abdominal Exam Soft, normoactive bowel sounds. - Routine Extremities Exam No cyanosis, clubbing, edema - Routine Skin Exam Intact. Absent: cyanosis, erythema - Routine Neurological Exam Awake, alert, oriented. Moving all 4 extremities, grossly nonfocal Assessment and Plan - Assessment and Plan Plan: A/P: s/p carotid endarterectomy for Critical right internal carotid stenosis -Post op management per Dr. Stephen -Aspirin placed on hold due to drop in platelet count now 54 -Continue Lipitor and hold subcu heparin -Maintain systolic blood pressure 140-150 Altered mental status-resolved Syncope -Alcohol intoxication-now resolved -IV fluid resuscitation with normal saline at 75 mL/h -Neuro checks per unit protocol -Telemetry -CT head negative Alcohol abuse and intoxication -[facility] medications and protocol to monitor for withdrawal -Supplement multivitamin thiamine Hypotension-resolved Now hypertensive -Start metoprolol 25 mg twice daily, use IV hydralazine and IV Vasotec as needed for SBP more than 160 -Aggressive IV fluid resuscitation -IV albumin as needed Thrombocytopenia -Hold aspirin hold subcu heparin -Check hit panel check B12 COPD -DuoNeb's as needed Hypokalemia -Electrolyte replacement per protocol DVT GI prophylaxis -Teds SCDs -Subcu heparin placed on hold due to thrombocytopenia -Pepcid Level 3 follow up Okay to transfer out of ICU to [facility] Code Status: Full
[2018-06-29 08:00] LABS: Lymphocytes 25 % (9-44); Monocytes 4 % (0-8); Platelet Morphology Normal (Normal); Promyelocyte 1 % (0-0)
[2018-06-29] MEDS: Senna/Docusate Sodium 8.6/50 MG Tablet PO SCH ×2 (08:03→22:21)
[2018-06-29] MEDS: Metoprolol Tartrate 25 MG Tablet PO SCH ×2 (08:03→22:21)
[2018-06-29] MEDS: Lisinopril 10 MG Tablet PO SCH (08:03)
[2018-06-29] MEDS: Morphine Sulfate Inj 2 MG/ML Vial IV.PUSH PRN (08:04)
--- NOTE | 2018-06-29 08:56 | P.PNVS ---
Subjective Subjective/Hospital Course: doing well Tolerating clear diet Objective Vital Signs / I&O: Vital Signs 06/28/18 15:49 06/28/18 17:50 06/28/18 18:38 Temperature 97.6 F Pulse Rate 76 Respiratory Rate 16 17 16 Blood Pressure 157/97 H Pulse Oximetry 97 06/28/18 18:47 06/28/18 19:00 06/28/18 20:00 Temperature 97.9 F Pulse Rate 68 68 Respiratory Rate 18 Blood Pressure 133/88 Pulse Oximetry 97 99 06/28/18 23:00 06/29/18 00:00 06/29/18 03:00 Temperature 98.2 F Pulse Rate 72 73 73 Respiratory Rate 22 Blood Pressure 149/76 H Pulse Oximetry 98 06/29/18 04:00 06/29/18 07:00 06/29/18 07:31 Temperature 98.3 F 98.1 F Pulse Rate 71 72 74 Respiratory Rate 18 16 Blood Pressure 171/77 H 175/106 H Pulse Oximetry 98 98 06/29/18 07:33 06/29/18 08:02 Temperature Pulse Rate Respiratory Rate Blood Pressure Pulse Oximetry 98 98 Intake & Output 06/28/18 06/29/18 06/29/18 18:59 06:59 18:59 Intake Total 1577 / 1577 2460 / 2460 Output Total 1045 / 1045 620 / 620 Balance 532 / 532 1840 / 1840 Weight 66 kg Intake: IV 377 / 377 1500 / 1500 NS Inj 1,000 ML @ 125 mls/hr IV 132 / 132 1000 / 1000 .CONT .Q8H [facility] Rx#:[id number] MVI-12 Inj 10 ML Thiamine Inj 94 / 94 500 / 500 100 MG Folvite Inj 1 MG In NS Inj 500 ML @ 125 mls/hr IV.SIG Q24H [facility] Rx#:[id number] Thiamine Inj 100 MG In NS Inj 101 / 101 100 ML @ 100 mls/hr IV.SIG DAILY [facility] Rx#:[id number] Ancef 2 GM Premix Inj 2 gm In 50 / 50 50 ml @ 0 mls/hr IV.SIG .STK- [facility] Rx#:[id number] Oral 600 / 600 960 / 960 Anesthesia Amount 600 / 600 Output: Estimated Blood Loss 100 / 100 Urine Amount (Catheter) 925 / 925 600 / 600 Indwelling Urethral Catheter 925 / 925 600 / 600 Wound Drainage Right Neck Other: Date of Last Bowel Movement 06/27/18 06/27/18 # Bowel Movements 0 Physical Exam: Cranial nerves II through XII intact No neurological deficits, tongue is midline Right neck incision is clean dry intact with no hematomas LUPE drain with minimal output Laboratory Results - last 24 hr 06/28/18 06/28/18 06/29/18 05:53 17:16 04:25 WBC 6.1 RBC 2.47 L Hgb 9.4 L D Hct 26.7 L MCV 108.3 H MCH 37.9 H MCHC 35.0 RDW 14.3 Plt Count 54 L D MPV 9.0 Prelim Diff (Auto) Slide review pending Neut % (Auto) 57.9 Lymph % (Auto) 30.2 [place] % (Auto) 9.1 H Eos % (Auto) 2.5 Baso % (Auto) 0.3 Neut # (Auto) 3.6 Lymph # (Auto) 1.9 [place] # (Auto) 0.6 Eos # (Auto) 0.2 Baso # (Auto) 0.0 WBC Differential . Manual diff final Diff Scan Auto diff confirmed Seg Neuts % (Manual) 67 Band Neuts % (Manual) 2 Lymphocytes % (Manual) 25 Monocytes % (Manual) 4 Basophils % (Manual) 1 Promyelocytes % (Man) 1 H Abs Neuts (Manual) 4.3 Differential Comment . Platelet Estimate Low L Platelet Morphology Normal Sodium Potassium Chloride Carbon Dioxide Anion Gap BUN Creatinine Estimated GFR POC Glucose 100 Random Glucose Calcium 06/29/18 06/29/18 04:25 04:30 WBC RBC Hgb Hct MCV MCH MCHC RDW Plt Count MPV Prelim Diff (Auto) Neut % (Auto) Lymph % (Auto) [place] % (Auto) Eos % (Auto) Baso % (Auto) Neut # (Auto) Lymph # (Auto) [place] # (Auto) Eos # (Auto) Baso # (Auto) WBC Differential Diff Scan Seg Neuts % (Manual) Band Neuts % (Manual) Lymphocytes % (Manual) Monocytes % (Manual) Basophils % (Manual) Promyelocytes % (Man) Abs Neuts (Manual) Differential Comment Platelet Estimate Platelet Morphology Sodium 140 Potassium 3.3 L Chloride 104 Carbon Dioxide 28.8 Anion Gap 7 BUN 8 Creatinine 0.52 Estimated GFR Greater than 89 POC Glucose 96 Random Glucose 85 Calcium 7.8 L Microbiology 06/25/18 19:50 Aerobic Blood Culture - Preliminary Blood - Peripheral No growth in 3 days Anaerobic Blood Culture - Preliminary No growth in 3 days 06/25/18 19:45 Aerobic Blood Culture - Preliminary Blood - Peripheral No growth in 3 days Anaerobic Blood Culture - Preliminary No growth in 3 days Impressions Neck CTA 06/27/18 00:00 CONCLUSION: 1. CTA examination confirms high grade, approximately 80-85% focal stenosis of the right internal carotid artery origin secondary to concentric predominantly noncalcified plaque. 2. Mild up to 45% stenosis of the left internal carotid artery origin secondary to bulky eccentric calcified plaque. 3. Vertebral arteries are patent bilaterally. 4. Bilateral pleural effusions. 5. 7 mm right thyroid nodule. Assessment and Plan - Plan Status post right carotid artery endarterectomy We will advance diet as tolerated DC LUPE drain DC [place] and A-line
--- NOTE | 2018-06-29 12:23 | P.PN ---
Subjective Interval history: This is a pleasant 57 y/o Female admitted due to AMS likely secondary to alcohol intoxication w/ ANALISA and hypotension Resolved, found with high grade stenosis of the Right Carotid artery. planned for Carotid Endarterectomy for later today. 06/28: awaiting for surgical procedure. 06/29: With diagnosis of severe Stenosis of the Right carotid artery, status post Right carotid artery endarterectomy with pericardial patch angioplasty. by doctor Winston Stephen. 06/28/18. No nausea, vomit or diarrhea, as per Vascular holistic specialist recommended to advance diet as tolerated, remove LUPE drain and Piña Cath. Physical Exam Vital signs: Vital Signs 06/28/18 15:49 06/28/18 17:50 06/28/18 18:38 Temperature 97.6 F Pulse Rate 76 Respiratory Rate 16 17 16 Blood Pressure 157/97 H Pulse Oximetry 97 06/28/18 18:47 06/28/18 19:00 06/28/18 20:00 Temperature 97.9 F Pulse Rate 68 68 Respiratory Rate 18 Blood Pressure 133/88 Pulse Oximetry 97 99 06/28/18 23:00 06/29/18 00:00 06/29/18 03:00 Temperature 98.2 F Pulse Rate 72 73 73 Respiratory Rate 22 Blood Pressure 149/76 H Pulse Oximetry 98 06/29/18 04:00 06/29/18 07:00 06/29/18 07:31 Temperature 98.3 F 98.1 F Pulse Rate 71 72 74 Respiratory Rate 18 16 Blood Pressure 171/77 H 175/106 H Pulse Oximetry 98 98 06/29/18 07:33 06/29/18 08:02 06/29/18 09:56 Temperature Pulse Rate Respiratory Rate 15 Blood Pressure Pulse Oximetry 98 98 06/29/18 11:00 Temperature Pulse Rate 75 Respiratory Rate Blood Pressure Pulse Oximetry Intake & Output 06/28/18 06/29/18 06/29/18 18:59 06:59 18:59 Intake Total 1577 / 1577 2460 / 2460 225 / 225 Output Total 1045 / 1045 620 / 620 Balance 532 / 532 1840 / 1840 225 / 225 Weight 66 kg Intake: IV 377 / 377 1500 / 1500 225 / 225 NS Inj 1,000 ML @ 125 mls/hr IV 132 / 132 1000 / 1000 200 / 200 .CONT .Q8H [facility] Rx#:[id number] MVI-12 Inj 10 ML Thiamine Inj 94 / 94 500 / 500 100 MG Folvite Inj 1 MG In NS Inj 500 ML @ 125 mls/hr IV.SIG Q24H [facility] Rx#:[id number] KCl 40 mEq Premix Inj 40 meq In / 25 100 ml @ 50 mls/hr IV.SIG Q2H PRN Rx#:[id number] Thiamine Inj 100 MG In NS Inj 101 / 101 100 ML @ 100 mls/hr IV.SIG DAILY [facility] Rx#:[id number] Ancef 2 GM Premix Inj 2 gm In 50 / 50 50 ml @ 0 mls/hr IV.SIG .STK- [facility] Rx#:[id number] Oral 600 / 600 960 / 960 Anesthesia Amount 600 / 600 Output: Estimated Blood Loss 100 / 100 Urine Amount (Catheter) 925 / 925 600 / 600 Indwelling Urethral Catheter 925 / 925 600 / 600 Wound Drainage 20 / 20 Right Neck 20 20 Other: Date of Last Bowel Movement 06/27/18 06/27/18 # Bowel Movements 0 Narrative: NECK: Right Neck surgical wound clean HEENT: left eye with palpebral ecchymosis. GENERAL: This is a well-nourished, well-developed patient, in no apparent distress. CARDIOVASCULAR: Regular rate and rhythm without murmurs, gallops, or rubs. RESPIRATORY: Clear to auscultation. Breath sounds equal bilaterally. No wheezes , rales, or rhonchi. GASTROINTESTINAL: Abdomen soft, non-tender, nondistended. Normal active bowel sounds MUSCULOSKELETAL: Extremities without clubbing, cyanosis, or edema. NEURO: Alert & Oriented x4 to person, place, time, situation. Moves all ext x4 - Urinary Catheter Management Indwelling Urethral Catheter Cath placed during this visit: yes, but has since been removed by the nurse Reason for continuing: Decision to DC catheter Insertion date: 06/28/18 Insertion time: 12:15 Removal date: 06/29/18 Removal time: 09:50 Results - Labs CBC & Chem 7: 06/29/18 04:25 06/29/18 04:25 Laboratory Results - last 24 hr 06/28/18 06/29/18 06/29/18 17:16 04:25 04:25 WBC 6.1 RBC 2.47 L Hgb 9.4 L D Hct 26.7 L MCV 108.3 H MCH 37.9 H MCHC 35.0 RDW 14.3 Plt Count 54 L D MPV 9.0 Prelim Diff (Auto) Slide review pending Neut % (Auto) 57.9 Lymph % (Auto) 30.2 Collin % (Auto) 9.1 H Eos % (Auto) 2.5 Baso % (Auto) 0.3 Neut # (Auto) 3.6 Lymph # (Auto) 1.9 Collin # (Auto) 0.6 Eos # (Auto) 0.2 Baso # (Auto) 0.0 WBC Differential Manual diff final Seg Neuts % (Manual) 67 Band Neuts % (Manual) 2 Lymphocytes % (Manual) 25 Monocytes % (Manual) 4 Basophils % (Manual) 1 Promyelocytes % (Man) 1 H Abs Neuts (Manual) 4.3 Differential Comment . Platelet Estimate Low L Platelet Morphology Normal Sodium 140 Potassium 3.3 L Chloride 104 Carbon Dioxide 28.8 Anion Gap 7 BUN 8 Creatinine 0.52 Estimated GFR Greater than 89 POC Glucose 100 Random Glucose 85 Calcium 7.8 L Vitamin B12 06/29/18 06/29/18 06/29/18 04:30 08:10 11:29 WBC RBC Hgb Hct MCV MCH MCHC RDW Plt Count MPV Prelim Diff (Auto) Neut % (Auto) Lymph % (Auto) Collin % (Auto) Eos % (Auto) Baso % (Auto) Neut # (Auto) Lymph # (Auto) Collin # (Auto) Eos # (Auto) Baso # (Auto) WBC Differential Seg Neuts % (Manual) Band Neuts % (Manual) Lymphocytes % (Manual) Monocytes % (Manual) Basophils % (Manual) Promyelocytes % (Man) Abs Neuts (Manual) Differential Comment Platelet Estimate Platelet Morphology Sodium Potassium Chloride Carbon Dioxide Anion Gap BUN Creatinine Estimated GFR POC Glucose 96 128 H Random Glucose Calcium Vitamin B12 286 Microbiology 06/25/18 19:50 Blood - Peripheral Aerobic Blood Culture - Preliminary No growth in 4 days 06/25/18 19:50 Blood - Peripheral Anaerobic Blood Culture - Preliminary No growth in 4 days 06/25/18 19:45 Blood - Peripheral Aerobic Blood Culture - Preliminary No growth in 4 days 06/25/18 19:45 Blood - Peripheral Anaerobic Blood Culture - Preliminary No growth in 4 days - Imaging Chest X-Ray 06/25/18 19:37 CONCLUSION: 1. Hypoinflation with no acute cardiopulmonary process. 2. Stable degenerative spurring of the dorsal spine. Face CT 06/25/18 19:37 CONCLUSION: 1. No acute facial bone fractures. 2. Mild left maxillary sinus mucosal disease. 3. Bulky left carotid artery calcifications. Consider carotid ultrasound examination on an outpatient basis. Head CT 06/25/18 19:37 CONCLUSION: 1. No acute intracranial abnormality. Abdomen/Pelvis CT 06/25/18 21:06 CONCLUSION: 1. No acute CT abnormality in the abdomen or pelvis. 2. Stable nonobstructing calyceal calculi in the inferior and superior poles of the left kidney. 3. Sigmoid diverticulosis without evidence for diverticulitis. 4. Prominent hepatic steatosis. 5. 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 6. Additional stable ancillary findings, as above. Carotid Doppler Study 06/26/18 00:00 CONCLUSION: 1. Right Internal Carotid Artery: High-grade stenosis. 2. Left Internal Carotid Artery: Moderate atherosclerotic plaquing without hemodynamically significant stenosis. Neck CTA 06/27/18 00:00 CONCLUSION: 1. CTA examination confirms high grade, approximately 80-85% focal stenosis of the right internal carotid artery origin secondary to concentric predominantly noncalcified plaque. 2. Mild up to 45% stenosis of the left internal carotid artery origin secondary to bulky eccentric calcified plaque. 3. Vertebral arteries are patent bilaterally. 4. Bilateral pleural effusions. 5. 7 mm right thyroid nodule. - Procedures Severe stenosis of the right carotid artery Postoperative Diagnosis: Severe stenosis of the right carotid artery Date of procedure: 06/28/18 Procedure: Right carotid artery endarterectomy with pericardial patch angioplasty Implants: Pericardial patch Anesthesia: GETA Surgeon: Winston Stephen MD Assessment and Plan - Plan This is a pleasant 57 y/o Female admitted due to AMS likely secondary to alcohol intoxication w/ ANALISA and hypotension Resolved, found with high grade stenosis of the Right Carotid artery. planned for Carotid Endarterectomy for later today. Altered mental status Syncope -resolved Alcohol intoxication hypokalemia -CIWA protocol -replacing K, rechecking K in AM Severe Stenosis of the Right carotid artery, status post Right carotid artery endarterectomy with pericardial patch angioplasty. by doctor Winston Stephen. 06/28/18. recommended to advance diet as tolerated, remove LUPE drain and Piña Cath. ANALISA Hypotension- - resolved w/ IVFs Hypoglycemia- -resolved COPD -stable, DuoNeb's as needed Hypokalemia replaced and following. DVT GI prophylaxis -Teds SCDs -Subcu heparin -PPI for GI prophylaxis Code Status: Full code. Discussed Condition With: patient and Nurse Miss Her, Miss Mcarthur was not present at this time. Discharge Planning: Once cleared by specialist.
[2018-06-29] MEDS: Multivitamin Inj 10 ML, Thiamine Inj 100 MG, Folic Acid Inj 1 MG in Sodium Chlor 0.9% I... IV.SIG SCH (16:38)
[2018-06-30 04:27] LABS: Hematocrit 25.7 % (35.0-46.0); Hemoglobin 8.6 gm/dL (11.6-15.3); Mean Corpuscular HGB Conc 33.4 % (32.0-36.0); Mean Corpuscular Volume 110.9 fL (80.0-100.0); Mean Platelet Volume 8.8 fL (7.0-11.0); Platelet Count 45 th/mm3 (150-450); Red Blood Count 2.32 mil/mm3 (4.00-5.30); Red Cell Distribution Width 14.4 % (11.6-17.2); White Blood Count 5.7 th/mm3 (4.0-11.0)
[2018-06-30 05:02] LABS: Alanine Aminotransferase 25 U/L (10-53); Alkaline Phosphatase 48 U/L (45-117); Anion Gap 6 meq/L (5-15); Aspartate Aminotransferase 30 U/L (15-37); Blood Urea Nitrogen 9 mg/dL (7-18); Calcium 7.8 mg/dL (8.5-10.1); Chloride 103 meq/L (98-107); Glomerular Filtration Rate Greater Than 89 mL/min (>89); Glucose,Random 97 mg/dL (74-106); Potassium 3.7 meq/L (3.5-5.1); Sodium 139 meq/L (136-145); Total Protein 5.7 g/dL (6.4-8.2)
[2018-06-30] MEDS: Chlorhexidine Gluconate 2% 1 Pack (2 Cloths) TOPICAL SCH (06:53)
[2018-06-30] MEDS: Senna/Docusate Sodium 8.6/50 MG Tablet PO SCH (08:13)
[2018-06-30] MEDS: Lisinopril 10 MG Tablet PO SCH (08:13)
[2018-06-30] MEDS: Metoprolol Tartrate 25 MG Tablet PO SCH ×2 (08:13→21:23)
--- NOTE | 2018-06-30 08:24 | P.PN ---
Subjective Interval history: This is a pleasant 57 y/o Female admitted due to AMS likely secondary to alcohol intoxication w/ ANALISA and hypotension Resolved, found with high grade stenosis of the Right Carotid artery. planned for Carotid Endarterectomy for later today. 06/28: awaiting for surgical procedure. 06/29: With diagnosis of severe Stenosis of the Right carotid artery, status post Right carotid artery endarterectomy with pericardial patch angioplasty. by doctor Winston Stephen. 06/28/18. as per Vascular healthcare specialist recommended to advance diet as tolerated, remove LUPE drain and Piña Cath. 06/30: Stable in her bedroom stable, seen by Vascular healthcare specialist Status post CEA POD#2, okay to discharge from Vascular surgery and she will need Aspirin and Statins, arranged for her follow up in clinic in 3 to 4 weeks with US, no nausea, vomit or diarrhea. Physical Exam Vital signs: Vital Signs 06/29/18 09:56 06/29/18 11:00 06/29/18 12:00 Temperature 98.4 F Pulse Rate 75 76 Respiratory Rate 15 18 Blood Pressure 156/76 H Pulse Oximetry 98 06/29/18 13:00 06/29/18 14:00 06/29/18 15:00 Temperature 98.0 F Pulse Rate 74 78 70 Respiratory Rate 18 Blood Pressure 148/72 H Pulse Oximetry 96 06/29/18 16:00 06/29/18 17:00 06/29/18 18:00 Temperature Pulse Rate 78 74 76 Respiratory Rate Blood Pressure Pulse Oximetry 06/29/18 19:00 06/29/18 20:00 06/29/18 21:00 Temperature 98.8 F Pulse Rate 74 70 68 Respiratory Rate 18 Blood Pressure 161/74 H Pulse Oximetry 95 95 06/29/18 22:00 06/29/18 23:00 06/30/18 00:00 Temperature 98.5 F Pulse Rate 68 91 H 70 Respiratory Rate 16 Blood Pressure 157/71 H Pulse Oximetry 96 06/30/18 01:00 06/30/18 02:00 06/30/18 03:00 Temperature 98.3 F Pulse Rate 92 H 67 70 Respiratory Rate 18 Blood Pressure 163/77 H Pulse Oximetry 97 06/30/18 03:35 06/30/18 04:00 06/30/18 05:00 Temperature Pulse Rate 75 68 Respiratory Rate 16 Blood Pressure Pulse Oximetry 06/30/18 06:00 Temperature Pulse Rate 72 Respiratory Rate Blood Pressure Pulse Oximetry Intake & Output 06/29/18 06/30/18 06/30/18 18:59 06:59 18:59 Intake Total 1425 / 1425 680 / 680 Output Total 500 / 500 1400 / 1400 Balance 925 / 925 -720 / -720 Weight 69 kg Intake: IV 225 / 225 NS Inj 1,000 ML @ 125 mls/hr IV 200 / 200 .CONT .Q8H [facility] Rx#:[id number] KCl 40 mEq Premix Inj 40 meq In 100 ml @ 50 mls/hr IV.SIG Q2H PRN Rx#:[id number] Oral 1200 / 1200 680 / 680 Output: Urine 500 / 500 1400 / 1400 Other: # Voids 3 Date of Last Bowel Movement 06/27/18 06/28/18 # Bowel Movements 0 0 Narrative: NECK: Right Neck surgical wound clean HEENT: left eye with palpebral ecchymosis. GENERAL: This is a well-nourished, well-developed patient, in no apparent distress. CARDIOVASCULAR: Regular rate and rhythm without murmurs, gallops, or rubs. RESPIRATORY: Clear to auscultation. Breath sounds equal bilaterally. No wheezes , rales, or rhonchi. GASTROINTESTINAL: Abdomen soft, non-tender, nondistended. Normal active bowel sounds MUSCULOSKELETAL: Extremities without clubbing, cyanosis, or edema. NEURO: Alert & Oriented x4 to person, place, time, situation. Moves all ext x4 - Urinary Catheter Management Indwelling Urethral Catheter Cath placed during this visit: yes, but has since been removed by the nurse Reason for continuing: Decision to DC catheter Insertion date: 06/28/18 Insertion time: 12:15 Removal date: 06/29/18 Removal time: 09:50 Results - Labs CBC & Chem 7: 06/30/18 03:57 06/30/18 03:57 Laboratory Results - last 24 hr 06/29/18 06/29/18 06/29/18 08:10 11:29 16:42 WBC RBC Hgb Hct MCV MCH MCHC RDW Plt Count MPV Sodium Potassium Chloride Carbon Dioxide Anion Gap BUN Creatinine Estimated GFR POC Glucose 128 H 123 H Random Glucose Calcium Total Bilirubin AST ALT Alkaline Phosphatase Total Protein Albumin Vitamin B12 286 06/30/18 06/30/18 06/30/18 03:11 03:57 03:57 WBC 5.7 RBC 2.32 L Hgb 8.6 L Hct 25.7 L MCV 110.9 H MCH 37.0 H MCHC 33.4 RDW 14.4 Plt Count 45 L MPV 8.8 Sodium 139 Potassium 3.7 Chloride 103 Carbon Dioxide 30.0 Anion Gap 6 BUN 9 Creatinine 0.67 Estimated GFR Greater than 89 POC Glucose 120 H Random Glucose 97 Calcium 7.8 L Total Bilirubin 1.0 AST 30 ALT 25 Alkaline Phosphatase 48 Total Protein 5.7 L D Albumin 3.0 L Vitamin B12 06/30/18 08:10 WBC RBC Hgb Hct MCV MCH MCHC RDW Plt Count MPV Sodium Potassium Chloride Carbon Dioxide Anion Gap BUN Creatinine Estimated GFR POC Glucose 107 Random Glucose Calcium Total Bilirubin AST ALT Alkaline Phosphatase Total Protein Albumin Vitamin B12 Microbiology 06/25/18 19:50 Blood - Peripheral Aerobic Blood Culture - Preliminary No growth in 4 days 06/25/18 19:50 Blood - Peripheral Anaerobic Blood Culture - Preliminary No growth in 4 days 06/25/18 19:45 Blood - Peripheral Aerobic Blood Culture - Preliminary No growth in 4 days 06/25/18 19:45 Blood - Peripheral Anaerobic Blood Culture - Preliminary No growth in 4 days - Imaging Chest X-Ray 06/25/18 19:37 CONCLUSION: 1. Hypoinflation with no acute cardiopulmonary process. 2. Stable degenerative spurring of the dorsal spine. Face CT 06/25/18 19:37 CONCLUSION: 1. No acute facial bone fractures. 2. Mild left maxillary sinus mucosal disease. 3. Bulky left carotid artery calcifications. Consider carotid ultrasound examination on an outpatient basis. Head CT 06/25/18 19:37 CONCLUSION: 1. No acute intracranial abnormality. Abdomen/Pelvis CT 06/25/18 21:06 CONCLUSION: 1. No acute CT abnormality in the abdomen or pelvis. 2. Stable nonobstructing calyceal calculi in the inferior and superior poles of the left kidney. 3. Sigmoid diverticulosis without evidence for diverticulitis. 4. Prominent hepatic steatosis. 5. 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 6. Additional stable ancillary findings, as above. Carotid Doppler Study 06/26/18 00:00 CONCLUSION: 1. Right Internal Carotid Artery: High-grade stenosis. 2. Left Internal Carotid Artery: Moderate atherosclerotic plaquing without hemodynamically significant stenosis. Neck CTA 06/27/18 00:00 CONCLUSION: 1. CTA examination confirms high grade, approximately 80-85% focal stenosis of the right internal carotid artery origin secondary to concentric predominantly noncalcified plaque. 2. Mild up to 45% stenosis of the left internal carotid artery origin secondary to bulky eccentric calcified plaque. 3. Vertebral arteries are patent bilaterally. 4. Bilateral pleural effusions. 5. 7 mm right thyroid nodule. - Procedures Severe stenosis of the right carotid artery Postoperative Diagnosis: Severe stenosis of the right carotid artery Date of procedure: 06/28/18 Procedure: Right carotid artery endarterectomy with pericardial patch angioplasty Implants: Pericardial patch Anesthesia: GETA Surgeon: Winston Stephen MD Assessment and Plan - Plan This is a pleasant 57 y/o Female admitted due to AMS likely secondary to alcohol intoxication w/ NAALISA and hypotension Resolved, found with high grade stenosis of the Right Carotid artery. planned for Carotid Endarterectomy for later today. Altered mental status Syncope -resolved Hypertension uncontrolled increased Lisinopril to her Home Lisinopril dose of 30 mg daily and added HCTZ Alcohol intoxication no signs of Withdrawal. hypokalemia -CIWA protocol Severe Stenosis of the Right carotid artery, status post Right carotid artery endarterectomy with pericardial patch angioplasty. by doctor Winston Stephen. 06/28/18. recommended to advance diet as tolerated, remove LUPE drain and Piña Cath. 06/30: Seen by Vascular healthcare specialist Status post CEA POD#2, okay to discharge will need Aspirin and Statins, arranged for her follow up in clinic in 3 to 4 weeks with US. ANALISA - resolved w/ IVFs Hypoglycemia- -resolved COPD -stable, DuoNeb's as needed Hypokalemia replaced DVT GI prophylaxis -Teds SCDs -Subcu heparin -PPI for GI prophylaxis Code Status: Full code. Discussed Condition With: Patient and Nurse Miss Hernandez Discharge Planning: discharge home once his blood pressure controlled.
--- NOTE | 2018-06-30 08:30 | P.PNVS ---
Subjective Post Op Day #: 2 Procedure: R CEA Subjective/Hospital Course: looks great no SPRAGUE nani diet no neuro changes Objective Vital Signs / I&O: Vital Signs 06/29/18 09:56 06/29/18 11:00 06/29/18 12:00 Temperature 98.4 F Pulse Rate 75 76 Respiratory Rate 15 18 Blood Pressure 156/76 H Pulse Oximetry 98 06/29/18 13:00 06/29/18 14:00 06/29/18 15:00 Temperature 98.0 F Pulse Rate 74 78 70 Respiratory Rate 18 Blood Pressure 148/72 H Pulse Oximetry 96 06/29/18 16:00 06/29/18 17:00 06/29/18 18:00 Temperature Pulse Rate 78 74 76 Respiratory Rate Blood Pressure Pulse Oximetry 06/29/18 19:00 06/29/18 20:00 06/29/18 21:00 Temperature 98.8 F Pulse Rate 74 70 68 Respiratory Rate 18 Blood Pressure 161/74 H Pulse Oximetry 95 95 06/29/18 22:00 06/29/18 23:00 06/30/18 00:00 Temperature 98.5 F Pulse Rate 68 91 H 70 Respiratory Rate 16 Blood Pressure 157/71 H Pulse Oximetry 96 06/30/18 01:00 06/30/18 02:00 06/30/18 03:00 Temperature 98.3 F Pulse Rate 92 H 67 70 Respiratory Rate 18 Blood Pressure 163/77 H Pulse Oximetry 97 06/30/18 03:35 06/30/18 04:00 06/30/18 05:00 Temperature Pulse Rate 75 68 Respiratory Rate 16 Blood Pressure Pulse Oximetry 06/30/18 06:00 Temperature Pulse Rate 72 Respiratory Rate Blood Pressure Pulse Oximetry Intake & Output 06/29/18 06/30/18 06/30/18 18:59 06:59 18:59 Intake Total 1425 / 1425 680 / 680 Output Total 500 / 500 1400 / 1400 Balance 925 / 925 -720 / -720 Weight 69 kg Intake: IV 225 / 225 NS Inj 1,000 ML @ 125 mls/hr IV 200 / 200 .CONT .Q8H [facility] Rx#:[id number] KCl 40 mEq Premix Inj 40 meq In 25 / 25 100 ml @ 50 mls/hr IV.SIG Q2H [facility] Rx#:[id number] Oral 1200 / 1200 680 / 680 Output: Urine 500 / 500 1400 / 1400 Other: # Voids 3 Date of Last Bowel Movement 06/27/18 06/28/18 # Bowel Movements 0 0 Exam: sitting on edge of bed, eating neuro intact R neck incision looks good no hematoma Laboratory Results - last 24 hr 06/29/18 06/29/18 06/29/18 08:10 11:29 16:42 WBC RBC Hgb Hct MCV MCH MCHC RDW Plt Count MPV Sodium Potassium Chloride Carbon Dioxide Anion Gap BUN Creatinine Estimated GFR POC Glucose 128 H 123 H Random Glucose Calcium Total Bilirubin AST ALT Alkaline Phosphatase Total Protein Albumin Vitamin B12 286 06/30/18 06/30/18 06/30/18 03:11 03:57 03:57 WBC 5.7 RBC 2.32 L Hgb 8.6 L Hct 25.7 L MCV 110.9 H MCH 37.0 H MCHC 33.4 RDW 14.4 Plt Count 45 L MPV 8.8 Sodium 139 Potassium 3.7 Chloride 103 Carbon Dioxide 30.0 Anion Gap 6 BUN 9 Creatinine 0.67 Estimated GFR Greater than 89 POC Glucose 120 H Random Glucose 97 Calcium 7.8 L Total Bilirubin 1.0 AST 30 ALT 25 Alkaline Phosphatase 48 Total Protein 5.7 L D Albumin 3.0 L Vitamin B12 06/30/18 08:10 WBC RBC Hgb Hct MCV MCH MCHC RDW Plt Count MPV Sodium Potassium Chloride Carbon Dioxide Anion Gap BUN Creatinine Estimated GFR POC Glucose 107 Random Glucose Calcium Total Bilirubin AST ALT Alkaline Phosphatase Total Protein Albumin Vitamin B12 Microbiology 06/25/18 19:50 Aerobic Blood Culture - Preliminary Blood - Peripheral No growth in 4 days Anaerobic Blood Culture - Preliminary No growth in 4 days 06/25/18 19:45 Aerobic Blood Culture - Preliminary Blood - Peripheral No growth in 4 days Anaerobic Blood Culture - Preliminary No growth in 4 days Assessment and Plan - Assessment (1) Carotid stenosis, right Code(s): I65.21 - Occlusion and stenosis of right carotid artery Status: Acute - Plan POD#2 s/p R CEA looks great neuro intact clear to d/c from vascular standpoint needs ASA and statin indefinitely will arrange f/u in our clinic in 3-4 weeks with duplex pt has our office phone numbers for any questions, concerns Discharge Planning: anytime from a vascular surgery standpoint
[2018-06-30] MEDS ORDERED: Lisinopril 20 MG Tablet PO ONE (12:49)
[2018-06-30] MEDS ORDERED: Lisinopril 10 MG Tablet PO SCH ×2 (13:00→18:14)
[2018-06-30] MEDS: amLODIPine 5 MG Tablet PO SCH (14:51)
[2018-06-30] MEDS ORDERED: LORazepam 1 MG Tablet PO PRN (16:24)
[2018-07-01] MEDS: Senna/Docusate Sodium 8.6/50 MG Tablet PO SCH ×2 (03:55→09:11)
[2018-07-01] MEDS: Multivitamin Inj 10 ML, Thiamine Inj 100 MG, Folic Acid Inj 1 MG in Sodium Chlor 0.9% I... IV.SIG SCH (07:03)
--- NOTE | 2018-07-01 08:32 | P.PN ---
Subjective Interval history: This is a pleasant 57 y/o Female admitted due to AMS likely secondary to alcohol intoxication w/ ANALISA and hypotension Resolved, found with high grade stenosis of the Right Carotid artery. planned for Carotid Endarterectomy for later today. 06/28: awaiting for surgical procedure. 06/29: With diagnosis of severe Stenosis of the Right carotid artery, status post Right carotid artery endarterectomy with pericardial patch angioplasty. by doctor Winston Stephen. 06/28/18. as per Vascular treatment specialist recommended to advance diet as tolerated, remove LUPE drain and Piña Cath. 06/30: Stable in her bedroom stable, seen by Vascular treatment specialist Status post CEA POD#2, okay to discharge from Vascular surgery and she will need Aspirin and Statins, arranged for her follow up in clinic in 3 to 4 weeks with US, no 07/01: Seen in her bedroom, discussed with nurse Miss Pizarro, no nausea, vomit or diarrhea, okay to discharge from Vascular surgery, POD#3. better control of blood pressure will need to continue medicine titration as per PCP and Vascular surgery Physical Exam Vital signs: Vital Signs 06/30/18 09:00 06/30/18 10:00 06/30/18 10:59 Temperature Pulse Rate 65 80 Respiratory Rate Blood Pressure Pulse Oximetry 96 06/30/18 11:00 06/30/18 12:00 06/30/18 14:46 Temperature 98.4 F 98.6 F Pulse Rate 80 68 72 Respiratory Rate 18 17 Blood Pressure 170/80 H 184/79 H Pulse Oximetry 97 96 06/30/18 15:00 06/30/18 16:00 06/30/18 17:00 Temperature Pulse Rate 71 64 127 H Respiratory Rate Blood Pressure Pulse Oximetry 06/30/18 17:50 06/30/18 18:00 06/30/18 19:00 Temperature Pulse Rate 69 68 Respiratory Rate Blood Pressure 166/74 H Pulse Oximetry 06/30/18 19:25 06/30/18 20:00 06/30/18 21:00 Temperature 98 F Pulse Rate 70 74 76 Respiratory Rate 19 Blood Pressure 169/82 H Pulse Oximetry 96 06/30/18 21:09 06/30/18 22:00 06/30/18 23:00 Temperature Pulse Rate 68 65 Respiratory Rate Blood Pressure Pulse Oximetry 98 07/01/18 00:00 07/01/18 01:00 07/01/18 02:00 Temperature 98.2 F Pulse Rate 65 61 74 Respiratory Rate 19 Blood Pressure 160/76 H Pulse Oximetry 96 07/01/18 03:00 07/01/18 03:39 07/01/18 04:00 Temperature 98 F Pulse Rate 75 65 65 Respiratory Rate 19 Blood Pressure 157/76 H Pulse Oximetry 96 07/01/18 05:00 07/01/18 06:00 Temperature Pulse Rate 59 L 59 L Respiratory Rate Blood Pressure Pulse Oximetry Intake & Output 06/30/18 07/01/18 07/01/18 18:59 06:59 18:59 Intake Total 650 / 650 240 / 240 Output Total 600 / 600 900 / 900 Balance 50 / 50 -660 / -660 Weight 67.9 kg Intake: Oral 650 / 650 240 / 240 Output: Urine 600 / 600 900 / 900 Narrative: NECK: Right Neck surgical wound clean HEENT: left eye with palpebral ecchymosis. GENERAL: This is a well-nourished, well-developed patient, in no apparent distress. CARDIOVASCULAR: Regular rate and rhythm without murmurs, gallops, or rubs. RESPIRATORY: Clear to auscultation. Breath sounds equal bilaterally. No wheezes , rales, or rhonchi. GASTROINTESTINAL: Abdomen soft, non-tender, nondistended. Normal active bowel sounds MUSCULOSKELETAL: Extremities without clubbing, cyanosis, or edema. NEURO: Alert & Oriented x4 to person, place, time, situation. Moves all ext x4 - Urinary Catheter Management Indwelling Urethral Catheter Cath placed during this visit: yes, but has since been removed by the nurse Reason for continuing: Decision to DC catheter Insertion date: 06/28/18 Insertion time: 12:15 Removal date: 06/29/18 Removal time: 09:50 Results - Labs CBC & Chem 7: 06/30/18 03:57 06/30/18 03:57 Laboratory Results - last 24 hr 06/29/18 08:10 Heparin Dep Plt Ab OD 0.144 Hep-Induced Plt Ab Shelli Negative Microbiology 06/25/18 19:50 Blood - Peripheral Aerobic Blood Culture - Final No growth in 5 days 06/25/18 19:50 Blood - Peripheral Anaerobic Blood Culture - Final No growth in 5 days 06/25/18 19:45 Blood - Peripheral Aerobic Blood Culture - Final No growth in 5 days 06/25/18 19:45 Blood - Peripheral Anaerobic Blood Culture - Final No growth in 5 days - Imaging Chest X-Ray 06/25/18 19:37 CONCLUSION: 1. Hypoinflation with no acute cardiopulmonary process. 2. Stable degenerative spurring of the dorsal spine. Face CT 06/25/18 19:37 CONCLUSION: 1. No acute facial bone fractures. 2. Mild left maxillary sinus mucosal disease. 3. Bulky left carotid artery calcifications. Consider carotid ultrasound examination on an outpatient basis. Head CT 06/25/18 19:37 CONCLUSION: 1. No acute intracranial abnormality. . Abdomen/Pelvis CT 06/25/18 21:06 CONCLUSION: 1. No acute CT abnormality in the abdomen or pelvis. 2. Stable nonobstructing calyceal calculi in the inferior and superior poles of the left kidney. 3. Sigmoid diverticulosis without evidence for diverticulitis. 4. Prominent hepatic steatosis. 5. 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 6. Additional stable ancillary findings, as above. Carotid Doppler Study 06/26/18 00:00 CONCLUSION: 1. Right Internal Carotid Artery: High-grade stenosis. 2. Left Internal Carotid Artery: Moderate atherosclerotic plaquing without hemodynamically significant stenosis. Neck CTA 06/27/18 00:00 CONCLUSION: 1. CTA examination confirms high grade, approximately 80-85% focal stenosis of the right internal carotid artery origin secondary to concentric predominantly noncalcified plaque. 2. Mild up to 45% stenosis of the left internal carotid artery origin secondary to bulky eccentric calcified plaque. 3. Vertebral arteries are patent bilaterally. 4. Bilateral pleural effusions. 5. 7 mm right thyroid nodule. - Procedures Severe stenosis of the right carotid artery Postoperative Diagnosis: Severe stenosis of the right carotid artery Date of procedure: 06/28/18 Procedure: Right carotid artery endarterectomy with pericardial patch angioplasty Implants: Pericardial patch Anesthesia: GETA Surgeon: Winston Stephen MD Assessment and Plan - Plan This is a pleasant 57 y/o Female admitted due to AMS likely secondary to alcohol intoxication w/ ANALISA and hypotension Resolved, found with high grade stenosis of the Right Carotid artery. planned for Carotid Endarterectomy for later today. Altered mental status Syncope -resolved Hypertension better control today will continue Metoprolol 25 mg BID, Amlodipine increased to 10 mg daily and HCTZ 12.5 mg daily, Lisinopril 30 mg daily and titrate with PCP. Alcohol intoxication no signs of Withdrawal. hypokalemia -CIWA protocol Severe Stenosis of the Right carotid artery, status post Right carotid artery endarterectomy with pericardial patch angioplasty. by doctor Winston Stephen. 06/28/18. recommended to advance diet as tolerated, remove LUPE drain and Piña Cath. 06/30: Seen by Vascular treatment specialist Status post CEA POD#2, okay to discharge will need Aspirin and Statins, arranged for her follow up in clinic in 3 to 4 weeks with US. ANALISA - resolved w/ IVFs Hypoglycemia- -resolved COPD -stable, DuoNeb's as needed Hypokalemia replaced Tobacco dependence strongly recommended to stop smoking, Nicotine patch 14 mg given to avoid craving DVT GI prophylaxis -Teds SCDs -Subcu heparin -PPI for GI prophylaxis Code Status: Full code. Discussed Condition With: Patient and Nurse Miss Pizarro Discharge Planning: Discharge Home now and follow with PCP in three days and Vascular surgery in 3 to 4 weeks.
[2018-07-01] MEDS ORDERED: Lisinopril 10 MG Tablet PO SCH (09:00)
--- NOTE | 2018-07-01 09:04 | P.DS ---
Date of admission: 06/25/18 22:18 Primary care physician: No Primary Care Physician Attending physician on discharge: Hossein Velasco Anticipated date of discharge: 07/01/18 Brief History from admission: 57-year-old female With history of alcoholism, hypertension, homelessness, presents via EMS for evaluation of syncope and low blood pressure. Patient reports that for the past few days she has been feeling dizzy and lightheaded. She reports that today she was walking and she passed out twice. She was found on the sidewalk by a passerby who called paramedics. Patient is currently complaining of dizziness and lightheadedness as well as left-sided facial pain where she hit the ground. On examination she is also complaining of lower abdominal pain. She denies neck or back pain, chest pain, shortness of breath, fevers, chills, cough, congestion, open wounds. She denies any history of IV drug use. She has no other complaints at this time. Her alcohol level in the emergency department is 281. DS: Diagnosis - Discharge Diagnosis (1) Acidosis, lactic Status: Acute (2) Acute kidney injury Status: Acute (3) Alcohol intoxication Status: Acute (4) Carotid stenosis, right Status: Acute DS: Medications - Discharge Medications Prescriptions: amlodipine [Norvasc] 10 mg PO DAILY #60 tab aspirin [Aspirin Low Dose] 81 mg PO DAILY #30 tab atorvastatin [Lipitor] 40 mg PO HS #30 tab atorvastatin 40 mg PO HS #30 tab hydrochlorothiazide 12.5 mg PO DAILY #30 cap hydrocodone-acetaminophen 2 tab PO Q4H PRN #40 tab PRN Reason: Breakthrough Pain metoprolol tartrate 25 mg PO BID #60 tab nicotine 1 patch TRANSDERMAL Q24H #30 ea potassium chloride 16 meq PO DAILY #30 cap thiamine HCl (vitamin B1) 100 mg PO DAILY #30 tab DS: Summary Hospital Course: This is a pleasant 57 y/o Female admitted due to AMS likely secondary to alcohol intoxication w/ ANALISA and hypotension Resolved, found with high grade stenosis of the Right Carotid artery. planned for Carotid Endarterectomy for later today. 06/28: awaiting for surgical procedure. 06/29: With diagnosis of severe Stenosis of the Right carotid artery, status post Right carotid artery endarterectomy with pericardial patch angioplasty. by doctor Winston Stephen. 06/28/18. as per Vascular rn surgery recommended to advance diet as tolerated, remove LUPE drain and Piña Cath. 06/30: Stable in her bedroom stable, seen by Vascular rn surgery Status post CEA POD#2, okay to discharge from Vascular surgery and she will need Aspirin and Statins, arranged for her follow up in clinic in 3 to 4 weeks with , no 07/01: Seen in her bedroom, discussed with nurse Moira, no nausea, vomit or diarrhea, okay to discharge from Vascular surgery, POD#3. better control of blood pressure will need to continue medicine titration as per PCP and Vascular surgery - Urinary Catheter Management Indwelling Urethral Catheter Cath placed during this visit: yes, but has since been removed by the nurse Reason for continuing: Decision to DC catheter Insertion date: 06/28/18 Insertion time: 12:15 Removal date: 06/29/18 Removal time: 09:50 Results - Labs CBC & Chem 7: 06/30/18 03:57 06/30/18 03:57 Laboratory Results - last 24 hr 06/29/18 08:10 Heparin Dep Plt Ab OD 0.144 Hep-Induced Plt Ab Shelli Negative Microbiology 06/25/18 19:50 Blood - Peripheral Aerobic Blood Culture - Final No growth in 5 days 06/25/18 19:50 Blood - Peripheral Anaerobic Blood Culture - Final No growth in 5 days 06/25/18 19:45 Blood - Peripheral Aerobic Blood Culture - Final No growth in 5 days 06/25/18 19:45 Blood - Peripheral Anaerobic Blood Culture - Final No growth in 5 days Assessment and Plan - Plan This is a pleasant 57 y/o Female admitted due to AMS likely secondary to alcohol intoxication w/ ANALISA and hypotension Resolved, found with high grade stenosis of the Right Carotid artery. planned for Carotid Endarterectomy for later today. Altered mental status Syncope -resolved Hypertension better control today will continue Metoprolol 25 mg BID, Amlodipine increased to 10 mg daily and HCTZ 12.5 mg daily, Lisinopril 30 mg daily and titrate with PCP. Alcohol intoxication no signs of Withdrawal. hypokalemia -CIWA protocol Severe Stenosis of the Right carotid artery, status post Right carotid artery endarterectomy with pericardial patch angioplasty. by doctor Winston Stephen. 06/28/18. recommended to advance diet as tolerated, remove LUPE drain and Piña Cath. 06/30: Seen by Vascular rn surgery Status post CEA POD#2, okay to discharge will need Aspirin and Statins, arranged for her follow up in clinic in 3 to 4 weeks with US. ANALISA - resolved w/ IVFs Hypoglycemia- -resolved COPD -stable, DuoNeb's as needed Hypokalemia replaced Tobacco dependence strongly recommended to stop smoking, Nicotine patch 14 mg given to avoid craving DVT GI prophylaxis -Teds SCDs -Subcu heparin -PPI for GI prophylaxis Code Status: Full code. Discussed Condition With: Patient and Nurse Moira Discharge Planning: Discharge Home now and follow with PCP in three days and Vascular surgery in 3 to 4 weeks. - Time Spent with Patient Total time spent providing and/or coordinating discharge services: Greater than 30 minutes - Quality: VTE Deep Vein Thrombosis/Pulmonary Embolism Present on Admission: No Exam Vital signs: Vital Signs 06/30/18 10:00 06/30/18 10:59 06/30/18 11:00 Temperature 98.4 F Pulse Rate 80 80 Respiratory Rate 18 Blood Pressure 170/80 H Pulse Oximetry 96 97 06/30/18 12:00 06/30/18 14:46 06/30/18 15:00 Temperature 98.6 F Pulse Rate 68 72 71 Respiratory Rate 17 Blood Pressure 184/79 H Pulse Oximetry 96 06/30/18 16:00 06/30/18 17:00 06/30/18 17:50 Temperature Pulse Rate 64 127 H Respiratory Rate Blood Pressure 166/74 H Pulse Oximetry 06/30/18 18:00 06/30/18 19:00 06/30/18 19:25 Temperature 98 F Pulse Rate 69 68 70 Respiratory Rate 19 Blood Pressure 169/82 H Pulse Oximetry 96 06/30/18 20:00 06/30/18 21:00 06/30/18 21:09 Temperature Pulse Rate 74 76 Respiratory Rate Blood Pressure Pulse Oximetry 98 06/30/18 22:00 06/30/18 23:00 07/01/18 00:00 Temperature 98.2 F Pulse Rate 68 65 65 Respiratory Rate 19 Blood Pressure 160/76 H Pulse Oximetry 96 07/01/18 01:00 07/01/18 02:00 07/01/18 03:00 Temperature Pulse Rate 61 74 75 Respiratory Rate Blood Pressure Pulse Oximetry 07/01/18 03:39 07/01/18 04:00 07/01/18 05:00 Temperature 98 F Pulse Rate 65 65 59 L Respiratory Rate 19 Blood Pressure 157/76 H Pulse Oximetry 96 07/01/18 06:00 Temperature Pulse Rate 59 L Respiratory Rate Blood Pressure Pulse Oximetry Intake & Output 06/30/18 07/01/18 07/01/18 18:59 06:59 18:59 Intake Total 650 / 650 240 / 240 Output Total 600 / 600 900 / 900 Balance 50 / 50 -660 / -660 Weight 67.9 kg Intake: Oral 650 / 650 240 / 240 Output: Urine 600 / 600 900 / 900 Narrative: NECK: Right Neck surgical wound clean HEENT: left eye with palpebral ecchymosis. GENERAL: This is a well-nourished, well-developed patient, in no apparent distress. CARDIOVASCULAR: Regular rate and rhythm without murmurs, gallops, or rubs. RESPIRATORY: Clear to auscultation. Breath sounds equal bilaterally. No wheezes , rales, or rhonchi. GASTROINTESTINAL: Abdomen soft, non-tender, nondistended. Normal active bowel sounds MUSCULOSKELETAL: Extremities without clubbing, cyanosis, or edema. NEURO: Alert & Oriented x4 to person, place, time, situation. Moves all ext x4 Results Procedures completed during hospitalization: Severe stenosis of the right carotid artery Postoperative Diagnosis: Severe stenosis of the right carotid artery Date of procedure: 06/28/18 Procedure: Right carotid artery endarterectomy with pericardial patch angioplasty Implants: Pericardial patch Anesthesia: GETA Surgeon: Winston Stephen MD Labs on day of discharge: Labs from last 24 hours 06/29/18 08:10 Heparin Dep Plt Ab OD 0.144 Hep-Induced Plt Ab Shelli Negative - Impressions ITS Impressions Chest X-Ray 06/25/18 19:37 CONCLUSION: 1. Hypoinflation with no acute cardiopulmonary process. 2. Stable degenerative spurring of the dorsal spine. Face CT 06/25/18 19:37 CONCLUSION: 1. No acute facial bone fractures. 2. Mild left maxillary sinus mucosal disease. 3. Bulky left carotid artery calcifications. Consider carotid ultrasound examination on an outpatient basis. Head CT 06/25/18 19:37 CONCLUSION: 1. No acute intracranial abnormality. . Abdomen/Pelvis CT 06/25/18 21:06 CONCLUSION: 1. No acute CT abnormality in the abdomen or pelvis. 2. Stable nonobstructing calyceal calculi in the inferior and superior poles of the left kidney. 3. Sigmoid diverticulosis without evidence for diverticulitis. 4. Prominent hepatic steatosis. 5. 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 6. Additional stable ancillary findings, as above. Carotid Doppler Study 06/26/18 00:00 CONCLUSION: 1. Right Internal Carotid Artery: High-grade stenosis. 2. Left Internal Carotid Artery: Moderate atherosclerotic plaquing without hemodynamically significant stenosis. Neck CTA 06/27/18 00:00 CONCLUSION: 1. CTA examination confirms high grade, approximately 80-85% focal stenosis of the right internal carotid artery origin secondary to concentric predominantly noncalcified plaque. 2. Mild up to 45% stenosis of the left internal carotid artery origin secondary to bulky eccentric calcified plaque. 3. Vertebral arteries are patent bilaterally. 4. Bilateral pleural effusions. 5. 7 mm right thyroid nodule. Discharge Plan - Discharge Disposition Patient Disposition: Discharge Home - Discharge Condition Condition: Good - Discharge Order Discharge Orders: Discharge Order (Routine); Ordered 07/01/18 Ordered By: Hossein Velasco Vascular Surgery Clear for Discharge (Routine); Ordered 06/29/18 Ordered By: Winston Stephen - Discharge Details Anticipated Discharge Date: 07/01/18 Discharge Comment: Follow up with PCP in three days - Physicians Team Primary Care Provider: Primary Care Physici,No Attending Provider: Hossein Velasco Other Providers: Janak Ibrahim MD ; Tan Castillo MD ; Winston Stephen MD ; Gina Austin MD
[2018-07-01] MEDS: amLODIPine 5 MG Tablet PO SCH (09:11)
[2018-07-01] MEDS: Metoprolol Tartrate 25 MG Tablet PO SCH (09:11)
[2018-07-01 09:23] VITALS: BP 155/74; RESP 16; TEMP 98.4; O2SAT 98
[2018-07-01 10:03] VITALS: PULSE 90
== END 2018-07-01 10:36 | disposition home or self-care (01) ==
LOC: NEPE 18:52 → NEDA 22:18 → HIMC 06-26 00:35 → HCIS 06-27 20:31 → HCVI 06-28 14:26 → HCPC 06-29 10:33
PROVIDERS: ADMIT Internal Medicine; ATTEND Internal Medicine